=== PATIENT | female | born 1945 | race Caucasian/White ===

== ENCOUNTER → 2017-06-15 12:13 | Outpatient (CLI) | payer MEDICARE, OTHER, SELFPAY ==
--- NOTE | 2017-06-15 12:19 | HPBI_ITS ---
MAMMOGRAPHY - BILATERAL SCREENING REASON FOR EXAM: Female, 72 years old. Routine annual screening examination. PERTINENT HISTORY: Sisters with breast cancer. Mother with breast cancer. Prior left excisional breast biopsy and stereotactic biopsy. TECHNIQUE: Digital bilateral breast lázaro (3D mammographic acquisition) in the CC and MLO projections. 2-D mediolateral oblique (MLO) and craniocaudad (CC) views of both breasts were obtained. CAD: Full Field Digital Mammography with Computer Added Detection was performed. COMPARISON: Comparison is made with prior study dated May 26, 2016 and February 28, 2015. FINDINGS: Breast Composition: There are scattered areas of fibroglandular density. Vision 1.2 cm x 1.3 cm well-defined nodular density in the medial retroareolar region of the right breast. Correlation with ultrasound is recommended. Stable bilateral benign appearing axillary lymph nodes. No other significant abnormalities are identified. HPBI/SCREENING MAMM (CAD), BILAT IMPRESSION: 1.2 cm x 1.3 cm nodular density in the medial retroareolar region of the right breast as described. Correlation with ultrasound is recommended. ASSESSMENT CATEGORY: BIRADS Category 0: Incomplete. Need additional imaging evaluation. A letter regarding these results will be sent to the patient by the facility within 30 days. Approximately 10% of breast cancers are not detected by mammography. A normal mammogram should not delay biopsy of a clinically suspicious abnormality. [id number] Electronically Signed: Arron Alas MD at 14:04 EDT Tel [phone], Service support ,
== END ==
PROVIDERS: Family Provider Family Medicine; PCP Family Medicine; Visit Provider Family Medicine
DX: Z12.31 Encounter for screening mammogram for malignant neoplasm of breast (principal)
CPT/HCPCS: 77063; 77067

== ENCOUNTER → 2017-06-20 09:57 | Outpatient (CLI) | payer MEDICARE, OTHER, SELFPAY ==
--- NOTE | 2017-06-20 09:58 | US_ITS ---
STUDY: ULTRASOUND BREAST - RIGHT REASON FOR EXAM: Female, 72 years old. Abnormal screening mammogram. TECHNIQUE: Axial and longitudinal images of the RIGHT breast were performed with a high resolution ultrasound transducer. COMPARISON: Comparison is made with prior mammogram dated June 15, 2017. FINDINGS: RIGHT Breast: There is a 9 mm x 9 mm x 5 mm cyst in the 3:00 position breast at 2 cm from the nipple. This corresponds to the mammographic findings. This also evidence of a focally dilated duct in the retroareolar region of the breasts. US/Breast Limited Unilateral IMPRESSION: The mammographic neurology corresponds to a 9 mm x 9 mm x 5 mm cyst. Routine mammographic follow-up is recommended. ASSESSMENT CATEGORY: BIRADS Category 2: Benign. A letter regarding these results will be sent to the patient by the facility within 30 days. Electronically Signed: Arron Alas MD at 11:17 EDT Tel [phone], Service support ,
== END ==
PROVIDERS: Family Provider Family Medicine; PCP Family Medicine; Visit Provider Family Medicine
DX: R92.8 Other abnormal and inconclusive findings on diagnostic imaging of breast (principal)
CPT/HCPCS: 76642

== ENCOUNTER → 2017-06-23 12:57 | Outpatient (CLI) | payer MEDICARE, OTHER, SELFPAY ==
--- NOTE | 2017-06-23 13:04 | HPBD_ITS ---
STUDY: DUAL ENERGY X-RAY ABSORPTIOMETRY / DXA REASON FOR EXAM: Female, 72 years old. 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 COMPARISON: None. FINDINGS: Lumbar Spine (L1-L4): g/cm2 (1.624) / T-score (3.7) / Z-score (5.4) Findings are suggestive of normal bone density . Left Femoral Neck: g/cm2 (0.911) / T-score (-0.9) / Z-score (0.8) Right Femoral Neck: g/cm2 (0.969) / T-score (-0.5) / Z-score (1.2) HPBD/Dexa Bone Density Study (HP) IMPRESSION: The patient is considered normal as outlined below according to World Jose Martin Organization (WHO) criteria . Reference Information: The T-score is the number of standard deviations above or below the standard which is normal for young adults at their peak bone mineral density. The World Health Organization (WHO) interprets the T-scores as follows: Above -1 Normal bone density Between -1 and -2.5 Osteopenia Equal to / or below -2.5 Osteoporosis As a practical clinical guideline, osteopenia may be graded as follows: Mild -1 through -1.5 Moderate -1.6 through -2.0 Severe -2.1 through -2.4 The Z-score is the number of standard deviations above or below age-matched controls. A Z-score of less than -1.5 would be considered abnormal. References: 1. NIH Osteoporosis and Related Bone Diseases http://www.osteo.org 2. International Society for Clinical Densitometry http://www.iscd.org 3. National Osteoporosis Foundation http://www.nof.org Electronically Signed: Sly Tsang MD at 10:30 EDT Tel , Service support ,
== END ==
PROVIDERS: Family Provider Family Medicine; PCP Family Medicine; Visit Provider Family Medicine
DX: Z78.0 Asymptomatic menopausal state (principal)
CPT/HCPCS: 77080

== ENCOUNTER → 2017-08-09 11:25 | Outpatient (CLI) | payer MEDICARE, OTHER, SELFPAY ==
--- NOTE | 2017-08-09 11:30 | RAD_ITS ---
STUDY: X-RAY - LUMBAR SPINE REASON FOR EXAM: Female, 72 years old. Degenerative disc disease of the lumbar spine. TECHNIQUE: 5 view(s) of the lumbar spine were obtained. COMPARISON: Prior comparison studies are not available for review at this time. FINDINGS: There is straightening of the normal lumbar lordosis. There is no substantial scoliosis. There is a normal alignment of the vertebrae. There is multilevel endplate spondylosis of the lumbar vertebrae. There is multi-level degenerative disc disease with multi-level disc space narrowing. There is no demonstrated fracture. There is multilevel degenerative arthropathy of the facet joints of the lumbar spine. There is multilevel thoracic spondylosis of the thoracic spine. There are multiple pelvic calcifications and may represent phleboliths. RAD/L/S Spine Min 4 Views IMPRESSION: Severe multilevel degenerative disc disease and degenerative arthropathy of the lumbar spine. Electronically Signed: Nata English MD at 11:27 EDT , Service support ,
--- NOTE | 2017-08-09 11:30 | RAD_ITS ---
STUDY: X-RAY - PELVIS AND LEFT HIP REASON FOR EXAM: Female, 72 years old. Left-sided hip pain. TECHNIQUE: Radiological exam, hip, unilateral, with pelvis when performed; 2 or 3 views. COMPARISON: None. FINDINGS: There is a non-specific bowel gas pattern. Normal visualized soft tissue structures. There is degenerative disc disease of lower lumbar spine with disc space narrowing and vacuum disc phenomenon. The sacrum and iliac wings are obscured by bowel gas. Normal bilateral superior and inferior pubic rami. Normal pubic symphysis. Normal bilateral ischial tuberosities. Normal visualized femoral head. There is osteoarthritic spur formation of the acetabular rim. There is moderate articular joint space narrowing of the hip. RAD/Hip 2-3 Views with Pelvis IMPRESSION: 1. Degenerative arthropathy of the left hip with joint space narrowing and predisposition to femoral acetabular impingement. 2. Multilevel degenerative disc disease of the lumbar spine. Electronically Signed: Nata English MD at 10:52 EDT , Service support ,
== END ==
PROVIDERS: Family Provider Family Medicine; PCP Family Medicine; Visit Provider Family Medicine
DX: M51.36 Other intervertebral disc degeneration, lumbar region (principal)
CPT/HCPCS: 72110; 73502

== ENCOUNTER → 2017-08-16 09:38 | Outpatient (CLI) | payer MEDICARE, OTHER, SELFPAY ==
[2017-08-16 12:48] LABS: Creatinine, Serum 1.14 mg/dL (0.55-1.02); EST Glomerular Filtration Rate 50 mL/min (>60); Est Glom Filt Rate - Afr Amer 60 mL/min (>60)
== END ==
PROVIDERS: Family Provider Family Medicine; PCP Family Medicine; Visit Provider Orthopaedic Surgery
DX: M47.896 Other spondylosis, lumbar region (principal); M25.562 Pain in left knee; N18.9 Chronic kidney disease, unspecified
CPT/HCPCS: 36415; 82565

== ENCOUNTER → 2018-01-31 09:08 | Outpatient (CLI) | payer MEDICARE, OTHER, SELFPAY ==
[2018-01-31 10:31] LABS: ALB/GLOB Ratio 0.9 RATIO (0.9-2.4); AST(SGOT) 25 U/L (15-37); Alanine Aminotransfer ALT/SGPT 28 U/L (13-56); Albumin, Serum 3.6 g/dL (3.2-5.0); Alkaline Phosphatase 106 U/L (45-117); Anion Gap 8 (5-15); BUN 15 mg/dL (7-18); Chloride 106 mmol/L (98-107); EST Glomerular Filtration Rate 58 mL/min (>60); Est Glom Filt Rate - Afr Amer 70 mL/min (>60); Glucose 89 mg/dL (74-106); Protein, Total 7.6 g/dL (6.4-8.2); Sodium Level 143 mmol/L (136-145)
== END ==
PROVIDERS: Family Provider Family Medicine; PCP Family Medicine; Visit Provider Family Medicine
DX: I10 Essential (primary) hypertension (principal)
CPT/HCPCS: 36415; 80053

== ENCOUNTER → 2018-05-09 09:09 | Outpatient (CLI) | payer MEDICARE, OTHER, SELFPAY ==
[2018-05-09 12:36] LABS: ALB/GLOB Ratio 1.1 RATIO (0.9-2.4); AST(SGOT) 19 U/L (15-37); Alanine Aminotransfer ALT/SGPT 28 U/L (13-56); Albumin, Serum 3.8 g/dL (3.2-5.0); Alkaline Phosphatase 109 U/L (45-117); Anion Gap 9 (5-15); BUN 22 mg/dL (7-18); BUN/Creat Ratio 22.5 RATIO (10-20); Chloride 104 mmol/L (98-107); Creatinine, Serum 0.98 mg/dL (0.55-1.02); EST Glomerular Filtration Rate 59 mL/min (>60); Est Glom Filt Rate - Afr Amer 72 mL/min (>60); Globulin 3.4 g/dL (2.2-4.2); Glucose 76 mg/dL (74-106); Potassium 4.6 mmol/L (3.5-5.1); Protein, Total 7.2 g/dL (6.4-8.2); Sodium Level 143 mmol/L (136-145)
== END ==
PROVIDERS: Family Provider Family Medicine; PCP Family Medicine; Visit Provider Family Medicine
DX: I10 Essential (primary) hypertension (principal)
CPT/HCPCS: 36415; 80053

== ENCOUNTER → 2018-07-25 12:18 | Outpatient (CLI) | payer MEDICARE, OTHER, SELFPAY ==
--- NOTE | 2018-07-25 12:21 | BI_ITS ---
MAMMOGRAPHY - BILATERAL SCREENING 3-D TOMOSYNTHESIS REASON FOR EXAM: Female, 73 years old. Bilateral Screening 3-D tomosynthesis PERTINENT HISTORY: No significant family history. TECHNIQUE: 2-D mammograms and 3-D Tomosynthesis of the breast (s) were performed. CAD was performed. COMPARISON: June 15, 2017 FINDINGS: The breast composition is composed of scattered fibroglandular density. I now see an approximately 1.2 cm, ovoid nodule within the mid to deep right breast positioned slightly superior to the nipple line and within the inner region. This finding is positioned approximately 7 cm from the nipple base. Recommend further evaluation with sonographic characterization. The left breast appears stable without evidence of malignancy. BI/SCREENING MAMM (CAD), BILAT IMPRESSION: Follow-up as above further evaluation as above. ASSESSMENT CATEGORY: BIRADS Category 0: Incomplete. Need additional imaging evaluation as above. A letter regarding these results will be sent to the patient by the facility within 30 days. Right breast sonographic evaluation indicated. FOLLOW UP RECOMMENDATION: Yearly follow up mammogram recommended. (A) Approximately 10% of breast cancers are not detected by mammography. A normal mammogram should not delay biopsy of a clinically suspicious abnormality. Electronically Signed: Kaiser Portillo MD at 14:01 EDT , Service support ,
== END ==
PROVIDERS: Family Provider Family Medicine; PCP Family Medicine; Referring Provider Family Medicine; Visit Provider Family Medicine
DX: Z12.31 Encounter for screening mammogram for malignant neoplasm of breast (principal)
CPT/HCPCS: 77063; 77067

== ENCOUNTER → 2018-07-28 10:56 | Outpatient (CLI) | payer MEDICARE, OTHER, SELFPAY ==
--- NOTE | 2018-07-28 10:59 | US_ITS ---
STUDY: ULTRASOUND BREAST - RIGHT REASON FOR EXAM: Female, 73 years old. Abnormal mammogram TECHNIQUE: Axial and longitudinal images of the RIGHT breast were performed with a high resolution ultrasound transducer. COMPARISON: 06/20/2017 FINDINGS: RIGHT Breast: There is a stable hypoechoic 0.6 x 0.9 x 0.7 cm nonshadowing nonvascular hypoechoic mass at 3:00. There is no interval change since the previous study. There is no new suspicious shadowing lesion architectural distortion or associated calcifications. US/Breast Limited Unilateral IMPRESSION: Stable well-defined hypoechoic 9 shadowing, nonvascular mass. This likely either represents lymph node or fibroadenoma. No specific follow-up is needed unless there is a change in its presentation. ASSESSMENT CATEGORY: BIRADS Category 2: Benign. A letter regarding these results will be sent to the patient by the facility within 30 days. Electronically Signed: Stewart Vargas MD at 13:07 EDT , Service support ,
== END ==
PROVIDERS: Family Provider Family Medicine; PCP Family Medicine; Referring Provider Family Medicine; Visit Provider Family Medicine
DX: R92.8 Other abnormal and inconclusive findings on diagnostic imaging of breast (principal)
CPT/HCPCS: 76642

== ENCOUNTER → 2018-11-08 | Outpatient (CLI) | payer MEDICARE, OTHER, SELFPAY ==
[2018-11-08 13:03] LABS: Anion Gap 5 (5-15); BUN 17 mg/dL (7-18); BUN/Creat Ratio 17.9 RATIO (10-20); Calcium,Total 8.8 mg/dL (8.5-10.1); Chloride 106 mmol/L (98-107); Cholesterol 188 mg/dL (200); Creatinine, Serum 0.95 mg/dL (0.55-1.02); EST Glomerular Filtration Rate 61 mL/min (>60); Est Glom Filt Rate - Afr Amer 74 mL/min (>60); Glucose 94 mg/dL (74-106); High Density Lipoprotein 45 mg/dL; Potassium 4.1 mmol/L (3.5-5.1); Sodium Level 138 mmol/L (136-145); Triglycerides 215 mg/dL; Very Low Density Lipoprotein 43 mg/dL (5-40)
== END | disposition home or self-care (01) ==
LOC: MFPLAB 10:50
PROVIDERS: Family Provider Family Medicine; PCP Family Medicine; Referring Provider Family Medicine; Visit Provider Family Medicine
DX: I10 Essential (primary) hypertension (principal)
CPT/HCPCS: 36415; 80048; 80061

== ENCOUNTER → 2018-11-15 10:10 | Outpatient (CLI) | payer MEDICARE, OTHER, SELFPAY ==
--- NOTE | 2018-11-15 10:13 | RAD_ITS ---
STUDY: X-RAY - RIGHT KNEE REASON FOR EXAM: Female, 73 years old. Pain TECHNIQUE: 4 view(s) of the knee. COMPARISON: None. FINDINGS: Normal visualized distal femur. Normal visualized proximal tibia and fibula. Normal proximal tibiofibular articulation. Medial compartment prosthesis is noted. Narrowed lateral femorotibial compartment. Normal patellofemoral articulation with mild patellar spurring. The soft tissue structures are unremarkable. RAD/Knee 4 or More Views IMPRESSION: Degenerative changes. Status post medial compartment prosthesis placement Electronically Signed: Eugene Hagan MD at 20:49 EDT , Service support ,
--- NOTE | 2018-11-15 10:13 | RAD_ITS ---
STUDY: X-RAY - LEFT KNEE REASON FOR EXAM: Female, 73 years old. Pain TECHNIQUE: 4 view(s) of the knee. COMPARISON: None. FINDINGS: Normal visualized distal femur. Normal visualized proximal tibia and fibula. Normal proximal tibiofibular articulation. Narrowed medial femorotibial compartment with spurring of the medial femoral and tibial condyles.. Normal lateral femorotibial compartment. Narrowed patellofemoral articulation with mild patellar spurring. The soft tissue structures are unremarkable. RAD/Knee 4 or More Views IMPRESSION: Moderate osteoarthritic changes. Electronically Signed: Eugene Hagan MD at 21:06 EDT , Service support ,
== END ==
PROVIDERS: Family Provider Family Medicine; PCP Family Medicine; Referring Provider Family Medicine; Visit Provider Family Medicine
DX: M25.561 Pain in right knee (principal); M25.562 Pain in left knee
CPT/HCPCS: 73564

== ENCOUNTER → 2018-12-29 10:50 | Outpatient (CLI) | payer MEDICARE, OTHER, SELFPAY ==
[2018-12-29 12:39] LABS: Absolute Lymphocyte Count 1.38 X10^3/uL (0.83-4.51); Absolute Neutrophil Count 3.2 X10^3/uL (2.0-7.7); Basophil# 0.08 X10^3/uL; Basophil% 1.4 % (0-1); Eosinophil# 0.23 X10^3/uL; Eosinophils% 4.1 % (0-5); Hematocrit 48.4 % (37-47); Hemoglobin 15.5 g/dL (12.0-15.0); Lymphocyte # 1.38 X10^3/ul (4.0); Lymphocyte % 24.8 % (19-41); Mean Corpuscular Hgb 30.2 pg (27.0-32.0); Mean Corpuscular Volume 94.2 fL (81-99); Mean Platelet Vol. 11.4 fl (6.2-12.0); Monocyte# 0.63 X10^3/uL; Monocyte% 11.3 % (0-10); NRBC Flagged by Analyzer 0 % (0-5); Neutrophil # 3.23 X10^3/uL (2.7-7.7); Neutrophil % 58.2 % (47-70); Platelet Count 215 K/mm3 (150-450); RBC Distribution Width CV 12.7 % (11.6-14.6); RBC Distribution Width SD 44.2 fl (35.1-43.9); Red Blood Count 5.14 M/mm3 (4.2-5.4); White Blood Count 5.6 K/mm3 (4.4-11.0)
[2018-12-29 12:51] LABS: Erythrocyte Sedimentation Rate 6 mm/hr (0-30)
== END ==
PROVIDERS: Family Provider Family Medicine; PCP Family Medicine; Referring Provider Specialist; Visit Provider Specialist
DX: Z01.812 Encounter for preprocedural laboratory examination (principal); Z01.818 Encounter for other preprocedural examination
CPT/HCPCS: 36415; 85025; 85652; 86140

== ENCOUNTER → 2019-01-04 13:43 | Outpatient (CLI) | payer MEDICARE, OTHER, SELFPAY ==
[2019-01-04 14:30] LABS: RBC /Synovial Fluid 0.109 10^6/uL (0); Synovial Fld Mononuclear WBC % 84.6 %; Synovial Fld Polynuclear WBC # 0.092 10^3/uL; Synovial Fld Polynuclear WBC % 15.4 %
[2019-01-04 14:34] LABS: AUTO B FLUID DILUENT BKGD CT WBC <0.1 RBC <0.01 (W<.1,R<.01); Appearance /Synovial Fluid Sl Cl (CLEAR); Color / Synovial Fluid Red (Pale Yellow); Source / Synovial Fluid RIGHT KNEE
[2019-01-04 15:13] LABS: Body Fluid QC Type(s) BF1Q; Lymph 56 %; Monocyte /Synovial Fluid 23 %; Neutrophil 21 % (0-25)
[2019-01-05 12:30] LABS: Pathologist Comment Reviewed
== END ==
PROVIDERS: Family Provider Family Medicine; PCP Family Medicine; Referring Provider Specialist; Visit Provider Specialist
DX: Z96.651 Presence of right artificial knee joint (principal)
CPT/HCPCS: 87015; 87070; 87075; 87101; 87116; 87205; 87206; 89050; 89051

== ENCOUNTER → 2019-08-01 11:18 | Outpatient (CLI) | payer MEDICARE, SELFPAY ==
[2019-08-01 15:58] LABS: Anion Gap 5 (5-15); BUN 15 mg/dL (7-18); BUN/Creat Ratio 14.9 RATIO (10-20); Calcium,Total 9.2 mg/dL (8.5-10.1); Chloride 105 mmol/L (98-107); Cholesterol 196 mg/dL (200); Creatinine, Serum 1.01 mg/dL (0.55-1.02); EST Glomerular Filtration Rate 57 mL/min (>60); Est Glom Filt Rate - Afr Amer 69 mL/min (>60); Glucose 98 mg/dL (74-106); High Density Lipoprotein 47 mg/dL; Potassium 4.3 mmol/L (3.5-5.1); Sodium Level 137 mmol/L (136-145); Triglycerides 216 mg/dL; Very Low Density Lipoprotein 43 mg/dL (5-40)
== END ==
PROVIDERS: PCP Family Medicine; Referring Provider Family Medicine; Visit Provider Family Medicine
DX: I10 Essential (primary) hypertension (principal)
CPT/HCPCS: 36415; 80048; 80061

== ENCOUNTER → 2019-08-14 10:55 | Outpatient (CLI) | payer MEDICARE, SELFPAY ==
--- NOTE | 2019-08-14 10:58 | BI_ITS ---
MAMMOGRAPHY - BILATERAL SCREENING REASON FOR EXAM: Female, 74 years old. Routine annual screening examination. PERTINENT HISTORY: Sister with breast cancer. Mother with breast cancer. Prior left stereotactic biopsy and excisional breast biopsy. TECHNIQUE: Digital bilateral breast constance (3D mammographic acquisition) in the CC and MLO projections. 2-D mediolateral oblique (MLO) and craniocaudad (CC) views of both breasts were obtained. CAD: Full Field Digital Mammography with Computer Added Detection was performed. COMPARISON: Comparison is made with prior examination dated July 25, 2018 and June 15, 2017. FINDINGS: Breast Composition: There are scattered areas of fibroglandular density. There are no dominant masses or suspicious calcifications. Stable 1.2 cm ovoid nodule in the deep mid right breast. This is unchanged. No other significant abnormalities are identified. There has been no significant change since the prior study. BI/SCREEN MAMM (CAD) W/CONSTANCE BILAT IMPRESSION: Stable bilateral screening mammogram. Yearly follow-up mammogram recommended. (A) ASSESSMENT CATEGORY: BIRADS Category 2: Benign. A letter regarding these results will be sent to the patient by the facility within 30 days. Approximately 10% of breast cancers are not detected by mammography. A normal mammogram should not delay biopsy of a clinically suspicious abnormality. [id number] Electronically Signed: Arron Alas, at 12:45 EDT , Service support ,
--- NOTE | 2019-08-14 11:12 | BD_ITS ---
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 COMPARISON: Comparison is made with prior study dated June 23, 2017. FINDINGS: Lumbar Spine (L1-L4): g/cm2 (1.395) / T-score (1.9) / Z-score (3.6) Findings are suggestive of normal bone density with a low fracture risk. Left Femur Total: g/cm2 (1.083) / T-score (0.6) / Z-score (2.2) Left Femoral Neck: g/cm2 (0.919) / T-score (-0.9) / Z-score (1.0) The T-Scores on the most recent prior examination were: Lumbar Spine (L1-L4): There has been worsening of bone density since the previous examination. Left Femur Total: which represents a worsening of 1.9%. BD/Dexa Bone Density Study IMPRESSION: The patient is considered normal as outlined below according to World Jose Martin Organization (WHO) criteria with a low fracture risk. There has been worsening of bone density since the previous examination. Reference Information: The T-score is the number of standard deviations above or below the standard which is normal for young adults at their peak bone mineral density. The World Health Organization (WHO) interprets the T-scores as follows: Above -1 Normal bone density Between -1 and -2.5 Osteopenia Equal to / or below -2.5 Osteoporosis As a practical clinical guideline, osteopenia may be graded as follows: Mild -1 through -1.5 Moderate -1.6 through -2.0 Severe -2.1 through -2.4 The Z-score is the number of standard deviations above or below age-matched controls. A Z-score of less than -1.5 would be considered abnormal. References: 1. NIH Osteoporosis and Related Bone Diseases http://www.osteo.org 2. International Society for Clinical Densitometry http://www.iscd.org 3. National Osteoporosis Foundation http://www.nof.org Electronically Signed: Arron Alas, at 12:02 EDT , Service support ,
== END ==
PROVIDERS: PCP Family Medicine; Referring Provider Family Medicine; Visit Provider Family Medicine
DX: Z12.31 Encounter for screening mammogram for malignant neoplasm of breast (principal); Z78.0 Asymptomatic menopausal state; Z80.3 Family history of malignant neoplasm of breast
CPT/HCPCS: 77063; 77067; 77080

== ENCOUNTER 2020-03-01 15:30 | Inpatient (IN) | payer MEDICARE, SELFPAY ==
[2020-03-01] VITALS (13 sets, daily range): BP systolic 114–156; BP diastolic 50–101; PULSE 68–82; RESP 17–29; TEMP 37.3–38.7; O2SAT 92–97; BMI 45.7; BMI 46.7
--- NOTE | 2020-03-01 15:52 | ED.DCSUM_ITS ---
- ER Visit Summary Date of Service: 03/01/20 Chief Complaint: Lightheaded History of Present Illness: The patient is a [address] Gale. She reports that she is lightheaded and began yesterday. She had to increase when she stands. She has not passed out. She denies any vertigo. Patient does not realize that she has a fever. She reports that she has chills that started this morning. She has mild shortness of breath and cough. She denies any chest pain. She reports that she has been nauseated and vomited 4 times today. No blood in her emesis. No diarrhea. She does complain of dysuria that began today as well. She also complains of suprapubic and back pain and is concerned that she has a kidney stone. Patient complains of generalized weakness. She reports that because of this she fell getting into the car. She denies any injuries. No blow to the head or loss of consciousness. No neck, back, shoulder, wrist, or hip pain. Physical Examination: Vitals: 101.6, 156/101, 71, 20, 97% room air which is not hypoxic. General: Well-nourished and well-developed. Head: Normocephalic atraumatic. Neck: Supple, no lymphadenopathy. No JVD. Nontender. Cardiovascular: Regular rate and rhythm. No murmurs. Respiratory: No respiratory distress. Clear to auscultation bilaterally. Abdominal: Soft, nontender, nondistended, normal bowel sounds. No guarding, rebound, or peritoneal signs. Back: Nontender. No CVA tenderness. Extremities: Nontender, no edema. Skin: Normal color, no rash. Neurologic: Alert and oriented ?3. Cranial nerves II through XII are intact. Normal strength and sensation. Psych: Normal affect. Test Results: Lactic acid is 2.1. Chem-7 shows a sodium 134, BUN 25, creatinine 1.24. CBC shows a white count of 15.8 with 89 segs neutrophils and 4 lymphocytes. Hemoglobin 15.1. LFTs show an AST of 44. UA shows 50-100 white blood cells, 10-25 red blood cells, leukocytes, blood, and ketones. COVID-19 rapid antigen is negative. Clinical Impression(s) from Imaging Studies Chest X-Ray 03/01/20 16:35 IMPRESSION: Nonacute portable x-ray examination of the chest. Electronically Signed: Laith Chandler MD ([place]) at 17:04 EST , Service support , Abdomen/Pelvis CT 03/01/20 16:41 IMPRESSION: 1. Left perinephric stranding and mild left hydroureter (no hydronephrosis). No urinary tract calcifications. May represent recently passed calculus or urinary tract infection, however, a distal ureteral obstruction cannot be entirely excluded. Electronically Signed: Laith Chandler MD ([place]) at 16:59 EST , Service support , Emergency Department Course and Treatment: Patient refused pain or nausea medications. She was treated with Tylenol p.o. She is resting more comfortably. She was given 2 g of Rocephin IV. Treatment Plan: Patient has generalized weakness and is quite ataxic. She will be discussed with the hospitalist and admitted for further evaluation and treatment. Disposition: Admitted in stable condition. Impression: 1. Pyelonephritis. 2. Sepsis. This note was generated with [employer] dictation software. It may contain incorrect words, spelling, and punctuation that were not noted in review of the chart prior to signing ED Disposition - Plan for ED Patient: Referrals: Brendon Gonzalez MD [Primary Care Provider] -
[2020-03-01] MEDS: Acetaminophen 500 MG Tablet 1000 MG PO (16:04)
[2020-03-01 16:29] LABS: Absolute Lymphocyte Count 0.59 X10^3/uL (0.83-4.51); Absolute Neutrophil Count 14.2 X10^3/uL (2.0-7.7); Basophil# 0.06 X10^3/uL; Basophil% 0.4 % (0-1); Eosinophil# 0.05 X10^3/uL; Eosinophils% 0.3 % (0-5); Hematocrit 45.6 % (37-47); Hemoglobin 15.1 g/dL (12.0-15.0); Lymphocyte # 0.59 X10^3/ul (4.0); Lymphocyte % 3.7 % (19-41); Mean Corp Hgb Conc 33.1 g/dL (32-36); Mean Corpuscular Hgb 30.9 pg (27.0-32.0); Mean Corpuscular Volume 93.3 fL (81-99); Mean Platelet Vol. 11.4 fl (6.2-12.0); Monocyte# 0.88 X10^3/uL; Monocyte% 5.6 % (0-10); NRBC Flagged by Analyzer 0 % (0-5); Neutrophil # 14.15 X10^3/uL (2.7-7.7); Neutrophil % 89.4 % (47-70); POSITIVE DIFFERENTIAL YES; Platelet Count 180 K/mm3 (150-450); RBC Distribution Width CV 13.8 % (11.6-14.6); RBC Distribution Width SD 46.4 fl (35.1-43.9); Red Blood Count 4.89 M/mm3 (4.2-5.4); White Blood Count 15.8 K/mm3 (4.4-11.0)
--- NOTE | 2020-03-01 16:35 | RAD_ITS ---
STUDY: X-RAY CHEST REASON FOR EXAM: Female, 74 years old. DIZZINESS. TECHNIQUE: AP COMPARISON: None. FINDINGS: EKG leads project over the chest. The lungs are clear and expanded. There is no demonstrated pleural abnormality. There is borderline cardiomegaly. Normal mediastinum and micha. Normal visualized pulmonary arteries. Normal visualized aortic arch and descending thoracic aorta. Normal visualized thoracic spine. Normal visualized ribs, clavicles, and shoulders. There is no demonstrated abnormality of the visualized soft tissue structures of the upper abdomen. RAD/Chest 1 View (Portable) IMPRESSION: Nonacute portable x-ray examination of the chest. Electronically Signed: Laith Chandler MD ([place]) at 17:04 EST , Service support ,
[2020-03-01 16:40] LABS: Bacteria 0 SEEN /hpf (None Seen); Mucous, Urine 0 SEEN /hpf (<or=2+)
--- NOTE | 2020-03-01 16:41 | CT_ITS ---
STUDY: CT ABDOMEN AND PELVIS WITHOUT CONTRAST REASON FOR EXAM: Female, 74 years old. KIDNEY STONE. HX OF KIDNEY STONES, HYSTERECTOMY, AND HTN RADIATION DOSAGE (If Supplied By Facility): CTDIvol = ( 23.07 ) mGy, DLP = ( 1020.05 ) mGycm TECHNIQUE: Transaxial images were obtained from the dome of the diaphragm to the symphysis pubis without oral contrast, and without intravenous contrast. Sagittal and coronal images were reconstructed. Individualized dose optimization techniques were used for this CT. COMPARISON: None. FINDINGS: The visualized lung bases are unremarkable. The visualized portions of the heart are within normal limits. Simple cyst of the right hepatic lobe with operative changes along the right posterior hepatic capsule. There are multiple gallstones. Normal spleen. Normal pancreas. Normal bilateral adrenal glands. Normal right kidney. Asymmetric left perinephric stranding with mild left hydroureter, however, no reji hydronephrosis. No urinary tract calcifications are identified. Normal visualized stomach. There is a small duodenal diverticulum. There are multiple colonic diverticula consistent with diverticulosis. The appendix is visualized and appears normal. There is diffuse atherosclerotic calcification of the abdominal aorta, without a demonstrated aneurysm. Normal inferior vena cava. Normal retroperitoneum. Normal urinary bladder. There is absence of the uterus consistent with a prior hysterectomy. Operative changes of the abdominal wall. There are diffuse degenerative changes of the visualized lumbar spine. CT/Abdomen/Pelvis without Cont IMPRESSION: 1. Left perinephric stranding and mild left hydroureter (no hydronephrosis). No urinary tract calcifications. May represent recently passed calculus or urinary tract infection, however, a distal ureteral obstruction cannot be entirely excluded. Electronically Signed: Laith Chandler MD ([place]) at 16:59 EST , Service support ,
[2020-03-01 16:44] LABS: Color, Urine Yellow (Yellow); Glucose, Dipstick Normal (Normal); Ketone-Dipstick 5 mg/dl (Negative); Leukocyte Esterase-Dipstick 500 /ul (Negative); Nitrite-Dipstick Negative (Negative); Occult Blood-Urine 150 /ul (Negative); Protein-Dipstick 30 mg/dl (Negative); Specific Gravity, Urine 1.005 (1.002-1.030); Urine Bilirubin Dipstick Negative (Negative); Urine Clarity Cloudy (Clear); Urine Urobilinogen Normal (Normal)
[2020-03-01 16:45] LABS: ALB/GLOB Ratio 0.8 RATIO (0.9-2.4); AST(SGOT) 44 U/L (15-37); Alanine Aminotransfer ALT/SGPT 36 U/L (13-56); Albumin, Serum 3.3 g/dL (3.2-5.0); Alkaline Phosphatase 96 U/L (45-117); Anion Gap 8 (5-15); BUN 25 mg/dL (7-18); BUN/Creat Ratio 20.2 RATIO (10-20); Calcium,Total 8.7 mg/dL (8.5-10.1); Chloride 102 mmol/L (98-107); Creatinine, Serum 1.24 mg/dL (0.55-1.02); EST Glomerular Filtration Rate 45 mL/min (>60); Est Glom Filt Rate - Afr Amer 54 mL/min (>60); Estimated Creatinine Clearance 31.96 ml/min; Globulin 4.2 g/dL (2.2-4.2); Glucose 103 mg/dL (74-106); Potassium 4.9 mmol/L (3.5-5.1); Protein, Total 7.5 g/dL (6.4-8.2); Sodium Level 134 mmol/L (136-145)
[2020-03-01 16:49] LABS: Differential Indicated SCAN CRITERIA MET
[2020-03-01 16:55] LABS: Lactic Acid 2.1 mmol/L (0.4-1.9)
[2020-03-01 17:08] LABS: Amorphous Sediment 1+ PHOS; Red Blood Cells-Urine 10-25 SEEN /hpf (0-5); Squamous Epithelial Cells - UA 0-5 SEEN /hpf (5-10); White Blood Cells 50-100 SEEN /hpf (0-5)
[2020-03-01 17:08] LABS: Differential Comment SCANNED; Platelet Estimate ADEQUATE (ADEQ); Red Cell Morphology NORM C+C NORMAL (NORM C&C)
--- NOTE | 2020-03-01 17:27 | NURSING ---
PCU SEPSIS, PYELONPHRITIS MICHAEL
[2020-03-01 18:25] LABS: International Normalized Ratio 1.1; Partial Thromboplast Time 29.9 Seconds (24.1-36.2); Prothrombin Time (Protime)PT. 13.9 SECONDS (11.7-14.9)
[2020-03-01] MEDS: 0.9% Normal Saline 1,000 ML 100 ML IV (19:41)
--- NOTE | 2020-03-01 20:08 | PCM.HP.STD ---
History of Present Illness Date of Admission: 03/01/20 Chief Complaint: Back pain and dysuria with fever The patient is a 74 year old F PMH as below who presents to the hospital with with back pain last night that kept her up until about 1 AM this morning. She was able to sleep but then this morning she woke up with a fever, and burning with urination. She denies any shortness of breath or cough but she states that her daughter was significantly concerned because she tested positive for Covid on Tuesday. The patient states that she has not seen her daughter for the last 2weeks and had a negative Covid antigen here in the ER. Chest x-ray was unremarkable and she remains on room air and is not hypoxic. She says that she feels better with fluids and the dose of antibiotics. She did have CT scan of her abdomen and pelvis which did show a left perinephric stranding, the UA demonstrated 500 leukocyte esterase with negative nitrite 10-25 red blood cells with 50-100 white blood cells with no bacteria. It is possible to be an infection there could also have been a passed stone. She did have an elevated lactic acid to 2.1 and a creatinine that was slightly elevated to 1.24 up from her baseline of around 1. Past Medical History Allergies Sulfa (Sulfonamide Antibiotics) Allergy (Verified 03/01/20 15:30) Rash Home Medications: Ambulatory Orders Medication Instructions Recorded Acetaminophen [Tylenol Arthritis] 500 mg PO BID 02/26/15 Amlodipine Besylate/Valsartan 1 each PO DAILY 02/26/15 [Amlodipine-Valsartan 5-320 mg] Ascorbic Acid [Vitamin C] 500 mg PO DAILY@0800 02/26/15 Atenolol [Tenormin (Beta Delfina)] 50 mg PO QHS 02/26/15 Cetirizine HCl [Allergy Relief] 25 mg PO DAILY 02/26/15 Cholecalciferol (Vitamin D3) 5,000 unit PO DAILY 02/26/15 [Vitamin D3] Cyanocobalamin (Vitamin B-12) 1,000 mcg PO DAILY 02/26/15 [Vitamin B-12] Gluc Carbone/Chondro Carbone A/Vit C/Mn 1 each PO BID 02/26/15 [Glucosamine 1,500 Complex Cp] Multivitamins,Therapeutic 1 tablet PO DAILY 02/26/15 [Multivitamin] Pregabalin [Lyrica] 50 mg PO BID 02/26/15 Ranitidine [Zantac] 150 mg PO DAILY 02/26/15 Solifenacin Succinate [Vesicare] 10 mg PO DAILY 02/26/15 Surgical History: arthroscopy, knee, hysterectomy Smoking Status: Never smoker Alcohol: None Drugs: None - *Family History Maternal History Items: Heart Disease Paternal History Items: Heart Disease Review of Systems Constitutional: Reports: Chills, Fever. Denies: Weight Change HEENT: Reports: Head Aches. Denies: Sinus Congestion, Sinus Drainage Cardiovascular: Denies: Chest Pain, Palpitations Respiratory: Denies: Cough, Shortness of breath at rest, Sputum production Gastrointestinal: Denies: Abdominal Pain, Nausea, Vomiting Genitourinary: Reports: Dysuria Musculoskeletal: Reports: Back Pain. Denies: Joint Pain, Joint Tenderness Skin: Denies: Rash, Wounds Neurological: Denies: Numbness, Tingling, Focal weakness Psychiatric: Denies: Anxiety, Depression Hematologic/ Lymphatic: Denies: Easy Bruising, Easy Bleeding VTE Information - Inpt Only VTE Present on Admission: No - Physical Exam Vitals/I&O's: Vital Signs Temp Pulse Resp BP Pulse Ox 99.8 F H 75 18 114/51 L 92 03/01/20 18:20 03/01/20 18:53 03/01/20 18:20 03/01/20 18:20 03/01/20 18:20 Oxygen Delivery Method Room Air Weight: 255 lb 9.6 oz Body Mass Index (BMI) 46.7 Intake and Output for Last 24 Hours 02/28/20 02/29/20 03/01/20 23:59 23:59 23:59 Intake Total 550 / 550 Balance 550 / 550 General: Alert, Oriented x3, Cooperative, No apparent distress HEENT: Atraumatic, PERRLA, EOMI, Normocephalic Oral: Dry Mucosa Neck: Supple, No JVD Lungs: Clear to auscultation, Normal air movement, No rhonchi, No wheeze, No rales Cardiovascular: Regular rate, Regular Rhythm, Normal S1, Normal S2, No murmurs Abdomen: Soft, Non Tender, Non-Distended, No Hepato-splenomegaly Extremities: No edema, Capillary Refill Less than 3 Seconds Skin: No rashes, No breakdown Neurological: Neuro grossly intact, Sensory exam intact to light touch and pain Psych/Mental Status: Normal Affect, Appropriate Microbiology Past 72 Hours 03/01/20 16:00 Mucosa - Nose SARS-CoV-2 Antigen (Rapid) - Final Laboratory Results 03/01/20 16:10: WBC 15.8 H, RBC 4.89, Hgb 15.1 H, Hct 45.6, MCV 93.3, MCH 30.9, MCHC 33.1, RDW Std Deviation 46.4 H, RDW Coeff of Luis Felipe 13.8, Plt Count 180, MPV 11.4, Immature Gran % (Auto) 0.600, Neut % (Auto) 89.4 H, Lymph % (Auto) 3.7 L, [place] % (Auto) 5.6, Eos % (Auto) 0.3, Baso % (Auto) 0.4, Absolute Neuts (auto) 14.2 H, Absolute Lymphs (auto) 0.59 L, Nucleated RBC % 0, Differential Comment SCANNED, Platelet Estimate ADEQUATE, RBC Morphology NORM C+C 03/01/20 16:10: PT 13.9, INR 1.1, APTT 29.9 03/01/20 16:10: Sodium 134 L, Potassium 4.9, Chloride 102, Carbon Dioxide 24.0, Anion Gap 8, BUN 25 H, Creatinine 1.24 H, Estim Creat Clear Calc 31.96, Est GFR (MDRD) Af Amer 54 L, Est GFR (MDRD) Non-Af 45 L, BUN/Creatinine Ratio 20.2 H, Glucose 103, Calcium 8.7, Total Bilirubin 0.70, AST 44 H, ALT 36, Alkaline Phosphatase 96, Total Protein 7.5, Albumin 3.3, Globulin 4.2, Albumin/Globulin Ratio 0.8 L 03/01/20 16:10: Lactic Acid 2.1 H* 03/01/20 16:30: Urine Color Yellow, Urine Clarity Cloudy, Urine pH 7.0, Ur Specific [place] 1.005, Urine Protein 30 H, Urine Glucose (UA) Normal, Urine Ketones 5 H, Urine Occult Blood 150 H, Urine Nitrite Negative, Urine Bilirubin Negative, Urine Urobilinogen Normal, Ur Leukocyte Esterase 500 H, Urine RBC 10-25 SEEN, Urine WBC 50-100 SEEN, Ur Squamous Epith Cells 0-5 SEEN, Amorphous Sediment 1+ PHOS, Urine Bacteria 0 SEEN, Urine Mucus 0 SEEN Current Medications Acetaminophen (Acetaminophen 325 Mg Tablet) 650 mg PO Q6H PRN PRN PRN Reason: Pain Score 1-10/Temp > 100.7 F Enoxaparin Sodium (Enoxaparin 40 Mg/0.4 Ml Syringe) 40 mg SC DAILY BERNY Sodium Chloride () 250 mls @ 15 mls/hr IV .[id number] PRN PRN Reason: Saline Flush Sodium Chloride () 250 mls @ 15 mls/hr IV .[id number] PRN PRN Reason: Additional IVPB Infusion Sodium Chloride () 1,000 mls @ 100 mls/hr IV .Q10H [facility] Last Admin: 03/01/20 19:41 Dose: 100 mls/hr Documented by: Ceftriaxone Sodium 2 gm/ (Sodium Chloride) 50 mls @ 100 mls/hr IV Q24 BERNY Melatonin (Melatonin 3 Mg Tablet) 3 mg PO QHS PRN PRN PRN Reason: INSOMNIA Ondansetron HCl (Ondansetron 4 Mg/2 Ml Vial) 4 mg IV Q8H PRN PRN PRN Reason: NAUSEA/VOMITING Sodium Chloride (0.9% Saline Lock 10 Ml Syringe) 10 - 40 ml IV UD PRN PRN Reason: SALINE FLUSH Assessment/Plan 1. Sepsis secondary to acute pyelonephritis -Based on SIRS criteria and source on CT scan, she is septic -Lactic acid was slightly elevated 2.1, will continue with IV fluids -Urine cultures pending, UA did not show any bacteria so this could also be a stone that passed -Continue with Rocephin -Denies any Covid contacts, her daughter who tested positive was tested on Tuesday and her results came back yesterday. Trinh states that she has not seen her daughter in over 2 weeks and is asymptomatic with a negative Covid antigen test 2. Hypertension -Blood pressures are stable -With her slight elevation in her kidney function will wait to recheck her renal function in the morning before restarting her Norvasc and valsartan combination -Can continue with atenolol 3. GERD -Stable -Continue with Zantac DVT: Lovenox Inpatient E&M: 61178 Init Hosp L2
[2020-03-01 20:19] LABS: Reflex Lactate? Y
[2020-03-01] MEDS: Atenolol 50 MG Tablet PO (21:11)
[2020-03-01] MEDS: Pregabalin 50 MG Capsule PO (21:11)
[2020-03-01] MEDS: Acetaminophen 325 MG Tablet 650 MG PO (21:16)
[2020-03-01 22:48] LABS: Lactic Acid 1.5 mmol/L (0.4-1.9)
[2020-03-02] VITALS (10 sets, daily range): BP systolic 101–156; BP diastolic 33–74; PULSE 71–84; RESP 16–18; TEMP 36.7–38.4; O2SAT 93–96
[2020-03-02] MEDS: 0.9% Normal Saline 1,000 ML 100 ML IV ×2 (05:08→15:36)
[2020-03-02 06:54] LABS: Absolute Lymphocyte Count 0.99 X10^3/uL (0.83-4.51); Absolute Neutrophil Count 14.8 X10^3/uL (2.0-7.7); Basophil# 0.07 X10^3/uL; Basophil% 0.4 % (0-1); Eosinophil# 0.05 X10^3/uL; Eosinophils% 0.3 % (0-5); Hematocrit 45.8 % (37-47); Hemoglobin 14.6 g/dL (12.0-15.0); Lymphocyte # 0.99 X10^3/ul (4.0); Lymphocyte % 5.8 % (19-41); Mean Corp Hgb Conc 31.9 g/dL (32-36); Mean Corpuscular Hgb 30.5 pg (27.0-32.0); Mean Corpuscular Volume 95.8 fL (81-99); Mean Platelet Vol. 10.6 fl (6.2-12.0); Monocyte# 1.04 X10^3/uL; Monocyte% 6.1 % (0-10); NRBC Flagged by Analyzer 0 % (0-5); Neutrophil # 14.84 X10^3/uL (2.7-7.7); Neutrophil % 86.6 % (47-70); Platelet Count 163 K/mm3 (150-450); RBC Distribution Width SD 49.6 fl (35.1-43.9); Red Blood Count 4.78 M/mm3 (4.2-5.4); White Blood Count 17.1 K/mm3 (4.4-11.0)
[2020-03-02 07:18] LABS: Anion Gap 5 (5-15); BUN 16 mg/dL (7-18); BUN/Creat Ratio 14.3 RATIO (10-20); Calcium,Total 8.4 mg/dL (8.5-10.1); Chloride 109 mmol/L (98-107); Creatinine, Serum 1.12 mg/dL (0.55-1.02); EST Glomerular Filtration Rate 51 mL/min (>60); Est Glom Filt Rate - Afr Amer 61 mL/min (>60); Estimated Creatinine Clearance 35.38 ml/min; Glucose 108 mg/dL (74-106); Potassium 4.1 mmol/L (3.5-5.1); Sodium Level 139 mmol/L (136-145)
[2020-03-02] MEDS: Ascorbic Acid 500 MG Tablet PO (08:40)
[2020-03-02] MEDS: Pregabalin 50 MG Capsule PO ×2 (08:40→20:42)
[2020-03-02] MEDS: Famotidine 20 MG Tablet PO (08:40)
[2020-03-02] MEDS: Enoxaparin 40 MG/0.4 ML Syringe SC (08:41)
--- NOTE | 2020-03-02 12:51 | PN_ITS ---
Reason for Visit: sepsis Subjective: Feeling better. No abdominal pain. Vitals/I&O's: Vital Signs Temp Pulse Resp BP Pulse Ox 37.5 C H 75 18 133/60 H 94 03/02/20 10:30 03/02/20 10:30 03/02/20 10:30 03/02/20 10:30 03/02/20 10:30 Oxygen Delivery Method Room Air Weight: 115.938 kg Body Mass Index (BMI) 46.7 Intake and Output for Last 24 Hours 02/29/20 03/01/20 03/02/20 23:59 23:59 23:59 Intake Total 1165 / 1165 2365 / 2365 Output Total 1500 / 1500 Balance 1165 / 1165 865 / 865 General: Alert, No apparent distress HEENT: Atraumatic, Normocephalic Oral: Moist Mucosa, No Gingival or Mucosal Lesions/ Ulcerations Neck: No Nodes, Thyroid Normal Size and Texture Lungs: Clear to auscultation, Normal air movement, No rhonchi, No wheeze, No rales Cardiovascular: Regular rate, Regular Rhythm, Normal S1, Normal S2, No murmurs Abdomen: Bowel Sounds Present, Soft, Non Tender, Non-Distended, No Hepato- splenomegaly Extremities: No edema, No Calf Tenderness Microbiology Past 72 Hours 03/01/20 16:25 Blood Culture (Wb) - Anticubital Right Blood Culture - Preli minary 03/01/20 16:30 Urine, Clean Catch Urine Culture - Preliminary Gram negative edmar 03/01/20 16:10 Blood Culture (Wb) - Right Forearm Blood Culture - Preliminary 03/01/20 16:00 Mucosa - Nose SARS-CoV-2 Antigen (Rapid) - Final Laboratory Results 03/01/20 16:10: WBC 15.8 H, RBC 4.89, Hgb 15.1 H, Hct 45.6, MCV 93.3, MCH 30.9, MCHC 33.1, RDW Std Deviation 46.4 H, RDW Coeff of Luis Felipe 13.8, Plt Count 180, MPV 11.4, Immature Gran % (Auto) 0.600, Neut % (Auto) 89.4 H, Lymph % (Auto) 3.7 L, [place] % (Auto) 5.6, Eos % (Auto) 0.3, Baso % (Auto) 0.4, Absolute Neuts (auto) 14.2 H, Absolute Lymphs (auto) 0.59 L, Nucleated RBC % 0, Differential Comment SCANNED, Platelet Estimate ADEQUATE, RBC Morphology NORM C+C 03/01/20 16:10: PT 13.9, INR 1.1, APTT 29.9 03/01/20 16:10: Sodium 134 L, Potassium 4.9, Chloride 102, Carbon Dioxide 24.0, Anion Gap 8, BUN 25 H, Creatinine 1.24 H, Estim Creat Clear Calc 31.96, Est GFR (MDRD) Af Amer 54 L, Est GFR (MDRD) Non-Af 45 L, BUN/Creatinine Ratio 20.2 H, Glucose 103, Calcium 8.7, Total Bilirubin 0.70, AST 44 H, ALT 36, Alkaline Phosphatase 96, Total Protein 7.5, Albumin 3.3, Globulin 4.2, Albumin/Globulin Ratio 0.8 L 03/01/20 16:10: Lactic Acid 2.1 H* 03/01/20 16:30: Urine Color Yellow, Urine Clarity Cloudy, Urine pH 7.0, Ur Specific [place] 1.005, Urine Protein 30 H, Urine Glucose (UA) Normal, Urine Ketones 5 H, Urine Occult Blood 150 H, Urine Nitrite Negative, Urine Bilirubin Negative, Urine Urobilinogen Normal, Ur Leukocyte Esterase 500 H, Urine RBC 10- 25 SEEN, Urine WBC 50-100 SEEN, Ur Squamous Epith Cells 0-5 SEEN, Amorphous Sediment 1+ PHOS, Urine Bacteria 0 SEEN, Urine Mucus 0 SEEN 03/01/20 21:55: Lactic Acid 1.5 03/02/20 06:48: WBC 17.1 H, RBC 4.78, Hgb 14.6, Hct 45.8, MCV 95.8, MCH 30.5, MCHC 31.9 L, RDW Std Deviation 49.6 H, RDW Coeff of Luis Felipe 14.0, Plt Count 163, MPV 10.6, Immature Gran % (Auto) 0.800, Neut % (Auto) 86.6 H, Lymph % (Auto) 5.8 L, [place] % (Auto) 6.1, Eos % (Auto) 0.3, Baso % (Auto) 0.4, Absolute Neuts (auto) 14.8 H, Absolute Lymphs (auto) 0.99, Nucleated RBC % 0 03/02/20 06:48: Sodium 139, Potassium 4.1, Chloride 109 H, Carbon Dioxide 25.0, Anion Gap 5, BUN 16, Creatinine 1.12 H, Estim Creat Clear Calc 35.38, Est GFR (MDRD) Af Amer 61, Est GFR (MDRD) Non-Af 51 L, BUN/Creatinine Ratio 14.3, Glucose 108 H, Calcium 8.4 L Current Medications Acetaminophen (Acetaminophen 325 Mg Tablet) 650 mg PO Q6H PRN PRN PRN Reason: Pain Score 1-10/Temp > 100.7 F Last Admin: 03/01/20 21:16 Dose: 650 mg Documented by: Ascorbic Acid (Ascorbic Acid 500 Mg Tablet) 500 mg PO DAILY@0800 [facility] Last Admin: 03/02/20 08:40 Dose: 500 mg Documented by: Atenolol (Atenolol 50 Mg Tablet) 50 mg PO QHS [facility] Last Admin: 03/01/20 21:11 Dose: 50 mg Documented by: Enoxaparin Sodium (Enoxaparin 40 Mg/0.4 Ml Syringe) 40 mg SC DAILY [facility] Last Admin: 03/02/20 08:41 Dose: 40 mg Documented by: Famotidine (Famotidine 20 Mg Tablet) 20 mg PO DAILY [facility] Last Admin: 03/02/20 08:40 Dose: 20 mg Documented by: Sodium Chloride () 250 mls @ 15 mls/hr IV .[id number] PRN PRN Reason: Saline Flush Sodium Chloride () 250 mls @ 15 mls/hr IV .[id number] PRN PRN Reason: Additional IVPB Infusion Sodium Chloride () 1,000 mls @ 100 mls/hr IV .Q10H [facility] Last Infusion: 03/02/20 11:59 Dose: 100 mls/hr Documented by: Ceftriaxone Sodium 2 gm/ (Sodium Chloride) 50 mls @ 100 mls/hr IV Q24 [facility] Last Infusion: 03/02/20 09:20 Dose: Infused Documented by: Melatonin (Melatonin 3 Mg Tablet) 3 mg PO QHS PRN PRN PRN Reason: INSOMNIA Ondansetron HCl (Ondansetron 4 Mg/2 Ml Vial) 4 mg IV Q8H PRN PRN PRN Reason: NAUSEA/VOMITING Pregabalin (Pregabalin 50 Mg Capsule) 50 mg PO BID [facility] Last Admin: 03/02/20 08:40 Dose: 50 mg Documented by: Sodium Chloride (0.9% Saline Lock 10 Ml Syringe) 10 - 40 ml IV UD PRN PRN Reason: SALINE FLUSH STROKE Vital Signs/Narrative: Vital Signs Temp Pulse Resp BP Pulse Ox 03/02/20 10:30 37.5 C H 75 18 133/60 H 94 Medical Necessity - Tobacco Use Smoking Status: Never smoker Assessment/Plan 1. severe sepsis: * POA * 2/2 * supportive mgmt 2. Acute pyelonephritis * CTX * follow up cultures 3. VTE prophylaxis: LMWH Inpatient E&M: 24486 Subs Hosp L2
[2020-03-02] MEDS: Acetaminophen 325 MG Tablet 650 MG PO (16:18)
[2020-03-02] MEDS: Atenolol 50 MG Tablet PO (20:42)
[2020-03-03] MEDS: 0.9% Normal Saline 1,000 ML 100 ML IV ×2 (00:52→11:58)
[2020-03-03 02:00] VITALS: BP 155/77; PULSE 73; RESP 18; TEMP 38.8; O2SAT 94
[2020-03-03] MEDS: Acetaminophen 325 MG Tablet 650 MG PO (02:15)
[2020-03-03 02:55] VITALS: PULSE 72
[2020-03-03 05:03] VITALS: TEMP 37.3
[2020-03-03 06:00] LABS: Absolute Lymphocyte Count 0.81 X10^3/uL (0.83-4.51); Basophil# 0.05 X10^3/uL; Basophil% 0.4 % (0-1); Eosinophil# 0.06 X10^3/uL; Eosinophils% 0.5 % (0-5); Hematocrit 40.4 % (37-47); Hemoglobin 13.1 g/dL (12.0-15.0); Lymphocyte # 0.81 X10^3/ul (4.0); Lymphocyte % 6.8 % (19-41); Mean Corp Hgb Conc 32.4 g/dL (32-36); Mean Corpuscular Hgb 30.3 pg (27.0-32.0); Mean Corpuscular Volume 93.5 fL (81-99); Mean Platelet Vol. 11.5 fl (6.2-12.0); Monocyte# 0.95 X10^3/uL; NRBC Flagged by Analyzer 0 % (0-5); Neutrophil # 9.99 X10^3/uL (2.7-7.7); Neutrophil % 83.6 % (47-70); Platelet Count 145 K/mm3 (150-450); RBC Distribution Width CV 13.9 % (11.6-14.6); RBC Distribution Width SD 48.4 fl (35.1-43.9); Red Blood Count 4.32 M/mm3 (4.2-5.4); White Blood Count 11.9 K/mm3 (4.4-11.0)
--- NOTE | 2020-03-03 06:12 | NURSING ---
03/03 0530 Pt's IV infiltrated and this RN and another RN attempted reinsertion x2 with no success. Will ask another RN to try and if no success will notify .
[2020-03-03 06:53] VITALS: PULSE 67
[2020-03-03 07:56] VITALS: BP 160/71; PULSE 72; RESP 18; TEMP 36.9; O2SAT 97
[2020-03-03] MEDS: Enoxaparin 40 MG/0.4 ML Syringe SC (08:02)
[2020-03-03] MEDS: Ascorbic Acid 500 MG Tablet PO (08:02)
[2020-03-03] MEDS: Famotidine 20 MG Tablet PO (08:02)
[2020-03-03] MEDS: Pregabalin 50 MG Capsule PO (08:02)
--- NOTE | 2020-03-03 08:14 | PCM.PN.HOSP ---
Vitals/I&O's: Vital Signs Temp Pulse Resp BP Pulse Ox 98.4 F 72 18 160/71 H 97 03/03/20 07:56 03/03/20 07:56 03/03/20 07:56 03/03/20 07:56 03/03/20 07:56 Oxygen Flow Rate (L/min) 2 Oxygen Delivery Method Room Air Weight: 255 lb 9.592 oz Body Mass Index (BMI) 46.7 Intake and Output for Last 24 Hours 03/01/20 03/02/20 03/03/20 23:59 23:59 23:59 Intake Total 1165 / 1165 3280 / 3280 1390.00 / 1390.00 Output Total 2300 / 2300 1000 / 1000 Balance 1165 / 1165 980 / 980 390.00 / 390.00 Microbiology Past 72 Hours 03/01/20 16:30 Urine, Clean Catch Urine Culture - Final Proteus mirabilis 03/01/20 16:25 Blood Culture (Wb) - Anticubital Right Blood Culture - Preliminary 03/01/20 16:10 Blood Culture (Wb) - Right Forearm Blood Culture - Preliminary 03/01/20 16:00 Mucosa - Nose SARS-CoV-2 Antigen (Rapid) - Final Laboratory Results 03/03/20 05:07: WBC 11.9 H, RBC 4.32, Hgb 13.1, Hct 40.4, MCV 93.5, MCH 30.3, MCHC 32.4, RDW Std Deviation 48.4 H, RDW Coeff of Luis Felipe 13.9, Plt Count 145 L, MPV 11.5, Immature Gran % (Auto) 0.700, Neut % (Auto) 83.6 H, Lymph % (Auto) 6.8 L, [place] % (Auto) 8.0, Eos % (Auto) 0.5, Baso % (Auto) 0.4, Absolute Neuts (auto) 10.0 H, Absolute Lymphs (auto) 0.81 L, Nucleated RBC % 0 Current Medications Acetaminophen (Acetaminophen 325 Mg Tablet) 650 mg PO Q6H PRN PRN PRN Reason: Pain Score 1-10/Temp > 100.7 F Last Admin: 03/03/20 02:15 Dose: 650 mg Documented by: Ascorbic Acid (Ascorbic Acid 500 Mg Tablet) 500 mg PO DAILY@0800 BERNY Last Admin: 03/03/20 08:02 Dose: 500 mg Documented by: Atenolol (Atenolol 50 Mg Tablet) 50 mg PO QHS [facility] Last Admin: 03/02/20 20:42 Dose: 50 mg Documented by: Enoxaparin Sodium (Enoxaparin 40 Mg/0.4 Ml Syringe) 40 mg SC DAILY [facility] Last Admin: 03/03/20 08:02 Dose: 40 mg Documented by: Famotidine (Famotidine 20 Mg Tablet) 20 mg PO DAILY [facility] Last Admin: 03/03/20 08:02 Dose: 20 mg Documented by: Sodium Chloride () 250 mls @ 15 mls/hr IV .[id number] PRN PRN Reason: Saline Flush Sodium Chloride () 250 mls @ 15 mls/hr IV .[id number] PRN PRN Reason: Additional IVPB Infusion Sodium Chloride () 1,000 mls @ 100 mls/hr IV .Q10H [facility] Last Infusion: 03/03/20 07:00 Dose: 100 mls/hr Documented by: Ceftriaxone Sodium 2 gm/ (Sodium Chloride) 50 mls @ 100 mls/hr IV Q24 [facility] Last Admin: 03/03/20 08:02 Dose: 100 mls/hr Documented by: Melatonin (Melatonin 3 Mg Tablet) 3 mg PO QHS PRN PRN PRN Reason: INSOMNIA Ondansetron HCl (Ondansetron 4 Mg/2 Ml Vial) 4 mg IV Q8H PRN PRN PRN Reason: NAUSEA/VOMITING Pregabalin (Pregabalin 50 Mg Capsule) 50 mg PO BID [facility] Last Admin: 03/03/20 08:02 Dose: 50 mg Documented by: Sodium Chloride (0.9% Saline Lock 10 Ml Syringe) 10 - 40 ml IV UD PRN PRN Reason: SALINE FLUSH STROKE Vital Signs/Narrative: Vital Signs Temp Pulse Resp BP Pulse Ox 03/03/20 07:56 98.4 F 72 18 160/71 H 97 03/03/20 06:53 67 03/03/20 05:03 99.1 F Medical Necessity - Tobacco Use Smoking Status: Never smoker Assessment/Plan 1. severe sepsis: POA 2/2 supportive mgmt 2. Acute pyelonephritis CTX follow up cultures 3. VTE prophylaxis: LMWH
--- NOTE | 2020-03-03 11:38 | DCINST_ITS ---
You will use the following diet at home:: Cardiac Your food should be the consistency of: Regular Discharge Activity: Return to Normal Activity, May Not Drive - For 1 week Call your doctor if you observe: Fever of 101 or Higher, Coldness, Increased Pain, Numbness or Tingling, Change in Color, Inability to urinate, Using more than one pad per hour, Shortness of breath, Dizziness, Fainting spells, Swelling in the ankles, Chest pain, Prolonged hiccoughing, Increased palpitations (irreg ular heartbeat), Calf discomfort, Uncontrolled pain Allergies/Adverse Reactions: Allergies Sulfa (Sulfonamide Antibiotics) Allergy (Verified 03/01/20 15:30) Rash Medications to take at Discharge Acetaminophen [Tylenol Arthritis] 500 mg PO BID 02/26/15 Ascorbic Acid [Vitamin C] 500 mg PO DAILY@0800 02/26/15 Atenolol [Tenormin (beta los)] 50 mg PO QHS 02/26/15 Cetirizine HCl [Allergy Relief] 25 mg PO DAILY 02/26/15 Cholecalciferol (Vitamin D3) [Vitamin D3] 5,000 unit PO DAILY 02/26/15 Cyanocobalamin (Vitamin B-12) [Vitamin B-12] 1,000 mcg PO DAILY 02/26/15 Gluc Carbone/[place]ro [place] A/Vit C/Mn [Glucosamine 1,500 Complex Cp] 1 each PO BID 02/26/15 Multivitamins,Therapeutic [Multivitamin] 1 tablet PO DAILY 02/26/15 Pregabalin [Lyrica] 50 mg PO BID 02/26/15 Ranitidine [Zantac] 150 mg PO DAILY 02/26/15 Solifenacin Succinate [Vesicare] 10 mg PO DAILY 02/26/15 Amlodipine Besylate/Valsartan [Amlodipine-Valsartan 5-160 mg] 1 ea PO DAILY #30 tab 03/03/20 Ciprofloxacin [Cipro] 500 mg PO BID #14 tab 03/03/20 The following prescriptions were given: Amlodipine Besylate/Valsartan [Amlodipine-Valsartan 5-160 mg] 1 ea PO DAILY #30 tab Transmission Status: Received by [id number] Ciprofloxacin [Cipro] 500 mg PO BID #14 tab Transmission Status: Received by [id number] Primary Care Physician: Brendon Gonzalez MD [Primary Care Provider] - Please follow up with your Primary Care Physician in: In 1-2 weeks Test Results: Test results from this visit will be discussed in further detail at your follow- up appointment, if applicable. Please Follow Up With: Fara Randle MD When: In 2 weeks
[2020-03-03] MEDS: Tolterodine Tartrate 4 MG CAP.SA PO (11:59)
[2020-03-03] MEDS: amLODIPine 5 MG Tablet PO (11:59)
--- NOTE | 2020-03-03 12:19 | PCM.CONS.GEN ---
Problem List (1) Pyelonephritis Status: Acute (2) Hydroureter Status: Acute Reason for Consult Date of Consultation: 03/03/20 Reason for Consultation: hydroureter History of Present Illness: The patient is a 74 year old F [admitted with left-sided pyelonephritis. She was determined to have left hydroureter on CT scan evaluation. She has a remote history of urolithiasis approximately 50 years ago. She denies hematuria. Her last urinary tract infection prior to this was approximately 10 years ago. Currently she is feeling much improved. She will be discharged today.] Past Medical History Allergies Sulfa (Sulfonamide Antibiotics) Allergy (Verified 03/01/20 15:30) Rash Home Medications: Ambulatory Orders Medication Instructions Recorded Acetaminophen [Tylenol Arthritis] 500 mg PO BID 02/26/15 Ascorbic Acid [Vitamin C] 500 mg PO DAILY@0800 02/26/15 Atenolol [Tenormin (beta los)] 50 mg PO QHS 02/26/15 Cetirizine HCl [Allergy Relief] 25 mg PO DAILY 02/26/15 Cholecalciferol (Vitamin D3) 5,000 unit PO DAILY 02/26/15 [Vitamin D3] Cyanocobalamin (Vitamin B-12) 1,000 mcg PO DAILY 02/26/15 [Vitamin B-12] Gluc Carbone/Chondro Carbone A/Vit C/Mn 1 each PO BID 02/26/15 [Glucosamine 1,500 Complex Cp] Multivitamins,Therapeutic 1 tablet PO DAILY 02/26/15 [Multivitamin] Pregabalin [Lyrica] 50 mg PO BID 02/26/15 Ranitidine [Zantac] 150 mg PO DAILY 02/26/15 Solifenacin Succinate [Vesicare] 10 mg PO DAILY 02/26/15 Amlodipine Besylate/Valsartan 1 ea PO DAILY #30 tab 03/03/20 [Amlodipine-Valsartan 5-160 mg] Ciprofloxacin [Cipro] 500 mg PO BID #14 tab 03/03/20 Surgical History: arthroscopy, knee, hysterectomy Smoking Status: Never smoker Alcohol: None Drugs: None - *Family History Maternal History Items: Heart Disease Paternal History Items: Heart Disease Review of Systems Constitutional: Denies: Anorexia, Chills, Fever Eyes: Denies: Vision Change HEENT: Denies: Visual Changes Cardiovascular: Denies: Chest Pain Respiratory: Denies: Shortness of Breath Gastrointestinal: Denies: Abdominal Pain, Nausea, Vomiting Genitourinary: Reports: Frequency, Urgency. Denies: Retention Skin: Denies: Wounds Neurological: Denies: Difficulty swallowing Objective: Is sitting up in bedside chair eating lunch without difficulty - Physical Exam Vitals/I&O's: Vital Signs Temp Pulse Resp BP Pulse Ox 98.4 F 72 18 160/71 H 97 03/03/20 07:56 03/03/20 07:56 03/03/20 07:56 03/03/20 07:56 03/03/20 07:56 Oxygen Flow Rate (L/min) 2 Oxygen Delivery Method Room Air Weight: 115.938 kg Body Mass Index (BMI) 46.7 Intake and Output for Last 24 Hours 03/01/20 03/02/20 03/03/20 23:59 23:59 23:59 Intake Total 1165 / 1165 3280 / 3280 2296.67 / 2296.67 Output Total 2300 / 2300 1800 / 1800 Balance 1165 / 1165 980 / 980 496.67 / 496.67 General: Alert, Oriented x3, Cooperative, No apparent distress HEENT: Atraumatic, Normocephalic Oral: Moist Mucosa Neck: Trachea Midline Lungs: Normal air movement Cardiovascular: Regular rate Abdomen: Soft Skin: No rashes Musculoskeletal: No Muscle Wasting Neurological: Cranial nerves II-XII grossly intact Psych/Mental Status: Normal Affect, Appropriate Microbiology Past 72 Hours 03/01/20 16:30 Urine, Clean Catch Urine Culture - Final Proteus mirabilis 03/01/20 16:25 Blood Culture (Wb) - Anticubital Right Blood Culture - Preliminary 03/01/20 16:10 Blood Culture (Wb) - Right Forearm Blood Culture - Preliminary 03/01/20 16:00 Mucosa - Nose SARS-CoV-2 Antigen (Rapid) - Final Laboratory Results 03/03/20 05:07: WBC 11.9 H, RBC 4.32, Hgb 13.1, Hct 40.4, MCV 93.5, MCH 30.3, MCHC 32.4, RDW Std Deviation 48.4 H, RDW Coeff of Luis Felipe 13.9, Plt Count 145 L, MPV 11.5, Immature Gran % (Auto) 0.700, Neut % (Auto) 83.6 H, Lymph % (Auto) 6.8 L, [place] % (Auto) 8.0, Eos % (Auto) 0.5, Baso % (Auto) 0.4, Absolute Neuts (auto) 10.0 H, Absolute Lymphs (auto) 0.81 L, Nucleated RBC % 0 03/03/20 05:07: Sodium Pending, Potassium Pending, Chloride Pending, Carbon Dioxide Pending, Anion Gap Pending, BUN Pending, Creatinine Pending, Est GFR (MDRD) Af Amer Pending, Est GFR (MDRD) Non-Af Pending, BUN/Creatinine Ratio Pending, Glucose Pending, Calcium Pending Current Medications Acetaminophen (Acetaminophen 325 Mg Tablet) 650 mg PO Q6H PRN PRN PRN Reason: Pain Score 1-10/Temp > 100.7 F Last Admin: 03/03/20 02:15 Dose: 650 mg Documented by: Amlodipine Besylate (Amlodipine 5 Mg Tablet) 5 mg PO DAILY [facility] Last Admin: 03/03/20 11:59 Dose: 5 mg Documented by: Ascorbic Acid (Ascorbic Acid 500 Mg Tablet) 500 mg PO DAILY@0800 [facility] Last Admin: 03/03/20 08:02 Dose: 500 mg Documented by: Atenolol (Atenolol 50 Mg Tablet) 50 mg PO QHS [facility] Last Admin: 03/02/20 20:42 Dose: 50 mg Documented by: Enoxaparin Sodium (Enoxaparin 40 Mg/0.4 Ml Syringe) 40 mg SC DAILY [facility] Last Admin: 03/03/20 08:02 Dose: 40 mg Documented by: Famotidine (Famotidine 20 Mg Tablet) 20 mg PO DAILY [facility] Last Admin: 03/03/20 08:02 Dose: 20 mg Documented by: Sodium Chloride () 250 mls @ 15 mls/hr IV .[id number] PRN PRN Reason: Saline Flush Sodium Chloride () 250 mls @ 15 mls/hr IV .[id number] PRN PRN Reason: Additional IVPB Infusion Sodium Chloride () 1,000 mls @ 100 mls/hr IV .Q10H [facility] Last Admin: 03/03/20 11:58 Dose: 100 mls/hr Documented by: Ceftriaxone Sodium 2 gm/ (Sodium Chloride) 50 mls @ 100 mls/hr IV Q24 [facility] Last Infusion: 03/03/20 08:39 Dose: Infused Documented by: Melatonin (Melatonin 3 Mg Tablet) 3 mg PO QHS PRN PRN PRN Reason: INSOMNIA Multivitamins (Multivitamins,Therapeutic Tablet) 1 tablet PO DAILYCM [facility] Ondansetron HCl (Ondansetron 4 Mg/2 Ml Vial) 4 mg IV Q8H PRN PRN PRN Reason: NAUSEA/VOMITING Pregabalin (Pregabalin 50 Mg Capsule) 50 mg PO BID [facility] Last Admin: 03/03/20 08:02 Dose: 50 mg Documented by: Sodium Chloride (0.9% Saline Lock 10 Ml Syringe) 10 - 40 ml IV UD PRN PRN Reason: SALINE FLUSH Tolterodine Tartrate (Tolterodine Tartrate 4 Mg Cap.Sa) 4 mg PO DAILY [facility] Last Admin: 03/03/20 11:59 Dose: 4 mg Documented by: Valsartan (Valsartan 160 Mg Tablet) 160 mg PO DAILY [facility] Last Admin: 03/03/20 11:59 Dose: 160 mg Documented by: Assessment/Plan All Active Problems Pyelonephritis (Acute) Hydroureter (Acute) CT scan reveals mild left hydroureter with perinephric stranding and no evidence of urolithiasis. I feel comfortable that this is secondary to her Proteus urinary tract infection. The patient is clinically improved and meets criteria for discharge home today. She will follow-up with me in the office for repeat imaging and further evaluation with bladder scan etc. She knows she is to call for an appointment.
[2020-03-03 12:34] LABS: Anion Gap 6 (5-15); BUN 11 mg/dL (7-18); BUN/Creat Ratio 11.8 RATIO (10-20); Calcium,Total 8.4 mg/dL (8.5-10.1); Chloride 111 mmol/L (98-107); Creatinine, Serum 0.94 mg/dL (0.55-1.02); EST Glomerular Filtration Rate 62 mL/min (>60); Est Glom Filt Rate - Afr Amer 75 mL/min (>60); Estimated Creatinine Clearance 42.16 ml/min; Glucose 119 mg/dL (74-106); Potassium 3.4 mmol/L (3.5-5.1); Sodium Level 139 mmol/L (136-145)
--- NOTE | 2020-03-03 12:34 | NURSING ---
RN CM Assessment Introduced role of RN CM to patient.? Patient is alert, oriented and able?to participate in RN CM Assessment. ?Care providers, pharmacy, and demographics verified. Admit Dx: Sepsis, Pyelonephritis Re-Admit: No Barriers/Issues: None PCP: Elijah Gonzalez Specialists: Pain- [facility]- Cari Preferred Pharmacy: [facility] Uses mail order [facility] for maintenance medications. Insurance: [facility] Rx Benefit:?Yes ?LNOK: Jai Luna LW/HPOA: States has both completed. 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 Primary HPOA sports [facility] Living Arrangements:? Lives with her in a [facility], 2 steps to enter home and ,1 step inside home to enter family area. 29yo grandson lives in basement. Granddaughter and her live on property in a mother in law suite. ADL?s: Independent with ambulation and ADLs Transportation: Both patient and her drive. will pick patient up upon DC DME: Several walkers, several BSC, TSR, WC, CPAP HHC: None SNF: None Goal: Home and does not anticipate any needs. Denies any issues or concerns with DC planning at this time. Aware RNCM remains available should any emerging needs arise. DC PLAN: Home with no anticipated needs identified at this time. DELMA Ortiz
--- NOTE | 2020-03-03 13:26 | DS.PCM_ITS ---
Discharge Date and Diagnosis - Problem List Patient Problems: Active and Suspected Problems Pyelonephritis (Acute) Hydroureter (Acute) Date of Admission: 03/01/20 Date of Discharge: 03/03/20 - Primary Discharge Diagnosis Acute Problems: Acute left pyelonephritis and gram-negative edmar bacteremia due to Proteus mirabilis Hospital Course and Treatment Summary of Care Provided: The patient is a 74 year old F with history of hypertension and kidney stone in her 20s. Back pain and dysuria with fever. CT abdomen shows showed left perinephric stranding and mild left hydroureter but no hydronephrosis consistent with a left pyelonephritis with gram-negative edmar bacteremia most likely due to Proteus mirabilis. No urinary tract calcification. Her last UTI was about 10 years ago. [] 1. severe sepsis due to left pyelonephritis and gram-negative edmar bacteremia due to Proteus mirabilis, present on admission: UA shows WBC 5200 cells with nitrite negative but LE positive. Urine culture shows 80,000- 100,000 Proteus mirabilis. Blood cultures x2 preliminary shows gram-negative rods in both aerobic and anaerobic bottles. Initially patient started on IV ceftriaxone [address] Randle was consulted and she saw the patient. She agreed with the discharge and follow-up in my office for repeat CT scan and further urology evaluation. Mild hypokalemia, K3.4. 1 dose of K. Dur 40 M EQ given. Patient is discharged on 7 more days of Cipro 500 mg twice daily based on urine culture report. 2. Hypertension with CKD stage III most probably hypertensive nephropathy: Patient blood pressure was low due to severe sepsis but got elevated today. Patient started back on amlodipine?valsartan 5-160 mg daily and sent home on this dose. Previously patient was on amlodipine valsartan 5 320 mg daily. Patient BUN/creatinine improved. 3. Morbid obesity: Patient BMI is 46.7. Weight loss counseling done. Discharge medication reconciliation done. Discharge follow-up instructions completed. Discharge process discussed with the patient and all questions were answered to patient's satisfaction. Patient's prescription sent to the patient's pharmacy, [facility]. Total time spent, exact 35 minutes on discharge meds reconciliation, examination, coordination of care with nurses and ancillary staff, review of imaging and blood test and discussion with the patient on follow-up instructions Microbiology Past 72 Hours 03/01/20 16:30 Urine, Clean Catch Urine Culture - Final Proteus mirabilis 03/01/20 16:25 Blood Culture (Wb) - Anticubital Right Blood Culture - Preliminary 03/01/20 16:10 Blood Culture (Wb) - Right Forearm Blood Culture - Preliminary 03/01/20 16:00 Mucosa - Nose SARS-CoV-2 Antigen (Rapid) - Final Laboratory Results 03/03/20 05:07: WBC 11.9 H, RBC 4.32, Hgb 13.1, Hct 40.4, MCV 93.5, MCH 30.3, MCHC 32.4, RDW Std Deviation 48.4 H, RDW Coeff of Luis Felipe 13.9, Plt Count 145 L, MPV 11.5, Immature Gran % (Auto) 0.700, Neut % (Auto) 83.6 H, Lymph % (Auto) 6.8 L, [place] % (Auto) 8.0, Eos % (Auto) 0.5, Baso % (Auto) 0.4, Absolute Neuts (auto) 10.0 H, Absolute Lymphs (auto) 0.81 L, Nucleated RBC % 0 Clinical Impression(s) from Imaging Studies Chest X-Ray 03/01/20 16:35 IMPRESSION: Nonacute portable x-ray examination of the chest. Abdomen/Pelvis CT 03/01/20 16:41 IMPRESSION: 1. Left perinephric stranding and mild left hydroureter (no hydronephrosis). No urinary tract calcifications. May represent recently passed calculus or urinary tract infection, however, a distal ureteral obstruction cannot be entirely excluded. Patient Problems: Active and Suspected Problems Pyelonephritis (Acute) Hydroureter (Acute) Objective: Seen and examined. Patient is afebrile. Denies any abdominal pain or renal angle pain. Mild burning micturition but much better than before Fever was 101.2, 101.8 Fahrenheit last night. Afebrile in the morning. Blood cultures aerobic and anaerobic x2 on 03/01 shows gram-negative rods. Physical exam General: Alert, Oriented x3, Cooperative HEENT: Atraumatic, PERRLA, EOMI, Normocephalic Oral: No Gingival or Mucosal Lesions/ Ulcerations Neck: Supple, No JVD, Negative Carotid Bruits Lungs: Air entry diminished in bilateral lung bases. No crepitation/rhonchi Cardiovascular: Regular rate, Regular Rhythm, Normal S1, Normal S2, No murmurs Abdomen: Bowel Sounds Present, Soft, Non Tender, Non-Distended : No renal angle tenderness. No suprapubic tenderness. Urine is clear. Extremities: No edema, Capillary Refill Less than 3 Seconds Skin: No rashes, No breakdown Musculoskeletal: No Tenderness to Palpation of Joints or Extremities Neurological: Cranial nerves II-XII grossly intact, Deep Tendon Reflexes 2+/4 and Symmetrical, Neuro grossly intact Psych/Mental Status: Normal Affect, Appropriate. - Physical Exam Vitals/I&O's: Vital Signs Temp Pulse Resp BP Pulse Ox 98.4 F 72 18 160/71 H 97 03/03/20 07:56 03/03/20 07:56 03/03/20 07:56 03/03/20 07:56 03/03/20 07:56 Oxygen Flow Rate (L/min) 2 Oxygen Delivery Method Room Air Weight: 255 lb 9.592 oz Body Mass Index (BMI) 46.7 Intake and Output for Last 24 Hours 03/01/20 03/02/20 03/03/20 23:59 23:59 23:59 Intake Total 1165 / 1165 3280 / 3280 1440.00 / 1440.00 Output Total 2300 / 2300 1000 / 1000 Balance 1165 / 1165 980 / 980 440.00 / 440.00 Microbiology Past 72 Hours 03/01/20 16:30 Urine, Clean Catch Urine Culture - Final Proteus mirabilis 03/01/20 16:25 Blood Culture (Wb) - Anticubital Right Blood Culture - Preliminary 03/01/20 16:10 Blood Culture (Wb) - Right Forearm Blood Culture - Preliminary 03/01/20 16:00 Mucosa - Nose SARS-CoV-2 Antigen (Rapid) - Final Laboratory Results 03/03/20 05:07: WBC 11.9 H, RBC 4.32, Hgb 13.1, Hct 40.4, MCV 93.5, MCH 30.3, MCHC 32.4, RDW Std Deviation 48.4 H, RDW Coeff of Luis Feilpe 13.9, Plt Count 145 L, MPV 11.5, Immature Gran % (Auto) 0.700, Neut % (Auto) 83.6 H, Lymph % (Auto) 6.8 L, [place] % (Auto) 8.0, Eos % (Auto) 0.5, Baso % (Auto) 0.4, Absolute Neuts (auto) 10.0 H, Absolute Lymphs (auto) 0.81 L, Nucleated RBC % 0 Current Medications Acetaminophen (Acetaminophen 325 Mg Tablet) 650 mg PO Q6H PRN PRN PRN Reason: Pain Score 1-10/Temp > 100.7 F Last Admin: 03/03/20 02:15 Dose: 650 mg Documented by: Amlodipine Besylate (Amlodipine 5 Mg Tablet) 5 mg PO DAILY [facility] Ascorbic Acid (Ascorbic Acid 500 Mg Tablet) 500 mg PO DAILY@0800 [facility] Last Admin: 03/03/20 08:02 Dose: 500 mg Documented by: Atenolol (Atenolol 50 Mg Tablet) 50 mg PO QHS [facility] Last Admin: 03/02/20 20:42 Dose: 50 mg Documented by: Enoxaparin Sodium (Enoxaparin 40 Mg/0.4 Ml Syringe) 40 mg SC DAILY [facility] Last Admin: 03/03/20 08:02 Dose: 40 mg Documented by: Famotidine (Famotidine 20 Mg Tablet) 20 mg PO DAILY [facility] Last Admin: 03/03/20 08:02 Dose: 20 mg Documented by: Sodium Chloride () 250 mls @ 15 mls/hr IV .[id number] PRN PRN Reason: Saline Flush Sodium Chloride () 250 mls @ 15 mls/hr IV .[id number] PRN PRN Reason: Additional IVPB Infusion Sodium Chloride () 1,000 mls @ 100 mls/hr IV .Q10H [facility] Last Infusion: 03/03/20 07:00 Dose: 100 mls/hr Documented by: Ceftriaxone Sodium 2 gm/ (Sodium Chloride) 50 mls @ 100 mls/hr IV Q24 [facility] Last Infusion: 03/03/20 08:39 Dose: Infused Documented by: Melatonin (Melatonin 3 Mg Tablet) 3 mg PO QHS PRN PRN PRN Reason: INSOMNIA Multivitamins ([facility]it[facility],Therapeutic Tablet) [facility] Ondansetron HCl (Ondansetron 4 Mg/2 Ml Vial) 4 mg IV Q8H PRN PRN PRN Reason: NAUSEA/VOMITING Pregabalin (Pregabalin 50 Mg Capsule) 50 mg PO BID [facility] Last Admin: 03/03/20 08:02 Dose: 50 mg Documented by: Sodium Chloride (0.9% Saline Lock 10 Ml Syringe) 10 - 40 ml IV UD PRN PRN Reason: SALINE FLUSH Tolterodine Tartrate (Tolterodine Tartrate 4 Mg Cap.Sa) 4 mg PO DAILY [facility] Valsartan (Valsartan 160 Mg Tablet) 160 mg PO DAILY [facility] Discharge Activity: Return to Normal Activity, May Not Drive - For 1 week Call your doctor if you observe: Fever of 101 or Higher, Coldness, Increased Pain, Numbness or Tingling, Change in Color, Inability to urinate, Using more than one pad per hour, Shortness of breath, Dizziness, Fainting spells, Swelling in the ankles, Chest pain, Prolonged hiccoughing, Increased palpitations (irregular heartbeat), Calf discomfort, Uncontrolled pain Home Medications: Medications to take at Discharge Acetaminophen [Tylenol Arthritis] 500 mg PO BID 02/26/15 Ascorbic Acid [Vitamin C] 500 mg PO DAILY@0800 02/26/15 Atenolol [Tenormin (beta los)] 50 mg PO QHS 02/26/15 Cetirizine HCl [Allergy Relief] 25 mg PO DAILY 02/26/15 Cholecalciferol (Vitamin D3) [Vitamin D3] 5,000 unit PO DAILY 02/26/15 Cyanocobalamin (Vitamin B-12) [Vitamin B-12] 1,000 mcg PO DAILY 02/26/15 Gluc Carbone/Chondro Carbone A/Vit C/Mn [Glucosamine 1,500 Complex Cp] 1 each PO BID 02/26/15 Multivitamins,Therapeutic [Multivitamin] 1 tablet PO DAILY 02/26/15 Pregabalin [Lyrica] 50 mg PO BID 02/26/15 Ranitidine [Zantac] 150 mg PO DAILY 02/26/15 Solifenacin Succinate [Vesicare] 10 mg PO DAILY 02/26/15 Amlodipine Besylate/Valsartan [Amlodipine-Valsartan 5-160 mg] 1 ea PO DAILY #30 tab 03/03/20 Ciprofloxacin [Cipro] 500 mg PO BID #14 tab 03/03/20 Following Prescriptions Were Given to Patient: Amlodipine Besylate/Valsartan [Amlodipine-Valsartan 5-160 mg] 1 ea PO DAILY #30 tab Transmission Status: [id number] Ciprofloxacin [Cipro] 500 mg PO BID #14 tab Transmission Status: Received by [facility] Primary Care Physician: Brendon Gonzalez MD [Primary Care Provider] - Please follow up with your Primary Care Physician in: In 1-2 weeks Please Follow Up With: Fara Randle MD When: In 2 weeks Medical Necessity - Tobacco Use Smoking Status: Never smoker Meaningful Use Info Meaningful Use Diagnoses (Choose all that apply): None applicable Inpatient E&M: 97264 Disch Hosp
[2020-03-03 13:30] VITALS: BP 148/69; PULSE 73; RESP 18; TEMP 37.2; O2SAT 96
--- NOTE | 2020-03-03 14:13 | PHA.DC.MC ---
Pharmacy Service has performed discharge medication reconciliation and counseling for this patient. 1. CIPROFLOXACIN 500MG PO BID 2. AMLODIPINE/VALSARTAN 5/160MG PO DAILY The patient's discharge medication list was reviewed for discrepancies and discrepancies were resolved. Home Medications Acetaminophen [Tylenol Arthritis] 500 mg PO BID 02/26/15 Ascorbic Acid [Vitamin C] 500 mg PO DAILY@0800 02/26/15 Atenolol [Tenormin (beta los)] 50 mg PO QHS 02/26/15 Cetirizine HCl [Allergy Relief] 25 mg PO DAILY 02/26/15 Cholecalciferol (Vitamin D3) [Vitamin D3] 5,000 unit PO DAILY 02/26/15 Cyanocobalamin (Vitamin B-12) [Vitamin B-12] 1,000 mcg PO DAILY 02/26/15 Gluc Carbone/Chondro Carbone A/Vit C/Mn [Glucosamine 1,500 Complex Cp] 1 each PO BID 02/26/15 Multivitamins,Therapeutic [Multivitamin] 1 tablet PO DAILY 02/26/15 Pregabalin [Lyrica] 50 mg PO BID 02/26/15 Ranitidine [Zantac] 150 mg PO DAILY 02/26/15 Solifenacin Succinate [Vesicare] 10 mg PO DAILY 02/26/15 Amlodipine Besylate/Valsartan [Amlodipine-Valsartan 5-160 mg] 1 ea PO DAILY #30 tab 03/03/20 Ciprofloxacin [Cipro] 500 mg PO BID #14 tab 03/03/20 The patient was counseled on the following discharge medications and changes in medications for homegoing were reviewed. The Reason for Use, instructions for use, and potential side effects were reviewed for all new medications. The patient's questions regarding all of their medications were answered. The patient was able to verbally demonstrate an understanding of their discharge medications.
--- NOTE | 2020-03-04 15:18 | CASEMGMT ---
RENATO CORDOBA DC PHONE CALL DC DATE: 03/03/2020 DC DISPOSITION: Home DC DIAGNOSIS: pyelonephritis, hydroureter Intro role of CM to patient via phone. Pt is feeling improved. She did have questions re: her BP medication and was not sure about the dosing that was ordered on dc. In reviewing notes, the doseage was same as physician wrote in his note. RENATO CORDOBA recommended pt call dr office and review her previous medication and the new medication with him. She has an appt on . Pt also states she has a dry nagging cough for months. RENATO CORDOBA also recommended she review this with her dr as some medications can cause a dry cough. Pt will do this also. Otherwise no further questions or concerns. No care improvement suggestions were given. The patient states she was well taken care of in the hospital. Jeni MADRID RN ACM
== END 2020-03-03 14:15 | disposition home or self-care (01) | DRG 872 ==
LOC: ED 17:46 → PCU 19:42
PROVIDERS: Admitting Provider Family Medicine; Emergency Provider Emergency Medicine; PCP Family Medicine; Visit Provider Internal Medicine
DX: A41.9 Sepsis, unspecified organism (principal); N13.6 Pyonephrosis; Z68.42 Body mass index [BMI] 45.0-49.9, adult; K21.9 Gastro-esophageal reflux disease without esophagitis; R65.20 Severe sepsis without septic shock; B96.89 Other specified bacterial agents as the cause of diseases classified elsewhere; Z87.442 Personal history of urinary calculi; B96.4 Proteus (mirabilis) (morganii) as the cause of diseases classified elsewhere; E87.6 Hypokalemia; I12.9 Hypertensive chronic kidney disease with stage 1 through stage 4 chronic kidney disease, or unspecified chronic kidney disease; N18.30 Chronic kidney disease, stage 3 unspecified; E66.01 Morbid (severe) obesity due to excess calories; Z90.710 Acquired absence of both cervix and uterus
CPT/HCPCS: 36415; 71045; 74176; 80048; 80053; 81001; 83605; 85025; 85610; 85730; 87040; 87077; 87086; 87088; 87186; 87426; 99285; J7030; J0696

== ENCOUNTER → 2020-03-25 12:16 | Outpatient (CLI) | payer MEDICARE, SELFPAY ==
[2020-03-01 18:33] VITALS: BMI 46.7
--- NOTE | 2020-03-25 12:18 | US_ITS ---
STUDY: RENAL ULTRASOUND - COMPLETE REASON FOR EXAM: Female, 74 years old. UTI -- HYDRONEPHROSIS TECHNIQUE: Ultrasound evaluation of the kidneys was performed with real-time and static larry-scale imaging. COMPARISON: None. FINDINGS: RIGHT KIDNEY: Normal location of the right kidney, which is normal in size. The right kidney measures 9.5 x 4.2 x 4.6 cm. There is a normal cortex of the right kidney. The renal cortex measures 0.9 cm. There is no right renal mass or cyst. There are no right renal calculi. There is no right hydronephrosis. DISTAL RIGHT URETER: There is non-visualization of the distal right ureter. There is no demonstrated right ureterovesical junction calculus. There is a visualized right ureteral jet. LEFT KIDNEY: Normal location of the left kidney, which is normal in size. The left kidney measures 9.9 x 4.5 x 5.3 cm. There is a normal cortex of the left kidney. The renal cortex measures 1.2 cm. There is no left renal mass or cyst. There are no left renal calculi. There is mild left hydronephrosis. DISTAL LEFT URETER: There is non-visualization of the distal left ureter. There is no demonstrated left ureterovesical junction calculus. There is a visualized left ureteral jet. BLADDER: The distended urinary bladder has a volume of 233 ml. There is a normal wall thickness of the distended urinary bladder. There is no demonstrated mass within the urinary bladder. There are no demonstrated bladder calculi. Right hepatic cyst is noted measuring 4.1 cm. US/Kidney and Bladder IMPRESSION: Mild left hydronephrosis. Right hepatic cyst. Electronically Signed: Helder Strange DO at 23:38 EST Tel [phone], Service support ,
== END ==
PROVIDERS: PCP Family Medicine; Referring Provider Urology; Visit Provider Urology
DX: N39.0 Urinary tract infection, site not specified (principal); N13.30 Unspecified hydronephrosis
CPT/HCPCS: 76770

== ENCOUNTER → 2020-04-01 13:37 | Outpatient (CLI) | payer MEDICARE, SELFPAY ==
[2020-03-01 18:33] VITALS: BMI 46.7
[2020-04-01 15:02] LABS: Hematocrit 44.1 % (37-47); Hemoglobin 14.2 g/dL (12.0-15.0); Mean Corp Hgb Conc 32.2 g/dL (32-36); Mean Corpuscular Hgb 30.8 pg (27.0-32.0); Mean Corpuscular Volume 95.7 fL (81-99); Mean Platelet Vol. 11.7 fl (6.2-12.0); Platelet Count 220 K/mm3 (150-450); RBC Distribution Width CV 13.9 % (11.6-14.6); RBC Distribution Width SD 48.5 fl (35.1-43.9); Red Blood Count 4.61 M/mm3 (4.2-5.4); White Blood Count 6.8 K/mm3 (4.4-11.0)
[2020-04-01 15:17] LABS: Anion Gap 5 (5-15); BUN 15 mg/dL (7-18); BUN/Creat Ratio 12.9 RATIO (10-20); Calcium,Total 9.2 mg/dL (8.5-10.1); Chloride 107 mmol/L (98-107); Creatinine, Serum 1.16 mg/dL (0.55-1.02); EST Glomerular Filtration Rate 49 mL/min (>60); Est Glom Filt Rate - Afr Amer 59 mL/min (>60); Glucose 126 mg/dL (74-106); Sodium Level 140 mmol/L (136-145)
== END ==
PROVIDERS: PCP Family Medicine; Referring Provider Urology; Visit Provider Urology
DX: N10 Acute pyelonephritis (principal); N13.39 Other hydronephrosis
CPT/HCPCS: 36415; 80048; 85027

== ENCOUNTER → 2020-07-07 09:31 | Outpatient (CLI) | payer MEDICARE, SELFPAY ==
[2020-03-01 18:33] VITALS: BMI 46.7
--- NOTE | 2020-07-07 09:34 | US_ITS ---
STUDY: RENAL ULTRASOUND - COMPLETE REASON FOR EXAM: Female, 75 years old. L HYDRONEPHROSIS TECHNIQUE: Ultrasound evaluation of the kidneys was performed with real-time and static larry-scale imaging. COMPARISON: None. FINDINGS: RIGHT KIDNEY: Normal location of the right kidney, which is normal in size. The right kidney measures 10 cm. There is a normal cortex of the right kidney. The renal cortex measures 1.3 cm. There is no right renal mass or cyst. There are no right renal calculi. There is no right hydronephrosis. DISTAL RIGHT URETER: There is non-visualization of the distal right ureter. There is no demonstrated right ureterovesical junction calculus. There is a visualized right ureteral jet. LEFT KIDNEY: Normal location of the left kidney, which is normal in size. The left kidney measures 9.9 cm. There is a normal cortex of the left kidney. The renal cortex measures 1.3 cm. There is no left renal mass or cyst. 3 mm nonobstructing stone in the renal pelvis. There is no left hydronephrosis. DISTAL LEFT URETER: There is non-visualization of the distal left ureter. There is no demonstrated left ureterovesical junction calculus. There is a visualized left ureteral jet. I.V.C.: The IVC is patent. BLADDER: The distended urinary bladder has a volume of 559ml. There is a normal wall thickness of the distended urinary bladder. There is no demonstrated mass within the urinary bladder. There are no demonstrated bladder calculi. There is a partially visualized 3.6 x 4 x 3.2 cm right hepatic lobe simple cyst. US/Kidney and Bladder IMPRESSION: No hydronephrosis. Nonobstructing stone in the left renal pelvis. Normal ultrasound of the urinary bladder. Electronically Signed: Camilo Quintana MD at 11:50 EDT Tel , Service support ,
== END ==
PROVIDERS: PCP Family Medicine; Referring Provider Urology; Visit Provider Urology
DX: N13.30 Unspecified hydronephrosis (principal)
CPT/HCPCS: 76770

== ENCOUNTER → 2020-08-15 13:35 | Outpatient (CLI) | payer MEDICARE, SELFPAY ==
[2020-03-01 18:33] VITALS: BMI 46.7
[2020-08-15 15:12] LABS: Absolute Lymphocyte Count 1.63 X10^3/uL (0.83-4.51); Absolute Neutrophil Count 3.7 X10^3/uL (2.0-7.7); Basophil# 0.08 X10^3/uL; Basophil% 1.3 % (0-1); Eosinophils% 3.2 % (0-5); Hematocrit 44.6 % (37-47); Hemoglobin 13.8 g/dL (12.0-15.0); Lymphocyte # 1.63 X10^3/ul (0.83-4.51); Lymphocyte % 25.8 % (19-41); Mean Corp Hgb Conc 30.9 g/dL (32-36); Mean Corpuscular Hgb 29.4 pg (27.0-32.0); Mean Corpuscular Volume 95.1 fL (81-99); Mean Platelet Vol. 11.9 fl (6.2-12.0); Monocyte# 0.69 X10^3/uL; Monocyte% 10.9 % (0-10); NRBC Flagged by Analyzer 0 % (0-5); Neutrophil % 58.5 % (47-70); Platelet Count 218 K/mm3 (150-450); RBC Distribution Width CV 13.4 % (11.6-14.6); RBC Distribution Width SD 46.9 fl (35.1-43.9); Red Blood Count 4.69 M/mm3 (4.2-5.4); White Blood Count 6.3 K/mm3 (4.4-11.0)
[2020-08-15 15:23] LABS: ALB/GLOB Ratio 0.9 RATIO (0.9-2.4); AST(SGOT) 26 U/L (15-37); Alanine Aminotransfer ALT/SGPT 31 U/L (13-56); Albumin, Serum 3.5 g/dL (3.2-5.0); Alkaline Phosphatase 114 U/L (45-117); Anion Gap 4 (5-15); BUN 23 mg/dL (7-18); BUN/Creat Ratio 19.7 RATIO (10-20); Calcium,Total 9.4 mg/dL (8.5-10.1); Chloride 105 mmol/L (98-107); Cholesterol 183 mg/dL (200); Creatinine, Serum 1.17 mg/dL (0.55-1.02); EST Glomerular Filtration Rate 48 mL/min (>60); Est Glom Filt Rate - Afr Amer 58 mL/min (>60); Globulin 3.7 g/dL (2.2-4.2); Glucose 114 mg/dL (74-106); High Density Lipoprotein 42 mg/dL; Potassium 4.7 mmol/L (3.5-5.1); Protein, Total 7.2 g/dL (6.4-8.2); Sodium Level 140 mmol/L (136-145); Triglycerides 292 mg/dL; Very Low Density Lipoprotein 58 mg/dL (5-40)
[2020-08-15 15:28] LABS: Hemoglobin A1c 5.6 % (3.8-5.6)
== END ==
PROVIDERS: PCP Family Medicine; Referring Provider Nurse Practitioner Family; Visit Provider Nurse Practitioner Family
DX: Z00.00 Encounter for general adult medical examination without abnormal findings (principal); I10 Essential (primary) hypertension
CPT/HCPCS: 36415; 80053; 80061; 83036; 85025

== ENCOUNTER → 2020-08-28 10:28 | Outpatient (CLI) | payer MEDICARE, SELFPAY ==
[2020-03-01 18:33] VITALS: BMI 46.7
--- NOTE | 2020-08-28 10:29 | BI_ITS ---
MAMMOGRAPHY - BILATERAL SCREENING REASON FOR EXAM: Female, 75 years old. Routine annual screening examination. PERTINENT HISTORY: Sisters with breast cancer. Mother with breast cancer. Prior left stereotactic biopsy and stereotactic biopsy. TECHNIQUE: Digital bilateral breast constance (3D mammographic acquisition) in the CC and MLO projections. 2-D mediolateral oblique (MLO) and craniocaudad (CC) views of both breasts were obtained. CAD: Full Field Digital Mammography with Computer Added Detection was performed. COMPARISON: Comparison is made with prior study dated 08/14/2019 and 07/25/2018. FINDINGS: Breast Composition: There are scattered areas of fibroglandular density. There are no dominant masses or suspicious calcifications. Stable 1.2 cm ovoid nodule in the deep mid right breast. No other significant abnormalities are identified. There has been no significant change since the prior study. BI/SCRN MAMM (CAD)W/CONSTANCE BILAT IMPRESSION: Stable bilateral screening mammogram. Yearly follow-up mammogram recommended. (A) ASSESSMENT CATEGORY: BIRADS Category 2: Benign. A letter regarding these results will be sent to the patient by the facility within 30 days. Approximately 10% of breast cancers are not detected by mammography. A normal mammogram should not delay biopsy of a clinically suspicious abnormality. [id number] Electronically Signed: Arron Alas MD at 11:16 EDT , Service support ,
== END ==
PROVIDERS: PCP Family Medicine; Referring Provider Nurse Practitioner Family; Visit Provider Nurse Practitioner Family
DX: Z12.31 Encounter for screening mammogram for malignant neoplasm of breast (principal); Z80.3 Family history of malignant neoplasm of breast
CPT/HCPCS: 77063; 77067

== ENCOUNTER → 2020-10-02 09:39 | Outpatient (CLI) | payer MEDICARE, SELFPAY ==
[2020-03-01 18:33] VITALS: BMI 46.7
--- NOTE | 2020-10-02 09:50 | RAD_ITS ---
STUDY: X-RAY - PELVIS AND RIGHT HIP REASON FOR EXAM: Female, 75 years old. PAIN TECHNIQUE: 3 views of the pelvis and hip. COMPARISON: AUGUST 09, 2017 FINDINGS: There is a non-specific bowel gas pattern. Normal visualized soft tissue structures. Normal bilateral iliac wings, sacroiliac joints and visualized sacrum. Normal bilateral superior and inferior pubic rami. Normal pubic symphysis. Normal bilateral ischial tuberosities. There is severe axial narrowing in the left hip and mild cortical spurring of the acetabulum. The right hip joint is moderately narrowed. No visualized fractures. Disc space narrowing partially visualized lumbar spine. RAD/HIP, UNI W/ Pelvis 2-3 Views IMPRESSION: Moderate to severe bilateral hip joint space narrowing Electronically Signed: Atilio Lam MD at 16:06 EDT , Service support ,
== END ==
PROVIDERS: PCP Family Medicine; Referring Provider Nurse Practitioner Family; Visit Provider Nurse Practitioner Family
DX: M25.551 Pain in right hip (principal)
CPT/HCPCS: 73502

== ENCOUNTER → 2021-02-12 12:17 | Outpatient (CLI) | payer MEDICARE, SELFPAY ==
--- NOTE | 2021-02-12 12:26 | RAD_ITS ---
History: PAIN Cervical spine 5 views: Findings: No fracture or subluxation. Straightening of the cervical lordosis noted consistent with muscle spasm. C5-6 and C6-7 disc space narrowing noted. Mild narrowing of C6-7 neuroforamina secondary to uncinate joint hypertrophy. Precervical soft tissues are normal. IMPRESSION:Spondylosis. No acute bone or joint abnormality. Loss of cervical lordosis. at 1608 Reported and signed by: Edgard Palomo MD Electronically Signed: Edgard Palomo MD at 16:06 EST Tel , Service support , RAD/Cerv Spine 4 or 5 Views
--- NOTE | 2021-02-12 12:26 | RAD_ITS ---
History: ABD PAIN Abdomen: Findings: AP supine and upright views of the abdomen demonstrate normal bowel gas pattern. No free air, pathologic calcification or organomegaly. Moderate right and severe left hip joint space narrowing. IMPRESSION: No acute abdominal abnormality. Significant arthritic changes of both hips worse on the left than right. at 1604 Reported and signed by: Edgard Palomo MD Electronically Signed: Edgard Palomo MD at 16:03 EST Tel , Service support , RAD/[employer] Decub and/or Erect
== END ==
PROVIDERS: PCP Family Medicine; Referring Provider Family Medicine; Visit Provider Family Medicine
DX: M54.2 Cervicalgia (principal); R10.9 Unspecified abdominal pain
CPT/HCPCS: 72050; 74018; 74019

== ENCOUNTER → 2021-02-27 11:49 | Outpatient (CLI) | payer MEDICARE, SELFPAY ==
[2021-02-27 14:46] LABS: Hematocrit 43.9 % (37-47); Hemoglobin 14.4 g/dL (12.0-15.0); Mean Corp Hgb Conc 32.8 g/dL (32-36); Mean Corpuscular Hgb 30.1 pg (27.0-32.0); Mean Corpuscular Volume 91.8 fL (81-99); Platelet Count 232 K/mm3 (150-450); RBC Distribution Width CV 13.2 % (11.6-14.6); RBC Distribution Width SD 44.7 fl (35.1-43.9); Red Blood Count 4.78 M/mm3 (4.2-5.4); White Blood Count 7.1 K/mm3 (4.4-11.0)
[2021-02-27 15:11] LABS: ALB/GLOB Ratio 0.9 RATIO (0.9-2.4); AST(SGOT) 26 U/L (15-37); Alanine Aminotransfer ALT/SGPT 25 U/L (13-56); Albumin, Serum 3.5 g/dL (3.2-5.0); Alkaline Phosphatase 107 U/L (45-117); Anion Gap 8 (5-15); BUN 19 mg/dL (7-18); BUN/Creat Ratio 15.2 RATIO (10-20); Calcium,Total 9.2 mg/dL (8.5-10.1); Chloride 106 mmol/L (98-107); Cholesterol 180 mg/dL (200); Creatinine, Serum 1.25 mg/dL (0.55-1.02); EST Glomerular Filtration Rate 44 mL/min (>60); Est Glom Filt Rate - Afr Amer 54 mL/min (>60); Globulin 4.1 g/dL (2.2-4.2); Glucose 104 mg/dL (74-106); High Density Lipoprotein 44 mg/dL; Potassium 4.1 mmol/L (3.5-5.1); Protein, Total 7.6 g/dL (6.4-8.2); Sodium Level 141 mmol/L (136-145); Thyroid Stim Hormone (TSH) 1.25 uIU/mL (0.358-3.74); Triglycerides 201 mg/dL; Very Low Density Lipoprotein 40 mg/dL (5-40)
== END ==
PROVIDERS: PCP Family Medicine; Referring Provider Family Medicine; Visit Provider Family Medicine
DX: I10 Essential (primary) hypertension (principal); R60.0 Localized edema
CPT/HCPCS: 36415; 80053; 80061; 84443; 85027

== ENCOUNTER 2021-04-02 10:30 | Outpatient (RCR) | payer MEDICARE, SELFPAY ==
--- NOTE | 2021-03-10 10:28 | HP.PTEVAL ---
Patient's Visit Information MU GARDNER is a 75 year old F referred to Physical Therapy by Dr. Osbaldo Palacio MD with a diagnosis of Left Hip OA. Date of Evaluation: 03/10/21 Physical Therapist: Cierra Kim DPT - Visit Plan Frequency: 2x /Week Duration: 4 Weeks Plan: Aquatic- focus on LE and core strength/stabilization. HEP Given IE: marching, hip abduction, HR/TR, hip extension- encouraged to incorporate throughout her day - Subjective Patient reports that she needs a left hip replacement but they won't do it until she loses some weight. She has had the right knee done (Feb 2019) and the left one also needs done. They went back in Feb 2020 to do a revision. She goes back to June 02, 2020 to hopefully set a surgery date for her hip. The hip feels like its going to lock so its hard to get up out of the chair if she sits to long. Worst: 6/10 Agg: movement Best: 2/10 Eases: recliner or up moving around. Describes the pain as dull and achy. The pain is located in the groin and along the hip area to the gluts. Tried pain mgmt but they could not get it under control. Does have knee issues- no radiating pain. No N/T in the toes. Uses a straight cane for about 5 months-community distances. Fully I with all ADL's and driving- grocery shopping and cleaning. Sleep: disturbed- CPAP machine- sleeps on her back/side. X-rays which showed severe OA. PMHx/Meds: only change since Feb [address] Corado is addition of lasik. - Objective Posture: FH, RS- does not correct given verbal or tactile cues. Gait: wide MENDEL- decreased stance on the left LE with poor heel/toe pattern- Straight Cane- good mónica. Stairs: asc/desc 8 non recip- up with the right down with the right. Straight cane and rail. HR/TR: able with UE A. SLS: weight shift but unable to SLS. ROM: WFL in all planes of lumbar and hip- pain with hip flexion. Strength: Ankle: 5/5 Knee: 5/5, Hip: flexion: 4-/5, Extn: 4/5, Abd: 4/5, Add: 4+/5, IR/ER: not tested due to pain - Balance/Special Test Scores Lower Extremity Functional Score: 27 TUG Test Time Seconds: 14.58 - Goals Goal 1:: Patient will be I with HEP and progression Goal Time Frame: 4-6 Weeks Goal 2:: Patient will ambulate >300 feet with a normalized gait pattern with LRD Goal Time Frame: 4-6 Weeks Goal 3:: Patient will asc/desc 8 stairs with recip pattern and LRD Goal Time Frame: 4-6 Weeks Goal 4:: Patient will report more than 50% improvement with aquatic PT Goal Time Frame: 4-6 Weeks - Rehabilitation Potential Physical Therapy Diagnosis: Patient presents with hypomobility- she has decreased pain free ROM, LE and core strength/stabilization, flexibility and muscular endurance leading to abnormal gait and decreased ability to perform ADL's. Rehabilitation Potential: Good - Anticipated Interventions Patient/Client Instruction: Educate patient on: Benefits of Fitness Program Therapeutic Exercise to Include: Strength training, Endurance training, Balance training, Agility training, Body mechanics, Postural training, Flexibilty training, In an aquatic setting, Dynamic Lumbar Stabilization, Scapular Strength/Stabilization For the Purpose of:: To improve muscle performance and motor function Thank you for the opportunity to evaluate your patient. For Medicare and Medicare HMO plans, please review the plan of care and approve it. It will need to be FAXED BACK to us at [phone] for Medicare purposes. For Medicare only, by signing this I certify the plan of care. Please let me know if there are questions or concerns regarding this plan of care. Physician Signature: Date:
--- NOTE | 2021-05-04 11:39 | HP.PT.NRP ---
MU GARDNER was seen in my office for initial evaluation on 03/10/21. The following Plan of Care was established for this patient: Initial Frequency: 2x /Week Initial Duration: 4 Weeks Patient/Client Instruction: Educate patient on: Benefits of Fitness Program Therapeutic Exercise to Include: Strength training, Endurance training, Balance training, Agility training, Body mechanics, Postural training, Flexibilty training, In an aquatic setting, Dynamic Lumbar Stabilization, Scapular Strength/Stabilization For the Purpose of:: To improve muscle performance and motor function This patient was last seen in our office . Pertinent comments regarding their Physical therapy will appear below: Patient has not attended physical therapy in over 30 days- appropriate for d/c and return to MD for further evaluation as needed. At this point I will be discontinuing this patient from physical therapy. I would be happy to see this patient again in the future if found appropriate by the physician. Thank you! Cierra Kim, RLT Balance/Gait/Functional tests - Balance/Special Test Scores Lower Extremity Functional Score: 27 TUG Test Time Seconds: 14.58 Tug Test: <20 sec.=mostly independent
== END 2021-04-02 19:00 | disposition home or self-care (01) ==
LOC: PT 10:30
PROVIDERS: PCP Family Medicine; Referring Provider Specialist; Visit Provider Specialist
DX: M16.12 Unilateral primary osteoarthritis, left hip (principal)
CPT/HCPCS: 97110; 97113; 97162

== ENCOUNTER 2021-08-26 06:36 | Observation (INO) | payer MEDICARE, SELFPAY ==
--- NOTE | 2021-08-10 22:47 | HP.PCM_ITS ---
History and Physical History and Physical [facility] Patient Name: Trinh Luna : 1945 From: DUANE MULLEN PA-C DATE OF SURGERY: 08/26/2021 SCHEDULED PROCEDURE: left total hip arthroplasty HISTORY OF PRESENT ILLNESS: Preoperative history and physical exam was performed on August 10, 2021. This is a 76-year-old female who is had ongoing left hip pain for several years. Her pain currently as a 7/10 with activities. She does have start up pain. Her pain has been aching and sore. Pain is increased with going up and down stairs, sitting, walking. She has difficulty with activities of daily living including housework as well as leisure activity such as walking. She has tried rest, ice, heat, elevation with no relief in symptoms. Patient has had previous corticosteroid injections from her pain management doctor with no relief in symptoms. She has tried formal physical therapy and home exercises without relief. She has been through water therapy without relief. She has tried oral medications including Tylenol and Advil. Patient does use a cane for ambulatory assistance. There is been no recent trauma or injury. She has been working diligently on appropriate weight loss. Patient has lost documented 10 pounds since March 2021. She currently denies any fevers, chills, recent infections. There is no previous history of DVT or pulmonary embolism. We are obtaining surgical clearance from the primary care physician Dr. Gale. After failing conservative measures and discussing treatment options with Dr. Osbaldo Palacio, the patient does wish to proceed with a left total hip arthroplasty. Patient does have medical history pertinent for hypertension, sleep apnea with use of CPAP, gastroesophageal reflux disease. REVIEW OF SYSTEMS: Review Of Systems: Constitutional: Denies anorexia, anxiety, change in appetite, fever and weight change,hard of hearing, and vision problems. Cardiovasular: Denies chest pain, heart murmur, irregular heartbeat and peripheral vascular disease. Respiratory: Reports asthma, cough and sleep apnea, but denies pneumonia, shortness of breath, tuberculosis and wheezing. Gastrointestinal: Reports constipation and diarrhea, but denies heartburn, nausea, bloody stools and vomiting, and difficulity swallowing. Genitourinary: Reports incontinence,also more than 3 months without a menstral cycle , Musculoskeletal: Reports leg swelling, trouble walking and weakness, but denies ambulatory dysfunction and limp. Skin: Denies Raynaud's, history of shingles and tattoo. Neurological: Reports dizziness and numbness/tingling but denies ambulatory dysfunction and tremor. Psychiatric: Denies anxiety, depression, insomnia, mental illness and stress. Hematologic/Lymphatic: Reports bleeding/bruising tendency, but denies anemia and past transfusion. Reviewed and updated. PAST MEDICAL HISTORY: Advance Care Plan: Other Directive, LIVING WILL Effective Date: 02/12/2016 Other Directive, POA Effective Date: 02/12/2016 Past Medical History: Medical Problems: Asthma, High Blood Pressure, Kidney Stones, Sleep Apnea, Gastroesophageal Reflux Disease Accidents: Fracture - RT LEG-1969, RT FOOT 1989, RT TOES Fracture - (1999) RT FEMUR Surgical Hx: Hysterectomy - (2004) [facility] Cyst On Liver Remove - (08/22/2009) Kidney Repair - (2010) Hernia Repair - (2010) Lower Back Surgery - (2008) Knee Replacement RT - (2002) RT TKR - (02/13/2019) SAW @ [facility] Right Total Knee Revision, Polyethylene Exchange - (10/14/2020) SAW @ [facility] Anesthesia Complications: None Assistive Devices: Glasses, Cpap, Cane Reviewed and updated. 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 Personal Habits: Tobacco Use: Patient has never smoked.Cigarette Use: Never.Smokeless Tobacco: Never Used Smokeless Tobacco.E-Cigarette Use: Never used.Alcohol: Denies use.Drug Use: Denies Use.Enjoy Exercising: Exercises 1-3 x/ month. Reviewed and updated. VITALS: Ht: 62 Wt: 253lb Wt k.761 BMI: 46.3 BP: 132/68 Pulse: 57 Resp: 16 T: 98.2 T: 36.8C Pain Level: 7 O2SatR: 98 ALLERGIES: Sulfa Etodolac MEDICATIONS: Amlodipine/Olmesartan Medoxomil 5-40 mg 1 tablet PO QD, Atenolol 100 mg 1 tablet PO BID, Tylenol Extra Strength 500 mg 2 tablets by mouth 3x/day as needed for pain. Do not exceed 3000mg/day, Multi Vitamin 1po qday, Vitamin D3 1000 Unit 1 PO qday, Lyrica 100 mg one by mouth twice a day, Pepcid 20 mg 1 by mouth while using meloxicam and aspirin, Vitamin C 1000 mg po daily, B-100 1po qday, Cranberry 450 mg 2po qday, Cetirizine HCL 10 mg 1 by mouth every day, Glucosamine Chondroitin 1500 Complex 1500 Com po as directed on bottle, Aspirin 81 81 mg 1 pill daily PRE-OP EXAM: General appearance:NORMAL Other: Eyes: Conjunctivae and lids: NORMAL Pupils: ERR Ears, Nose, Mouth, and Throat: NORMAL Other: Inspection of lips, teeth and gums: NORMAL Other: Neck: Examination of neck: no masses noted. Respiratory: Assessment of respiratory effort: NORMAL Other: Auscultation of lungs: clear to auscultation no wheezes, rhonchi or rales. Cardiovascular: Auscultation of heart: regular rate and rhythm, no murmurs, gallops or rubs. PHYSICAL EXAMINATION: On exam patient does walk with an antalgic gait with use of cane. She has tenderness to palpation over the lateral left hip. There is no skin irritation in the skin fold. She does have a small scratch over the abdomen from her nail. There is no erythema or active drainage. She has limited range of motion of the left hip secondary to pain. Sensation intact to light touch. IMAGING STUDIES: X-rays were obtained at [facility] on August 10, 2021 including 3 views AP pelvis, AP left hip, crossfire lateral left hip reveals severe left hip joint space narrowing with subchondral sclerosis and osteophyte formation consistent with severe stage IV left hip osteoarthritis. There is subchondral cyst formation in the acetabulum and femoral head. No lytic or blastic lesions. No appreciable acute finding for fracture or dislocation. IMPRESSION: 1. Severe left hip osteoarthritis 2. Hypertension 3. Sleep apnea with use of CPAP 4. Gastroesophageal reflux disease 5. Asthma 6. History kidney stones PLAN: Dr. Osbaldo Palacio did discuss and review with the patient all treatment options including surgical versus nonsurgical options. Patient does wish to proceed with the above-stated procedure. Potential risks, benefits, and complications of the procedure were discussed in detail including but not limited to , infection, nerve and blood vessel damage, persistent pain, numbness, tingling, paresthesias, blood clot, pulmonary embolism, and requirement for possible furt her surgery. The patient expressed full understanding and has no further questions for the doctor. Patient does agree to proceed with the above-stated procedure and has signed the surgery consent form. We discussed the current risks associated with COVID 19. This does include the risk of exposure while in the hospital. Patient was reassured local hospitals have low infection rates and are taking all necessary precautions to avoid exposure to patients. In addition, we discussed strategies that can be used to help limit exposure including those that limit the patient's time in the hospital. Also using strategies to limit the patient's need for continued inpatient services after being discharged from the hospital. Patient was notified that we will need to comply with any screening or testing the hospital wishes to perform or that surgery may be delayed for any positive results. This dictation was created using voice recognition software. Phonetic and/or grammatical errors may exist. ___ I have re-examined the patient. There are no clinical changes since date of exam. ___ See progress notes for changes. ___ Dictated on admission Date: Time: Signature:
--- NOTE | 2021-08-14 09:14 | EKG12_ITS ---
Test Reason : PRE OP Blood Pressure : / mmHG Vent. Rate : 058 BPM Atrial Rate : 058 BPM P-R Int : 194 ms QRS Dur : 086 ms QT Int : 446 ms P-R-T Axes : 079 035 044 degrees QTc Int : 437 ms Sinus bradycardia with sinus arrhythmia Otherwise normal ECG Confirmed by HERBERT BRANDT, LONNY ([id number]), editor publications KEISHA CHEN ([id number]) on 08/14/2021 1:05:15 PM Referred By: Osbaldo Palacio Confirmed By:LONNY GODINEZ MD
[2021-08-14 10:11] LABS: Absolute Lymphocyte Count 1.25 X10^3/uL (0.83-4.51); Absolute Neutrophil Count 3.9 X10^3/uL (2.0-7.7); Basophil# 0.09 X10^3/uL; Basophil% 1.5 % (0-1); Eosinophil# 0.26 X10^3/uL; Eosinophils% 4.3 % (0-5); Hematocrit 44.1 % (37-47); Hemoglobin 14.1 g/dL (12.0-15.0); Lymphocyte # 1.25 X10^3/ul (0.83-4.51); Lymphocyte % 20.7 % (19-41); Mean Corpuscular Hgb 30.3 pg (27.0-32.0); Mean Corpuscular Volume 94.8 fL (81-99); Mean Platelet Vol. 10.9 fl (6.2-12.0); Monocyte# 0.56 X10^3/uL; Monocyte% 9.3 % (0-10); NRBC Flagged by Analyzer 0 % (0-5); Neutrophil # 3.85 X10^3/uL (2.7-7.7); Neutrophil % 63.9 % (47-70); Platelet Count 263 K/mm3 (150-450); RBC Distribution Width CV 13.1 % (11.6-14.6); RBC Distribution Width SD 45.6 fl (35.1-43.9); Red Blood Count 4.65 M/mm3 (4.2-5.4)
[2021-08-14 10:27] LABS: Prothrombin Time (Protime)PT. 13.3 SECONDS (11.7-14.9)
[2021-08-14 10:28] LABS: AST(SGOT) 23 U/L (15-37); Alanine Aminotransfer ALT/SGPT 25 U/L (13-56); Albumin, Serum 3.7 g/dL (3.2-5.0); Alkaline Phosphatase 115 U/L (45-117); Bilirubin, Direct 0.14 mg/dL (0.00-0.30); Globulin 3.8 g/dL (2.2-4.2); Magnesium 2.1 mg/dL (1.6-2.6); Partial Thromboplast Time 32.6 Seconds (24.1-36.2); Protein, Total 7.5 g/dL (6.4-8.2)
[2021-08-14 10:35] LABS: Anion Gap 5 (5-15); BUN 18 mg/dL (7-18); BUN/Creat Ratio 16.5 RATIO (10-20); Calcium,Total 9.5 mg/dL (8.5-10.1); Chloride 107 mmol/L (98-107); Creatinine, Serum 1.09 mg/dL (0.55-1.02); EST Glomerular Filtration Rate 52 mL/min (>60); Est Glom Filt Rate - Afr Amer 63 mL/min (>60); Glucose 94 mg/dL (74-106); Sodium Level 140 mmol/L (136-145)
[2021-08-14 10:56] LABS: Hemoglobin A1c 5.5 % (3.8-5.6)
[2021-08-26] VITALS (12 sets, daily range): BP systolic 125–140; BP diastolic 51–76; PULSE 57–77; RESP 14–18; TEMP 36.2–36.7; O2SAT 4–100; BMI 46.3
--- NOTE | 2021-08-26 | HIP_PTH ---
PATIENT: MU GARDNER LOC: [facility] U#:[id number] AGE/SX: 76/F ROOM: W[facility]312 RE08/26/[address]: Dr. Osbaldo Palacio MD : 1945 BED: 1 DIS: 08/27/2021 SPEC #: [id number] RECD: 08/26/21 10:38 STATUS: ABIMAEL ALEGRIA #: [id number] JULIANNE: 08/26/21 00:[address]: Osbaldo Palacio DEPT: SURGICAL PATHOLOGY RECD BY: Matthew Mcdaniel ENTERED: 08/26/21 11:55 SP TYPE: TOTAL HIP OTHR DR: Dr. Elijah Gonzalez MD Tissues: Hip, NOS Procedures: Decalcification bone/plaque Surgery Specimen Level IV HEADER OPERATION: ERAS, direct anterior total hip arthroplasty PRE-OP DIAGNOSIS: Severe left hip osteoarthritis TISSUE SUBMITTED: Femoral head and reamings MICROSCOPIC DIAGNOSIS Bone and tissue of left hip, total hip resection: Severe degenerative joint disease. AM:kash 09/02/2021 MICROSCOPIC DESCRIPTION Slides are reviewed. GROSS DESCRIPTION Received is one container labeled with the patient's name and designated bone and soft tissue hip, left. The specimen consists of a farrar femoral head measuring 4 x 4.5 x 4 cm. A detached piece of bone is present consistent with portion of femoral neck measuring 5 x 4 x 1.5 cm. A detached piece of tissue entirely consists bone reaming measuring in aggregate 7 x 7.5 x 1 cm. The articular surface displays prominent osteophyte formation, eburnation and bone erosion. Flash Welder sections are submitted in two cassettes after decalcification as follows: 1 ? bone reaming, 2 ? femoral head. / SJ:kash 08/26/2021 TC:5 [facility]: [id number], [id number]
--- NOTE | 2021-08-26 06:38 | PCM.OPRPT ---
Report of Operation Date of Procedure: 08/26/21 Pre-Operative Diagnosis: Left hip primary osteoarthritis Morbid obesity Post-Operative Diagnosis: Left hip primary osteoarthritis Morbid obesity Surgery/Procedure Performed:: Left minimally invasive direct anterior hip replacement Description of Surgical Findings:: Stable hip with equal leg lengths Surgeon: Osbaldo Palacio music department chair: Yordan Alfaro Type of Anesthesia: Spinal Anesthesiologist: Nabor Mckeon Special Medications: 2 g Ancef, 1 g TXA at incision, 1 g TXA closure, 10 mg Decadron, joint cocktail (5 mg Duramorph, 30 mL of 0.5% Ropivicaine, 1000 units of epinephrine, 30 mg of Toradol) Specimen's removed: Bony cuts Estimated Blood Loss (mL): 300 Fluids Replaced: 1300 mL crystalloid Description of Procedure: Components used: 1. Insignia Camak femoral stem size 3, high offset 2. Mabel trident 2 acetabular shell size 50 mm 3. Camak X3 polyethylene D MDM 4. Camak cobalt-chromium 22.2mm, 3mm femoral head 5. 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 X-rays were consistent with osteoarthritis including joint space narrowing, osteophyte formation and subchondral cysts. Total hip replacement was discussed with the patient with risks and benefits including but not limited to blood loss, DVTs, PEs, neurovascular damage, dislocation, general risks of anesthesia including loss of life. Patient demonstrated an understanding medical clearance is obtained the patient was consented for surgery. Procedure: On the date of procedure the patient's L hip was marked in the preoperative area. Patient was then taken back to the operating room where anesthesia assumed control of the C-spine and airway and administered anesthetic. Patient was transferred to the operating table and placed in the supine position. The hips were placed at the break of the bed and a sacral bump was placed. L The lower extremity was then prepped out in a sterile fashion using chlorhexidine while the surgeon scrubbed. The PA was vital in the positioning of the patient. Upon reentering the room the left lower extremity was draped in the standard orthopedic fashion and the incision was marked. A timeout was called and everyone agreed upon the side, the site, the procedure be performed, antibody given, and patient's identity. At this time incision was made through skin, subcutaneous tissue, and fat down to fascia. The fascia was then incised and the TFL was retracted laterally. A retractor was placed on the lateral border of the femoral neck. Attention was directed to the inferior portion of the approach and all crossing vessels were identified and appropriately coagulated. A retractor was then placed on the medial portion of the femoral neck. The anterior capsule was then cleared of all soft tissue and then H shaped capsulotomy was made. The retractors were then placed inside the capsule. The femoral neck was identified and a cleanup cut was made. At this time a power corkscrew was used to remove the femoral head. Attention was then turned toward the acetabulum where the soft tissues were appropriately retracted and the acetabulum was sequentially reamed to 50 mm. A 50 mm cup was then selected and impacted into place. Acetabular liner was impacted into place and locking mechanism was verified. The position of the acetabular cup was then verified under live fluoroscopy. Attention was then turned to the femur. Soft tissue releases on the medial and lateral femoral neck were appropriately done, the leg was externally rotated and lateralized. A Harris retractor was placed medially and proximally to the greater trochanter this allowed appropriate visualization and exposure of the femoral canal. Rongeour was then used to remove excess lateral bone. A canal finder and entry broach were used to open the proximal canal. Once we verified we were down the femoral canal we subsequently broached up to a size 2 femur. The appropriate neck was placed in the previously selected head was trialed with a 3 mm neck. Traction was pulled and the hip was reduced with internal rotation. Once it was appropriately reduced and stability was checked. There was minimal shuck, equal leg lengths and appropriate stability with hyperextension and external rotation as well as with 90? flexion and internal rotation. Fluoroscopy was then also used to verify the position of the components and leg lengths using the contralateral side for comparison. At this point the stem size appears small and the legs remain short. Based on this we elected to dislocate the hip. Proximal femur was again exposed and we broached to a size 3. Based on where the size 3 set we elected to place the final implants and then trial off the final stem. After trialing a +3 leg lengths were now equal. Offsets were appropriate and leg lengths felt appropriate. Hip was stable on anterior and posterior testing. The trial components were then dislocated the proximal femur was again exposed and the components were removed from the wound. The final components were verified and opened. The wound was copiously irrigated out with normal saline. The acetabulum was checked for any residual debris. The final components were placed and impacted. Traction and internal rotation were again used to reduce the hip. After adequate reduction the hip remained stable with appropriate leg lengths. The final components were once again checked with live fluoroscopy and were found to be satisfactory. The wound was then copiously irrigated with normal saline once more, and hemostasis was obtained. Closure was then done using #1 Vicryl runner to close the fascia. A 2-0 vicryl interuppted sutures were used to close the subcutaneous skin. A 3-0 Monocryl and Steri-Strips were used for final skin closure. A Silverlon dressing was placed. Patient was awakened by anesthesia and transferred to the [facility]. Patient was then transferred to the PACU for recovery. During the course of the procedure the physician pension adviser (PE) played a vital role. Their intimate knowledge of my steps in the procedure aided in safe and expedient completion of the procedure. The PE played a vital rolls in positioning particularly in obtaining the appropriate positioning of the sacral bump. The PE was also vital in the retraction of soft tissues during the exposure and especially the femoral work as this is a vital part of the procedure to prevent complications and fractures. The PE was also vital and protecting soft tissues during times of bony cuts and reaming. He also played a vital role in closure with my direct supervision. The PE was also important during reduction and dislocation of the joint and trials intraoperatively. Postoperative plan: Patient will get 24 hours postop antibiotics. Patient will get in-house physical therapy and will be weight-bear as tolerated. Patient will follow up in office in 2 weeks for a wound check and x-rays. Aspirin 81 mg twice daily. Patient will be placed on doxycycline for 2 weeks following surgery due to her increased risk of complications including infection postoperatively. Modifier 22: Patient's morbid obesity increased complexity of the case. Based on this visualization of the hip during the procedure was deeper in the wound making larger exposure increasing time for exposure more time-consuming. Positioning the extremity was more effort and time-consuming. Based on this increase in time and effort during the case as well as increased care postoperatively with closer monitoring and likely have more frequent visits to ensure adequate wound healing. Compensation of this case should be considered in an appropriate manner as a more straightforward case would take significantly less time and resources. Complications No intraoperative complications Admit VTE Documentation VTE Present on Admission: No VTE Mechan Device Prophylaxis: SCD's and Thigh High KALEB Hose VTE Pharm Prophylaxis ordered?: Yes
[2021-08-26] MEDS: Gabapentin 600 MG Tablet PO (07:06)
[2021-08-26] MEDS: Lactated Ringers 1,000 ML 999 ML IV ×2 (07:06→10:45)
[2021-08-26] MEDS: Acetaminophen 500 MG Tablet 1000 MG PO ×3 (07:06→21:23)
[2021-08-26 07:20] LABS: Bedside Glucose 157 mg/dL (74-106)
[2021-08-26] MEDS: Cefazolin 2 GM in 0.9% Normal Saline 100 ML IV (08:24)
[2021-08-26] MEDS: TXA 1000mg in NS100 100ml (IVPB at Incision) 660 MG IV (08:42)
--- NOTE | 2021-08-26 09:25 | RAD_ITS ---
STUDY: X-RAY - PELVIS AND LEFT HIP REASON FOR EXAM: Intraoperative fluoroscopy for left hip arthroplasty. TECHNIQUE: 7 intraoperative images of the pelvis and hip. COMPARISON: Radiographs 08/09/2017. FINDINGS: There is a left hip arthroplasty without demonstrated complication. 16.1 seconds of fluoroscopy time was used. Electronically Signed: Jeffrey Chandler MD at 13:51 EDT , RAD/Hip 1 view with Pelvis IMPRESSION: undefined
[2021-08-26] MEDS: TXA 1000mg in NS100 100ml (IVPB at Closure) 660 MG IV (09:55)
[2021-08-26] MEDS: Lactated Ringers 1,000 ML 125 ML IV (10:00)
--- NOTE | 2021-08-26 11:05 | RAD_ITS ---
STUDY: X-RAY - PELVIS AND LEFT HIP REASON FOR EXAM: Postoperative evaluation of left hip arthroplasty. TECHNIQUE: 2 views of the pelvis and hip. COMPARISON: Radiographs 08/09/2017. FINDINGS: There is postoperative gas in the soft tissues. Normal bilateral iliac wings, sacroiliac joints and visualized sacrum. Normal bilateral superior and inferior pubic rami. Normal pubic symphysis. Normal bilateral ischial tuberosities. There is a left hip arthroplasty without evidence of complication. RAD/Hip Min 2 Views (Portable) IMPRESSION: Uncomplicated left hip arthroplasty. Electronically Signed: Jeffrey Chandler MD at 14:07 EDT ,
--- NOTE | 2021-08-26 13:07 | PN.HOSP_ITS ---
Subjective Subjective Consult requested by Dr. Palacio for postop medical management. Patient states that she feels well has some discomfort in her left hip but is fairly well tolerable. Patient does complain of pain in her knee but notes that she would eventually need a knee replacement. Objective Data Objective Data Vital Signs: Vital Signs Temp Pulse Resp BP Pulse Ox 36.4 C L 69 18 126/55 H 100 08/26/21 12:48 08/26/21 12:48 08/26/21 12:48 08/26/21 12:48 08/26/21 12:48 Oxygen Flow Rate (L/min) 4 Oxygen Delivery Method Nasal Cannula Weight: 114.759 kg Body Mass Index (BMI) 46.3 Intake & Output: Intake and Output for Last 24 Hours 08/24/21 08/25/21 08/26/21 23:59 23:59 23:59 Intake Total 2432 / 2432 Balance 2432 / 243 Lab / Micro Data Result Diagrams: 08/14/21 09:39 08/14/21 09:39 Labs: Laboratory Results - last 24 hr 08/26/21 06:55: POC Glucose 157 H Micro: Microbiology 08/14/21 09:39 Swab (Method) Nasal Screen MRSA/MSSA - Final Physical Exam Const alert Resp normal respiratory effort, no retractions, no use of accessory muscles and clear to auscultation bilaterally Cardio regular rate, regular rhythm, S1 normal heart sound and S2 normal heart sound GI normal to inspection, nondistended, normoactive bowel sounds, soft to palpation, non-tender and non-distended Extremity Extremity Narrative: Bilateral SCDs lower extremities. Skin no rashes or lesions noted Assessment & Plan Assessment/Plan (1) Hip joint replacement status: PLAN: 1. s/p left minimally invasive direct anterior hip replacement * performed 08/26 * mgmt per orthopaedics 2. HTN * continue amlodipine losartan 3. Overactive bladder * mirabegron 4. VTE prophylaxis: BID ASA per orthopaedics Patient very stable at present. I anticipate patient would be medically ready for discharge whenever is felt appropriate by orthopedics. Charges/Coding Visit Charges Inpatient E&M: 93406 Subs Hosp L2
[2021-08-26] MEDS: Aspirin 81 MG TAB.CHEW PO (16:56)
[2021-08-26] MEDS: oxyCODONE 5 MG Tablet PO (16:56)
--- NOTE | 2021-08-26 17:52 | NURSING ---
pt has own cpap/bipap at bedside for hs and CPS (Levon) is aware
[2021-08-26] MEDS: Pregabalin 50 MG Capsule 100 MG PO (21:23)
[2021-08-26] MEDS: Mirabegron 50 MG TAB.ER.24H PO (21:24)
[2021-08-26] MEDS: Senna/Docusate Sodium 1 Tablet 2 TABLET PO (21:24)
[2021-08-26] MEDS: Atenolol 100 MG Tablet PO (22:21)
[2021-08-27 01:53] VITALS: BP 142/71; PULSE 60; RESP 16; TEMP 36.5; O2SAT 100
[2021-08-27 05:28] VITALS: BP 154/84; PULSE 59; RESP 18; TEMP 36.4; O2SAT 100
[2021-08-27] MEDS: oxyCODONE 5 MG Tablet PO ×2 (05:30→12:11)
[2021-08-27] MEDS: Acetaminophen 500 MG Tablet 1000 MG PO (05:31)
[2021-08-27 06:00] LABS: Hematocrit 37.7 % (37-47); Hemoglobin 12.4 g/dL (12.0-15.0); Mean Corp Hgb Conc 32.9 g/dL (32-36); Mean Corpuscular Hgb 30.4 pg (27.0-32.0); Mean Corpuscular Volume 92.4 fL (81-99); Mean Platelet Vol. 11.1 fl (6.2-12.0); Platelet Count 251 K/mm3 (150-450); RBC Distribution Width CV 12.7 % (11.6-14.6); RBC Distribution Width SD 43.2 fl (35.1-43.9); Red Blood Count 4.08 M/mm3 (4.2-5.4); White Blood Count 16.2 K/mm3 (4.4-11.0)
[2021-08-27 06:26] LABS: Anion Gap 5 (5-15); BUN 19 mg/dL (7-18); BUN/Creat Ratio 21.2 RATIO (10-20); Calcium,Total 8.7 mg/dL (8.5-10.1); Chloride 106 mmol/L (98-107); EST Glomerular Filtration Rate 65 mL/min (>60); Est Glom Filt Rate - Afr Amer 79 mL/min (>60); Estimated Creatinine Clearance 42.72 ml/min; Glucose 156 mg/dL (74-106); Potassium 4.5 mmol/L (3.5-5.1); Sodium Level 139 mmol/L (136-145)
--- NOTE | 2021-08-27 07:00 | PN.HOSP_ITS ---
Subjective Subjective Feels good. No events overnight. Objective Data Objective Data Vital Signs: Vital Signs Temp Pulse Resp BP Pulse Ox 36.4 C L 59 L 18 154/84 H 100 08/27/21 05:28 08/27/21 05:28 08/27/21 05:28 08/27/21 05:28 08/27/21 05:28 Oxygen Flow Rate (L/min) 2 Oxygen Delivery Method Nasal Cannula Weight: 114.759 kg Body Mass Index (BMI) 46.3 Intake & Output: Intake and Output for Last 24 Hours 08/25/21 08/26/21 08/27/21 23:59 23:59 23:59 Intake Total 3730.75 / 3730.75 486.25 / 486.25 Balance 3730.75 / 3730.75 486.25 / 486.25 Lab / Micro Data Result Diagrams: 08/27/21 05:42 08/27/21 05:42 Labs: Laboratory Results - last 24 hr 08/26/21 06:55: POC Glucose 157 H 08/27/21 05:42: WBC 16.2 H, RBC 4.08 L, Hgb 12.4, Hct 37.7, MCV 92.4, MCH 30.4, MCHC 32.9, RDW Std Deviation 43.2, RDW Coeff of Luis Felipe 12.7, Plt Count 251, MPV 11.1 08/27/21 05:42: Sodium 139, Potassium 4.5, Chloride 106, Carbon Dioxide 28.0, Anion Gap 5, BUN 19 H, Creatinine 0.90, Estim Creat Clear Calc 42.72, Est GFR (MDRD) Af Amer 79, Est GFR (MDRD) Non-Af 65, BUN/Creatinine Ratio 21.2 H, Glucose 156 H, Calcium 8.7 Micro: Microbiology 08/14/21 09:39 Swab (Method) Nasal Screen MRSA/MSSA - Final Radiography Diagnostic Testing: Radiology Impression Hip/Pelvis X-Ray 08/26/21 09:25 IMPRESSION: undefined Hip X-Ray 08/26/21 11:05 IMPRESSION: Uncomplicated left hip arthroplasty. Electronically Signed: Jeffrey Chandler MD at 14:07 EDT , Physical Exam Const alert and no apparent distress Resp normal respiratory effort, no retractions, no use of accessory muscles and clear to auscultation bilaterally Cardio regular rate, regular rhythm, S1 normal heart sound and S2 normal heart sound GI normal to inspection, nondistended, normoactive bowel sounds, soft to palpation, non-tender and non-distended Assessment & Plan Assessment/Plan (1) Hip joint replacement status: PLAN: 1. s/p left minimally invasive direct anterior hip replacement * performed 08/26 * mgmt per orthopaedics 2. HTN * fairly stable * continue amlodipine losartan 3. Leukocytosis * likely due to steroids 4. Overactive bladder * mirabegron 5. VTE prophylaxis: BID ASA per orthopaedics Patient very stable at present. I anticipate patient would be medically ready for discharge whenever is felt appropriate by orthopedics. Charges/Coding Visit Charges Inpatient E&M: 86371 Subs Hosp L2
[2021-08-27 07:50] VITALS: O2SAT 98
[2021-08-27 08:27] VITALS: BP 140/51; PULSE 60; RESP 18; TEMP 36.6; O2SAT 97
[2021-08-27 08:40] VITALS: O2SAT 96
[2021-08-27] MEDS: Pregabalin 50 MG Capsule 100 MG PO (09:03)
[2021-08-27] MEDS: amLODIPine 5 MG Tablet PO (09:03)
[2021-08-27] MEDS: Multivitamins,Therapeutic Tablet 1 TABLET PO (09:03)
[2021-08-27] MEDS: Doxycycline 100 MG CAPSULE PO (09:03)
[2021-08-27] MEDS: Ascorbic Acid 500 MG Tablet 1000 MG PO (09:03)
[2021-08-27] MEDS: Mirabegron 50 MG TAB.ER.24H PO (09:03)
[2021-08-27] MEDS: Aspirin 81 MG TAB.CHEW PO (09:04)
[2021-08-27] MEDS: Senna/Docusate Sodium 1 Tablet 2 TABLET PO (09:04)
[2021-08-27] MEDS: Loratadine 10 MG Tablet PO (09:04)
[2021-08-27] MEDS: Famotidine 20 MG Tablet PO (09:04)
--- NOTE | 2021-08-27 09:41 | PN.ORTHO_ITS ---
Subjective Subjective The patient was sitting in bedside chair upon examination. Patient denies any chest pain, shortness of breath, dizziness, lightheadedness, nausea or vomiting, or calf pain. Pain is controlled on medications. No adverse overnight events. Overall patient is doing well this morning. She has no complaints. Physical therapy did work with her yesterday and today and patient did well. Patient did have troubles with her CPAP machine and was not able to use it overnight. They utilize oxygen instead. She currently denies any chest pain or shortness of breath. Objective Data Objective Data Vital Signs: Vital Signs Temp Pulse Resp BP Pulse Ox 98 F 60 18 140/51 H 97 08/27/21 08:27 08/27/21 08:27 08/27/21 08:27 08/27/21 08:27 08/27/21 08:27 Oxygen Flow Rate (L/min) 2 Oxygen Delivery Method Room Air Weight: 114.759 kg Body Mass Index (BMI) 46.3 Intake & Output: Intake and Output for Last 24 Hours 08/25/21 08/26/21 08/27/21 23:59 23:59 23:59 Intake Total 3730.75 / 3730.75 486.25 / 486.25 Balance 3730.75 / 3730.75 486.25 / 486.25 Lab / Micro Data Result Diagrams: 08/27/21 05:42 08/27/21 05:42 Labs: Laboratory Results - last 24 hr 08/27/21 05:42: WBC 16.2 H, RBC 4.08 L, Hgb 12.4, Hct 37.7, MCV 92.4, MCH 30.4, MCHC 32.9, RDW Std Deviation 43.2, RDW Coeff of Luis Felipe 12.7, Plt Count 251, MPV 11.1 08/27/21 05:42: Sodium 139, Potassium 4.5, Chloride 106, Carbon Dioxide 28.0, Anion Gap 5, BUN 19 H, Creatinine 0.90, Estim Creat Clear Calc 42.72, Est GFR (MDRD) Af Amer 79, Est GFR (MDRD) Non-Af 65, BUN/Creatinine Ratio 21.2 H, Glucose 156 H, Calcium 8.7 Micro: Microbiology 08/14/21 09:39 Swab (Method) Nasal Screen MRSA/MSSA - Final Radiography Diagnostic Testing: Radiology Impression Hip/Pelvis X-Ray 08/26/21 09:25 IMPRESSION: undefined Hip X-Ray 08/26/21 11:05 IMPRESSION: Uncomplicated left hip arthroplasty. Electronically Signed: Jeffrey Chandler MD at 14:07 EDT , Physical Exam Narrative Vital signs stable and afebrile. SCDs and KALEB hose are in place bilaterally Patient is able to plantarflex and dorsiflex actively. Sensation is intact to light touch to saphenous, sural, superficial and deep peroneal, and tibial distribution. Dressing is clean dry and intact. Negative Homans bilaterally, negative signs and symptoms of DVT. Const alert, oriented x3 and no apparent distress Assessment & Plan Assessment/Plan (1) S/P total left hip arthroplasty: PLAN: 1. S/P direct anterior left total hip arthroplasty POD #1 2. Continue Pain Medications: Tylenol and oxycodone 3. DVT Prophylaxis: Take 81 mg aspirin twice daily for 4 weeks postoperatively for DVT prophylaxis. Patient denies any previous history of DVT or pulmonary embolism 4. PT/OT: Weightbearing as tolerated 5. H & H: 12.4/37.7, asymptomatic. Postoperative anemia secondary to acute blood loss from surgery without any intra operative complications. 6. Reactive leukocytosis: Currently 16.2, afebrile. No evidence of underlying signs of infection. Patient does have underlying type 2 diabetes mellitus 7. Continue postoperative medical management per medicine 8. Continue antibiotics for 2 weeks following surgery due to high risk with morbid obesity and infection. Patient will continue with doxycycline for 2 weeks postoperatively. Discussed with the patient hypersensitivity to the sun and to take appropriate precautions. Also recommended probiotics while on the antibiotics. Patient voiced understanding and agreement. 9. Encouraged Incentive Spirometry 10. Disposition: Orthopedically stable, plan will be for discharge home today. Discussed with therapy and patient has tolerated therapy very well. Patient has outpatient physical therapy established. She will follow-up per postop instructions. I also discussed with the patient when she removes the Mepilex dressing after 5 days, I would like her to then place a washcloth, ABD, or 4 x 4 dressing in the skin fold to protect the medial incision from the pannus. We discussed possible incision breakdown if this area remains with moisture. She voiced understanding agreement. She will contact her office upon discharge with any concerns or questions. Patient would like her prescriptions E scrib[facility] to [facility]. Patient is also wishing to be discharged home today. I have reviewed the [place] Automated Rx Reporting System (OARRS) report for this patient for refill pattern and other prescriber involvement as part of the appropriate surveillance for the provision of acute and chronic controlled medications. The report was requested and reviewed on the date of this entry and was considered in the prescribing process. This dictation was created using voice recognition software. Phonetic and/or grammatical errors may exist.
--- NOTE | 2021-08-27 09:50 | PCM.DC ---
Discharge Instructions Diet Discharge Diet: No restrictions Activity Discharge Activity: May Not Drive (while taking narcotic pain medications.) May shower in (days): 1 (only if incision is dry and without drainage. Do NOT soak/submerge in tub/pool/palumbo/stream/hot tub.)) Ice area for (Minutes): 20 (Every 1-2 hours while awake[address] place barrier between ice and skin.) Weight Bearing Status: Weight bearing as tolerated (With walker) Keep extremity elevated above heart level: Operative Extremity Dressing / Incision Call your doctor if your incision/area has: Continuous Slow Oozing, Sudden Increased Bleeding, Increased Pain/ Swelling, Increased Redness and Foul Smelling Discharge Call your doctor if you observe: Fever of 101 or Higher, Shortness of breath, Chest pain, Calf discomfort and Uncontrolled pain Remove Dressing in: 4 days (Okay to remove dressing on August 31, 2021) Additional Dressing/Incision Instructions:: Follow [facility] Post-op Instructions. Once postoperative dressing has been removed, only use gentle soap and water over the incision. Do not use any ointments, Neosporin, salves, alcohol pads over the incision for 6 weeks postoperatively. Do not submerge underwater for 6 weeks postoperatively. Once Mepilex dressing has been removed, please place ABD, washcloth, or 4 x 4 dressing along the medial incision between the skin fold to protect this area from moisture. This should be done for 4 weeks postoperatively. Continue with KALEB hose/elastic stockings for 2 weeks postoperatively. May remove at nighttime but needs to be placed back on the leg during the day. Do NOT use alcohol with narcotic pain medication. Do NOT make important decisions while taking narcotic medication. If you have problems with taking your medication (rash, itching, nausea, etc.) call the office at once. Follow Up Care Test Results: Test results from this visit will be discussed in further detail at your follow-up appointment, if applicable. Discharge Plan Admission Admit Date/Time: 08/26/21 06:36 Attending Provider: Osbaldo Palacio Primary Care Provider: Brendon Gonzalez Consulting Providers: Pritesh Fuentes Discharge Orders/Prescriptions Prescriptions: New acetaminophen 500 mg Tablet 1,000 mg PO Q8 Qty: 0 RF: 0 aspirin 81 mg Tablet,Chewable 81 mg PO 0800,1700 Qty: 0 RF: 0 doxycycline monohydrate 100 mg Capsule 100 mg PO BID 14 Days Qty: 28 RF: 0 oxycodone 5 mg Tablet 5 - 10 mg PO Q4H PRN PRN (Reason: Pain Score 4-10) 5 Days Qty: 42 RF: 0 sennosides-docusate sodium [Stool Softener-Stimulant Laxat] 8.6-50 mg Tablet 2 tab PO BID Qty: 20 RF: 0 Continued atenolol 100 MG tablet 100 mg PO QHS RF: 0 ascorbic acid (vitamin C) [Vitamin C] 500 MG tablet 1,000 mg PO DAILY@0800 RF: 0 pregabalin [Lyrica] 100 MG capsule 100 mg PO BID RF: 0 Allergy Relief (cetirizine) 10 MG capsule 10 mg PO DAILY RF: 0 multivitamin with folic acid [Thera] 1 TABLET tablet 1 tab PO DAILY RF: 0 Cholecalciferol (Vitamin D3) [Vitamin D3] 5,000 UNIT capsule 5,000 unit PO DAILY RF: 0 famotidine 20 mg Tablet 20 mg PO DAILY RF: 0 diphenhydramine-acetaminophen [Tylenol PM Extra Strength] 25-500 mg Tablet 1 tab PO QHS RF: 0 vitamin B complex Capsule 1 cap PO DAILY RF: 0 cranberry 1,000 mg Capsule 15,000 mg PO BID RF: 0 zinc 50 mg Capsule 50 mg PO DAILY RF: 0 amlodipine-olmesartan 5-40 mg Tablet 1 tab PO DAILY RF: 0 Myrbetriq 50 mg Tablet Extended Release 24 Hr 50 mg PO BID RF: 0 Discontinued acetaminophen [Mapap Arthritis Pain] 650 MG tablet extended release 650 mg PO DAILY RF: 0 aspirin [Aspir-81] 81 mg Tablet,Delayed Release (Dr/Ec) 81 mg PO DAILY RF: 0 Referrals / Follow Up: Physical,Therapy [Other] - 09/01/21 9:00 am Brendon Gonzalez MD [Primary Care Provider] - Brook Ta PA [PHYSICIAN LIVESTOCK CARETAKER] - 09/09/21 9:15 am Disposition Disposition (needs filled in before D/C Order can be placed): Home, Self Care
--- NOTE | 2021-08-27 10:00 | CASEMGMT ---
RENATO CORDOBA Face to Face with patient for initial transition planning/care coordination assessment. RN BERYL introduced self and role at [facility]. Patient sitting in chair, alert and oriented. Patient willing to participate in assessment and is able to answer all questions appropriately. Care providers, pharmacy, and demographics verified. Patient wishes to discharge home and is setup with outpatient therapy at [facility]. Patient states she has no further needs or concerns at this time. CM to follow for discharge planning needs that may arise. PCP: Carlos Specialists: Jer, urology; [facility] ortho; Cari, podiatry; Alison, pulmonology Preferred Pharmacy: [facility] Insurance: [facility] Prescription Benefit: yes Living Will/HPOA: yes LNOK: Living Arrangements: patient lives with in a single story home with 1 step to enter the home. Patient independent prior to surgery Transportation: DME/HHC: patient has walker, cane, shower chair, polar care, raised toilet, cpap and wheelchair at home. Patient is setup with [facility] for outpatient therapy starting 09/01 Disposition Plan: Patient to discharge home with outpatient therapy, family support, and follow-up plans in place. Michaela MADRID, RN, CM
--- NOTE | 2021-08-27 10:07 | CASEMGMT ---
RENATO CM in to complete BENÍTEZ form with patient. RN BERYL explained BENÍTEZ form to patient, patient voiced understanding. Patient signed BENÍTEZ form and placed in chart. Patient provided with copy of signed BENÍTEZ form. Patient had no further questions or concerns at this time.
[2021-08-27] MEDS: Losartan Potassium 100 MG Tablet PO (10:57)
[2021-08-27] MEDS: Cholecalciferol (Vit D3) 125 MCG CAPSULE (5,000 UNITS) PO (10:57)
[2021-08-27 12:00] VITALS: BP 121/62; PULSE 64; RESP 18; TEMP 36.9
== END 2021-08-27 14:37 | disposition home or self-care (01) ==
LOC: SDC 08:54 → MS3 08:54
PROVIDERS: Anesthesiology; Admitting Provider Specialist; PCP Family Medicine; Referring Provider Specialist; Visit Provider Specialist
PROC: (CPT 27284; principal; 2021-08-26 08:20)
DX: M16.12 Unilateral primary osteoarthritis, left hip (principal); M87.059 Idiopathic aseptic necrosis of unspecified femur; E66.01 Morbid (severe) obesity due to excess calories; Z68.42 Body mass index [BMI] 45.0-49.9, adult; K21.9 Gastro-esophageal reflux disease without esophagitis; J45.909 Unspecified asthma, uncomplicated; I10 Essential (primary) hypertension; G47.30 Sleep apnea, unspecified; N32.81 Overactive bladder; Z79.82 Long term (current) use of aspirin; Z79.899 Other long term (current) drug therapy; R06.02 Shortness of breath
CPT/HCPCS: 27130; 01214; 36415; 73501; 73502; 76000; 80048; 80076; 82962; 83036; 83735; 85025; 85027; 85610; 85730; 87081; 88305; 88311; 93005; 96361; 96365; 96366; 97110; 97116; 97162; 97166; 97530; 97535; 99218; 99251; C1776; J7120; G0378; G0463; J3475

== ENCOUNTER → 2021-10-23 | Outpatient (CLI) | payer MEDICARE, SELFPAY ==
--- NOTE | 2021-10-23 12:27 | BI_ITS ---
MAMMOGRAPHY - BILATERAL SCREENING REASON FOR EXAM: Female, 76 years old. Routine annual screening examination. PERTINENT HISTORY: Sisters with breast cancer. Mother with breast cancer. TECHNIQUE: Digital bilateral breast lázaro (3D mammographic acquisition) in the CC and MLO projections. 2-D mediolateral oblique (MLO) and craniocaudad (CC) views of both breasts were obtained. CAD: Full Field Digital Mammography with Computer Added Detection was performed. COMPARISON: Comparison is made with prior examination dated 08/28/2020 and 08/14/2019. FINDINGS: Breast Composition: There are scattered areas of fibroglandular density. There are no dominant masses or suspicious calcifications. Stable 1.3 cm x 1.1 cm ovoid nodule in the central medial aspect of the right breast. This was demonstrated to be a hypoechoic solid nodule on prior sonogram. No other significant abnormalities are identified. There has been no significant change since the prior study. BI/SCREENING MAMM (CAD), BILAT IMPRESSION: Stable bilateral screening mammogram. Yearly follow-up mammogram recommended. (A) ASSESSMENT CATEGORY: BIRADS Category 2: Benign. A letter regarding these results will be sent to the patient by the facility within 30 days. Approximately 10% of breast cancers are not detected by mammography. A normal mammogram should not delay biopsy of a clinically suspicious abnormality. [id number] Electronically Signed: Arron Alas MD at 14:13 EDT ,
== END | disposition home or self-care (01) ==
LOC: OPBI 12:24
PROVIDERS: PCP Family Medicine; Referring Provider Nurse Practitioner Family; Visit Provider Nurse Practitioner Family
DX: Z12.31 Encounter for screening mammogram for malignant neoplasm of breast (principal); Z80.3 Family history of malignant neoplasm of breast
CPT/HCPCS: 77067

== ENCOUNTER 2022-04-28 14:10 | Inpatient (IN) | payer MEDICARE, SELFPAY ==
[2022-04-28] VITALS (8 sets, daily range): BP systolic 105–190; BP diastolic 50–164; PULSE 77–94; RESP 16–34; TEMP 36.8–37.2; O2SAT 80–97; BMI 43.0; BMI 45.0
[2022-04-28] MEDS: 0.9% Normal Saline 1,000 ML 1000 ML IV ×2 (15:25→17:02)
[2022-04-28 15:29] LABS: Hematocrit 37.7 % (37-47); Hemoglobin 12.6 g/dL (12.0-15.0); Mean Corp Hgb Conc 33.4 g/dL (32-36); Mean Corpuscular Hgb 30.4 pg (27.0-32.0); Mean Corpuscular Volume 91.1 fL (81-99); Mean Platelet Vol. 10.4 fl (6.2-12.0); POSITIVE COUNT YES; POSITIVE DIFFERENTIAL YES; POSITIVE MORPHOLOGY YES; Platelet Count 315 K/mm3 (150-450); RBC Distribution Width CV 12.4 % (11.6-14.6); RBC Distribution Width SD 41.6 fl (35.1-43.9); Red Blood Count 4.14 M/mm3 (4.2-5.4)
[2022-04-28 15:46] LABS: Differential Indicated MANUAL DIFF; White Blood Count 30.5 K/mm3 (4.4-11.0)
[2022-04-28 15:57] LABS: ALB/GLOB Ratio 0.5 RATIO (0.9-2.4); AST(SGOT) 42 U/L (15-37); Alanine Aminotransfer ALT/SGPT 44 U/L (13-56); Albumin, Serum 2.5 g/dL (3.2-5.0); Alkaline Phosphatase 160 U/L (45-117); Anion Gap 10 (5-15); BUN 30 mg/dL (7-18); BUN/Creat Ratio 15.2 RATIO (10-20); Chloride 99 mmol/L (98-107); Creatinine, Serum 1.98 mg/dL (0.55-1.02); EST Glomerular Filtration Rate 26 mL/min (>60); Est Glom Filt Rate - Afr Amer 32 mL/min (>60); Estimated Creatinine Clearance 19.42 ml/min; Globulin 4.9 g/dL (2.2-4.2); Glucose 174 mg/dL (74-106); Potassium 4.3 mmol/L (3.5-5.1); Protein, Total 7.4 g/dL (6.4-8.2); Sodium Level 130 mmol/L (136-145)
--- NOTE | 2022-04-28 16:03 | EDS_ITS ---
HPI History of Present Illness Chief Complaint: Abn Labs Narrative Narrative: 76-year-old female presenting due to abnormal labs. Patient was seen by Dr. Randle in her office yesterday for pelvic infection. She had infection drained at that time and was started on amoxicillin. She was seen again today by Dr Randle in the office and was advised the infection does look improved but had high WBC and elevated creatinine. She was sent to the ED for CT abdomen/pelvis. Patient states overall she feels improved. Denies fever. She states the redness started approximately 5 days ago. Prior similar symptoms: No Recent Illness/Hospitalization: No PFSH PFS Medical History Alcohol use Arthritis Asthma Back pain Bladder disease CPAP (continuous positive airway pressure) dependence Easy bruising Gastric reflux History of edema History of pain when walking History of renal disease History of stress test Hx of fracture of lower leg Hypertension Leg cramps Non-smoker Post-menopausal Redness of skin Shortness of breath on exertion Wears glasses Wears hearing aid Home Medications ascorbic acid (vitamin C) 500 mg tablet (Vitamin C) 1,000 mg PO DAILY Supplement 02/26/15 [History Last Taken 04/28/22] cetirizine 10 mg capsule (Allergy Relief (cetirizine)) 10 mg PO DAILY Allergies 02/26/15 [History Last Taken 04/28/22] amlodipine 5 mg-olmesartan 40 mg tablet 1 tab PO DAILY blood pressure 08/12/21 [History Last Taken 04/28/22] famotidine 20 mg tablet 20 mg PO DAILY acid reflux 08/12/21 [History Last Taken 04/28/22] acetaminophen 500 mg tablet 500 mg PO BID pain 04/28/22 [History Last Taken 04/28/22] amoxicillin 875 mg-potassium clavulanate 125 mg tablet 1 tab PO BID ANTIBIOTIC 04/28/22 [History Last Taken 04/28/22 07:00] aspirin 81 mg tablet,delayed release 81 mg PO DAILY HEART HEALTH 04/28/22 [History Last Taken 04/28/22] atenolol 50 mg tablet 50 mg PO BID blood pressure 04/28/22 [History Last Taken 04/28/22] cholecalciferol (vitamin D3) 125 mcg (5,000 unit) tablet 125 mcg PO DAILY supplement 04/28/22 [History Last Taken 04/28/22] cranberry 500 mg capsule 1,500 mg PO DAILY supplement 04/28/22 [History Last Taken 04/28/22] ibuprofen 200 mg tablet 200 mg PO DAILY pain 04/28/22 [History Last Taken 04/28/22] bvshuranlklv-eguzbaba-pelcxr tablet (Multivitamin 50 Plus tablet) 1 tab PO DAILY supplement 04/28/22 [History Last Taken 04/28/22] oxycodone-acetaminophen 5 mg-325 mg tablet 1 tab PO Q8H PRN Pain 04/28/22 [History Last Taken 04/28/22 07:00] vibegron 75 mg tablet (Gemtesa) 75 mg PO DAILY OVERACTIVE BLADDER 04/28/22 [History Last Taken 04/28/22] Allergy/AdvReac Type Severity Reaction Status Date / Time Sulfa (Sulfonamide Allergy Rash Verified 04/28/22 14:13 Antibiotics) etodolac AdvReac KIDNEY Verified 04/28/22 14:13 ISSUES Surgical History (Updated 08/27/21 @ 09:46 by LUZ ELENA ColemanC) History of lumbar discectomy Hx of breast biopsy Hx of colonoscopy Hx of hysterectomy Hx of right knee surgery Hx of total knee arthroplasty Hx of total knee arthroplasty Hx of umbilical hernia repair Social History Smoking Status: Never smoker ROS ROS ED Constitutional Constitutional ED: Denies fever(s) ENT ENT ED: Denies rhinorrhea or sore throat Cardiovascular Cardiovascular: Denies chest pain or palpitations Respiratory/Chest Respiratory/Chest: Denies cough or dyspnea Gastrointestinal Gastrointestinal: Denies abdominal pain, diarrhea, nausea or vomiting Genitourinary Genitourinary ED: Denies dysuria Musculoskeletal Musculoskeletal: Denies myalgias Integumentary Reports other Details: erythema lower abdominal wall and genital area ; Denies rash Neurologic Neurologic: Denies headache(s) Psychiatric Psychiatric: Denies suicidal thoughts EXAM Physical Exam Const Vital Signs: 04/28/22 14:11 04/28/22 15:12 04/28/22 15:12 Temperature 98.9 F 99.0 F Temperature Source Oral Oral Pulse Rate 84 77 94 Respiratory Rate 16 24 H 20 H Respiratory Effort Respiratory Pattern Blood Pressure 105/55 L 117/57 L 117/57 L Blood Pressure Mean 71 77 77 Pulse Ox 96 94 80 Oxygen Delivery Method Room Air Room Air Room Air 04/28/22 15:26 04/28/22 16:00 04/28/22 16:00 Temperature 98.2 F Temperature Source Oral Pulse Rate 78 81 Respiratory Rate 17 23 H Respiratory Effort Short of Breath Respiratory Pattern Tachypnea Blood Pressure 124/61 H 128/64 H Blood Pressure Mean 82 85 Pulse Ox 97 96 Oxygen Delivery Method Room Air Room Air Positive well nourished and well developed General Appearance ED: well developed HEENT Reports normocephalic and head/scalp atraumatic Eyes PERRL and EOMs intact bilaterally Neck supple General: Negative for tenderness Chest Wall inspection of chest normal Resp normal respiratory effort and clear to auscultation bilaterally Cardio regular rate and regular rhythm GI non-tender and non-distended GI Narrative: erythema lower abdominal wall, erythema right labia. Incisions clean, dry, no drainage. Palpation: soft; Negative for guarding or rebound tenderness present no CVA tenderness Extremity normal to inspection Neuro oriented x3 Sensorium / Orientation: alert Psych mental status grossly normal MDM MDM MDM Narrative Medical decision making narrative: 76-year-old female presenting due to abnormal labs and pelvic infection. Recent I&D performed. Wounds actually improving but outpatient labs showed elevated white count and elevated creatinine. Blood cultures were sent. She was given vancomycin and Zosyn IV. She was given 30 cc/kg IV fluid bolus. CBC shows white count 30.5. Chemistries show sodium 130, BUN 30, creatinine 1.98. Previous creatinine 0.9. Glucose 174. Lactic acid 2.8. CT abdomen pelvis was obtained and shows cellulitis and phlegmonous changes within the fat of the right groin with probable lymphadenitis. No evidence for focal abscess. Urinalysis shows 10-25 white blood cells. Urine culture was sent. She remains normotensive. Discussed with Dr. Randle and she will see the patient in consultation. Discussed with hospitalist for admission. Lab Data Attestation: I reviewed the patient's lab results. Labs: Laboratory Results - last 24 hr 04/28/22 04/28/22 04/28/22 15:05 15:05 15:05 WBC 30.5 H* RBC 4.14 L Hgb 12.6 Hct 37.7 MCV 91.1 MCH 30.4 MCHC 33.4 RDW Std Deviation 41.6 RDW Coeff of Luis Felipe 12.4 Plt Count 315 MPV 10.4 Neut % (Auto) Not Reportable Absolute Neuts (auto) 26.8 H Absolute Lymphs (auto) 1.53 Total Counted 100 Neutrophils % (Manual) 74 H Band Neutrophils % 14 H Lymphocytes % (Manual) 5 L Monocytes % (Manual) 7 Diff Path Review May foll Platelet Estimate ADEQUATE RBC Morphology NORM C+C Sodium 130 L Potassium 4.3 Chloride 99 Carbon Dioxide 21.0 Anion Gap 10 BUN 30 H Creatinine 1.98 H Estim Creat Clear Calc 19.42 Est GFR (MDRD) Af Amer 32 L Est GFR (MDRD) Non-Af 26 L BUN/Creatinine Ratio 15.2 Glucose 174 H Lactic Acid 2.8 H* Calcium 9.0 Total Bilirubin 1.40 H AST 42 H ALT 44 Alkaline Phosphatase 160 H Total Protein 7.4 Albumin 2.5 L Globulin 4.9 H Albumin/Globulin Ratio 0.5 L Urine Color Urine Clarity Urine pH Ur Specific [place] Urine Protein Urine Glucose (UA) Urine Ketones Urine Occult Blood Urine Nitrite Urine Bilirubin Urine Urobilinogen Ur Leukocyte Esterase Urine RBC Urine WBC Ur Squamous Epith Cells Ur Transition Epith Cell Ur Renal Epithelial Cell Urine Bacteria Urine Mucus 04/28/22 17:10 WBC RBC Hgb Hct MCV MCH MCHC RDW Std Deviation RDW Coeff of Luis Felipe Plt Count MPV Neut % (Auto) Absolute Neuts (auto) Absolute Lymphs (auto) Total Counted Neutrophils % (Manual) Band Neutrophils % Lymphocytes % (Manual) Monocytes % (Manual) Diff Path Review Platelet Estimate RBC Morphology Sodium Potassium Chloride Carbon Dioxide Anion Gap BUN Creatinine Estim Creat Clear Calc Est GFR (MDRD) Af Amer Est GFR (MDRD) Non-Af BUN/Creatinine Ratio Glucose Lactic Acid Calcium Total Bilirubin AST ALT Alkaline Phosphatase Total Protein Albumin Globulin Albumin/Globulin Ratio Urine Color Shiela Urine Clarity Sl Cloudy Urine pH 5.0 Ur Specific [place] 1.020 Urine Protein 15 H Urine Glucose (UA) NEGATIVE Urine Ketones Negative Urine Occult Blood 250 Urine Nitrite Negative Urine Bilirubin Negative Urine Urobilinogen 4 H Ur Leukocyte Esterase 100 H Urine RBC 10-25 SEEN Urine WBC 10-25 SEEN Ur Squamous Epith Cells 0-5 SEEN Ur Transition Epith Cell 0 SEEN Ur Renal Epithelial Cell 0-5 SEEN Urine Bacteria 0 SEEN Urine Mucus 0 SEEN Radiography Diagnostic Testing: Clinical Impression(s) from Imaging Studies Abdomen/Pelvis CT 04/28/22 16:03 IMPRESSION: Cellulitis and phlegmonous changes within the fat of the right groin with probable lymphadenitis. No evidence for focal abscess Cholelithiasis without evidence for acute cholecystitis.. Other findings as described above. Electronically Signed: Eugene Hagan MD at 16:57 EST Reading Location ID and State: [facility] / [place] , Service support , Discharge Plan Triage Chief Complaint: Abn Labs ED Provider: Alis Templeton Dx/Rx/DC Orders Clinical Impression: Cellulitis, Leukocytosis, JOHN (acute kidney injury), Sepsis Prescriptions: No Action ascorbic acid (vitamin C) [Vitamin C] 500 MG tablet 1,000 mg PO DAILY Allergy Relief (cetirizine) 10 MG capsule 10 mg PO DAILY famotidine 20 mg Tablet 20 mg PO DAILY amlodipine-olmesartan 5-40 mg Tablet 1 tab PO DAILY aspirin [Aspirin Low-Strength] 81 mg Tablet,Delayed Release (Dr/Ec) 81 mg PO DAILY oxycodone-acetaminophen 5-325 mg tablet 1 tab PO Q8H PRN (Reason: Pain) ibuprofen 200 mg Tablet 200 mg PO DAILY atenolol 50 mg Tablet 50 mg PO BID cranberry 500 mg Capsule 1,500 mg PO DAILY amoxicillin-pot clavulanate 875-125 mg tablet 1 tab PO BID Multivitamin 50 Plus Tablet 1 tab PO DAILY cholecalciferol (vitamin D3) 125 mcg (5,000 unit) Tablet 125 mcg PO DAILY acetaminophen 500 mg tablet 500 mg PO BID Gemtesa 75 mg Tablet 75 mg PO DAILY Primary Care Provider: Brendon Gonzalez Referrals: Brendon Gonzalez MD [Primary Care Provider] - Disposition Disposition: Acute Care Hospital [facility]
--- NOTE | 2022-04-28 16:03 | CT_ITS ---
STUDY: CT ABDOMEN AND PELVIS WITHOUT CONTRAST REASON FOR EXAM: Female, 76 years old. pelvic abscess/celluitis RADIATION DOSAGE (If Supplied By Facility): CTDIvol = ( 28.08 ) mGy, DLP = ( 1364.59 ) mGycm TECHNIQUE: Transaxial images were obtained from the dome of the diaphragm to the symphysis pubis without oral contrast, and without intravenous contrast. Sagittal and coronal images were reconstructed. Individualized dose optimization techniques were used for this CT. COMPARISON: March 01, 2020 FINDINGS: Mild atelectasis within the dependent portion of the right lower lobe.. Tiny left pleural effusion and left lower lobe atelectasis. The heart is enlarged. There is no coronary artery calcification Postsurgical changes along the inferior margin of the right lobe of the liver. There is a cyst in the posterior segment of the right lobe.. Multiple tiny calcified gallstones without evidence for acute cholecystitis.. Normal spleen. Normal pancreas. Normal bilateral adrenal glands. Normal right kidney. Normal left kidney. Normal visualized stomach. There is a duodenal diverticulum at the junction of the post bulbar and transverse segments. There is no evidence for small bowel obstruction.. Diverticular changes of the descending and sigmoid colon without evidence for acute diverticulitis.. No evidence for acute appendicitis.. Mild atherosclerotic changes of the aorta without evidence for aneurysm. Normal inferior vena cava. Normal retroperitoneum. Incompletely distended thick walled bladder likely of no significance. Uterus not visualized consistent with hysterectomy There is diffuse cellulitis and phlegmonous changes within the fat in the right groin extending along the medial aspect of the thigh without well-defined abscess.. Mild bilateral inguinal adenopathy most likely benign Lumbar spine demonstrates advanced spondylosis. Grade 1 retrolisthesis at L3-4 and spondylolisthesis at L4-5 CT/Abdomen/Pelvis without Cont IMPRESSION: Cellulitis and phlegmonous changes within the fat of the right groin with probable lymphadenitis. No evidence for focal abscess Cholelithiasis without evidence for acute cholecystitis.. Other findings as described above. Electronically Signed: Eugene Hagan MD at 16:57 EST ,
[2022-04-28 16:16] LABS: Lymphocyte 5 % (19-41); Monocyte 7 % (0-10); Neutrophil-Band 14 % (0-5); Neutrophil-Segmented 74 % (47-70); Platelet Estimate ADEQUATE (ADEQ); Red Cell Morphology NORM C+C NORMAL (NORM C&C); Total Cells Counted 100 (MANUAL DIFF)
[2022-04-28 16:17] LABS: Absolute Lymphocyte Count 1.53 X10^3/uL (0.83-4.51); Absolute Neutrophil Count 26.8 X10^3/uL (2.0-7.7)
[2022-04-28 16:22] LABS: Lactic Acid 2.8 mmol/L (0.4-1.9)
[2022-04-28 17:13] LABS: Bacteria 0 SEEN /hpf (None Seen); Mucous, Urine 0 SEEN /hpf (<or=2+)
[2022-04-28 17:24] LABS: Color, Urine Amber (Yellow); Glucose, Dipstick NEGATIVE (Normal); Urine Bilirubin Dipstick Negative (Negative); Urine Clarity Sl Cloudy (Clear)
[2022-04-28 17:25] LABS: Ketone-Dipstick Negative (Negative); Nitrite-Dipstick Negative (Negative); Protein-Dipstick 15 mg/dl (Negative); Urine Urobilinogen 4 mg/dl (Normal)
[2022-04-28 17:26] LABS: Leukocyte Esterase-Dipstick 100 /ul (Negative); Occult Blood-Urine 250 /ul (Negative)
[2022-04-28 17:27] LABS: Red Blood Cells-Urine 10-25 SEEN /hpf (0-5)
[2022-04-28 17:28] LABS: Squamous Epithelial Cells - UA 0-5 SEEN /hpf (5-10); Transitional Epithelial - Ur 0 SEEN /hpf (0-5)
[2022-04-28 17:29] LABS: Renal Epithelial Cells 0-5 SEEN /hpf (0-5); White Blood Cells 10-25 SEEN /hpf (0-5)
--- NOTE | 2022-04-28 17:56 | HP.PCM.HOS_ITS ---
HPI - General General Date of Admission: 04/28/22 Date of Service: 04/28/22 Chief Complaint: abnormal labs HPI Narrative MU GARDNER, is a 76 F with a PMh as outlined who presents via the ED on 04/28/2022 with a complaint of abnormal labs. Patient had gone to see her urologist the day before this admission and says she was noted to have some welts in her pelvic region that were large and needed to be lanced. The urologist did this and placed on p.o. amoxicillin. She followed up with the urologist today and she was told that the site of the infection had improved significantly. The urologist did labs and a white cell count was noted to be markedly elevated at around 25 so she was sent emergently to the ED. Patient denied any fever or chills, any cough but admitted to shortness of breath and some wheezing which she thought was due to her sleep apnea. She denies any chest pain, palpitations, dizziness, nausea vomiting or diarrhea. She denies any burning with urination. Review of systems otherwise negative. She denies any recent long distance travel or any swelling in her lower extremities. Vitals in the ED were blood pressure of 113/52, pulse rate of 88, respiratory of 35 she was saturating at 92% on room air. CBC showed WBC of 30.5 hemoglobin of 12.6 as well as platelets of 315. White cell count differential showed neutrophils of 74% with band neutrophils of 14% and lymphocytes of 5%. Chemistry showed sodium of 130 with creatinine of 1.98 and lactic acid of 2.8. Total bilirubin was 1.4 and ALP was 160. CT of the abdomen and pelvis showed cellulitis and phlegmonous changes within the fat of the right groin with possible lymph adenitis with no evidence of focal abscess, cholelithiasis without evidence of acute cholecystitis. She is being admitted to be managed for sepsis likely due to cellulitis of the suprapubic area and groin. [facility] Medical History (Updated 04/29/22 @ 08:[address] Fara Randle MD) Alcohol use Arthritis Asthma Back pain Bladder disease CPAP (continuous positive airway pressure) dependence Easy bruising Gastric reflux History of edema History of pain when walking History of renal disease History of stress test Hx of fracture of lower leg Hypertension Leg cramps Non-smoker Post-menopausal Redness of skin Shortness of breath on exertion Soft tissue abscess of inguinal region Wears glasses Wears hearing aid Home Medications ascorbic acid (vitamin C) 500 mg tablet (Vitamin C) 1,000 mg PO DAILY Supplement 02/26/15 [History Last Taken 04/28/22] cetirizine 10 mg capsule (Allergy Relief (cetirizine)) 10 mg PO DAILY Allergies 02/26/15 [History Last Taken 04/28/22] amlodipine 5 mg-olmesartan 40 mg tablet 1 tab PO DAILY blood pressure 08/12/21 [History Last Taken 04/28/22] famotidine 20 mg tablet 20 mg PO DAILY acid reflux 08/12/21 [History Last Taken 04/28/22] acetaminophen 500 mg tablet 500 mg PO BID pain 04/28/22 [History Last Taken 04/28/22] amoxicillin 875 mg-potassium clavulanate 125 mg tablet 1 tab PO BID ANTIBIOTIC 04/28/22 [History Last Taken 04/28/22 07:00] aspirin 81 mg tablet,delayed release 81 mg PO DAILY HEART HEALTH 04/28/22 [History Last Taken 04/28/22] atenolol 50 mg tablet 50 mg PO BID blood pressure 04/28/22 [History Last Taken 04/28/22] cholecalciferol (vitamin D3) 125 mcg (5,000 unit) tablet 125 mcg PO DAILY supplement 04/28/22 [History Last Taken 04/28/22] cranberry 500 mg capsule 1,500 mg PO DAILY supplement 04/28/22 [History Last Taken 04/28/22] ibuprofen 200 mg tablet 200 mg PO DAILY pain 04/28/22 [History Last Taken 04/28] mjzxdatifjjc-txeqnlxj-knsfro tablet (Multivitamin 50 Plus tablet) 1 tab PO DAILY supplement 04/28/22 [History Last Taken 04/28/22] oxycodone-acetaminophen 5 mg-325 mg tablet 1 tab PO Q8H PRN Pain 04/28/22 [History Last Taken 04/28/22 07:00] vibegron 75 mg tablet (Gemtesa) 75 mg PO DAILY OVERACTIVE BLADDER 04/28/22 [History Last Taken 04/28/22] Allergy/AdvReac Type Severity Reaction Status Date / Time Sulfa (Sulfonamide Allergy Rash Verified 04/28/22 14:13 Antibiotics) etodolac AdvReac KIDNEY Verified 04/28/22 14:13 ISSUES Surgical History History of lumbar discectomy Hx of breast biopsy Hx of colonoscopy Hx of hysterectomy Hx of right knee surgery Hx of total knee arthroplasty Hx of total knee arthroplasty Hx of umbilical hernia repair Social History Smoking Status: Never smoker ROS Review of Systems ROS Unobtainable: Denies due to encephalopathy Constitutional Constitutional: Reports chills; Denies anorexia, fatigue, fever(s), malaise or weakness Eyes Eyes: Denies change in vision ENT HEENT: Denies dysphagia, headache(s), nasal congestion, sinus pressure or sore throat Respiratory/Chest Respiratory/Chest: Reports dyspnea, shortness of breath at rest, shortness of breath with exertion and wheezing; Denies cough, excessive phlegm production, hemoptysis or productive cough Gastrointestinal Gastrointestinal: Denies abdominal pain, constipation, diarrhea, nausea or vomiting Genitourinary Genitourinary: Denies burning urination, dysuria, nocturia or urinary frequency Musculoskeletal Musculoskeletal: Denies arthralgias or back pain Neurologic Neurologic: Denies confusion, dizziness, focal weakness, headache(s), numbness, seizure-like activity, seizures or syncope Psychiatric Psychiatric: Denies anxiety or depression Endocrine Endocrinology: Denies change in body appearance Hematologic/Lymphatic Hematologic/Lymphatic: Denies anemia Vital Signs Vital Signs Vital Signs: 04/28/22 14:11 04/28/22 15:12 04/28/22 15:12 Temperature 98.9 F 99.0 F Temperature Source Oral Oral Pulse Rate 84 77 94 Respiratory Rate 16 24 H 20 H Respiratory Effort Respiratory Pattern Blood Pressure 105/55 L 117/57 L 117/57 L Blood Pressure Mean 71 77 77 Pulse Ox 96 94 80 Oxygen Delivery Method Room Air Room Air Room Air 04/28/22 15:26 04/28/22 16:00 04/28/22 16:00 Temperature 98.2 F Temperature Source Oral Pulse Rate 78 81 Respiratory Rate 17 23 H Respiratory Effort Short of Breath Respiratory Pattern Tachypnea Blood Pressure 124/61 H 128/64 H Blood Pressure Mean 82 85 Pulse Ox 97 96 Oxygen Delivery Method Room Air Room Air Weight Weight: 235 lb Body Mass Index (BMI) 43.0 Physical Exam Const alert, oriented x3 and no apparent distress Constitutional Narrative: morbid obesity General Appearance: cooperative HEENT normocephalic, head/scalp atraumatic, hearing grossly normal bilaterally and moist oral mucous membranes Mouth: oral and palatal mucosa normal Eyes PERRL, EOMs intact bilaterally and conjunctivae normal Neck no lymphadenopathy and supple Resp Resp Narrative: diminished breath sounds bibasally, mild wheezing. No crackles. On room air. tachypneic Cardio regular rate, regular rhythm, S1 normal heart sound, S2 normal heart sound and no murmurs GI normal to inspection, nondistended, normoactive bowel sounds Extremity normal to inspection, full ROM and no clubbing, cyanosis or edema Neuro oriented x3, CN's II-XII intact bilaterally, moves all extremities and no focal motor deficits Sensorium / Orientation: awake and alert Motor Exam: strength 5/5 throughout Psych affect normal Results Lab / Micro Data Result Diagrams: 04/29/22 05:45 04/29/22 05:45 Labs: Laboratory Results - last 24 hr 04/28/22 15:05: WBC 30.5 H*, RBC 4.14 L, Hgb 12.6, Hct 37.7, MCV 91.1, MCH 30.4, MCHC 33.4, RDW Std Deviation 41.6, RDW Coeff of Luis Felipe 12.4, Plt Count 315, MPV 10.4, Neut % (Auto) Not Reportable, Absolute Neuts (auto) 26.8 H, Absolute Lymphs (auto) 1.53, Total Counted 100, Neutrophils % (Manual) 74 H, Band Neutr ophils % 14 H, Lymphocytes % (Manual) 5 L, Monocytes % (Manual) 7, Diff Path Review August, Platelet Estimate ADEQUATE, RBC Morphology NORM C+C 04/28/22 15:05: Sodium 130 L, Potassium 4.3, Chloride 99, Carbon Dioxide 21.0, Anion Gap 10, BUN 30 H, Creatinine 1.98 H, Estim Creat Clear Calc 19.42, Est GFR (MDRD) Af Amer 32 L, Est GFR (MDRD) Non-Af 26 L, BUN/Creatinine Ratio 15.2, Glucose 174 H, Calcium 9.0, Total Bilirubin 1.40 H, AST 42 H, ALT 44, Alkaline Phosphatase 160 H, Total Protein 7.4, Albumin 2.5 L, Globulin 4.9 H, Albumin/Globulin Ratio 0.5 L 04/28/22 15:05: Lactic Acid 2.8 H* 04/28/22 17:10: Urine Color Sheila, Urine Clarity Sl Cloudy, Urine pH 5.0, Ur Specific [place] 1.020, Urine Protein 15 H, Urine Glucose (UA) NEGATIVE, Urine Ketones Negative, Urine Occult Blood 250, Urine Nitrite Negative, Urine Bilirubin Negative, Urine Urobilinogen 4 H, Ur Leukocyte Esterase 100 H, Urine RBC 10-25 SEEN, Urine WBC 10-25 SEEN, Ur Squamous Epith Cells 0-5 SEEN, Ur Transition Epith Cell 0 SEEN, Ur Renal Epithelial Cell 0-5 SEEN, Urine Bacteria 0 SEEN, Urine Mucus 0 SEEN Radiology Impression Abdomen/Pelvis CT 04/28/22 16:03 IMPRESSION: Cellulitis and phlegmonous changes within the fat of the right groin with probable lymphadenitis. No evidence for focal abscess Cholelithiasis without evidence for acute cholecystitis.. Other findings as described above. Electronically Signed: Eugene Hagan MD at 16:57 EST Reading Location ID and State: [facility] / [place] , Service support , Assessment & Plan Assessment/Plan (1) Cellulitis: (2) JOHN (acute kidney injury): (3) Sepsis: PLAN: Plan #Sepsis due to cellulitis of the abdominal wall * admit to PCU * wbc is 30.5, with neutrophil predominance * CT abdomen and pelvis showed cellulitis and phlegmonous changes within the fat of the right groin with probable lymphadenitis with no evidence of focal abscess. * wbc was 25 yesterday * she is tachypneic, tachycardic and has elevated liver enzymes and lactic acid. She also has evidence of end organ damage due to elevated Cr. * was placed on amoxicillin on outpatient basis * started on IV vancomycin and zosyn in [facility] ED; will continue * get blood cultures * hydrate with IVF NS ~ 150cc/hr #JOHN * Cr is 1.98; was 1.81 yesterday and 0.9 in august 2021 * get urine urea urine creatinine check FeUrea * check urine sodium * hydrate gently with IVF * Insert Lai catheter. Get renal USG * monitor urine output * #Lactic acidosis: likely due to sepsis. WIll hydrate with IVF and trend. #Shortness of breath * Patient is short of breath and wheezing. She denies any history of asthma or COPD but does admit to sleep apnea * Will get chest x-ray today and check BNP * Breathing treatments of bronchodilators. * #Obstructive sleep apnea: On CPAP nightly. To bring his CPAP from home. #Hypertension: Hold olmesartan due to JOHN. Continue amlodipine. IV hydralazine as needed. Also on atenolol. #History of overactive bladder: On Vibergron DVT prophylaxis: lovenox, renally dosed CODE STATUS: Full code * Patient counseled extensively about different types of CODE STATUS including full code, DNR CCA and DNR CCA. Patient elects to be full code. * Total [id number] time 16 minutes. Charges/Coding Visit Charges Inpatient E&M: 12732 Init Hosp L3 Procedures Hospitalists Procedures: 11197 Advncd Care Plan 30 Min
--- NOTE | 2022-04-28 18:04 | ED.RN ---
PT NOTED TO BE MORE SHORT OF BREATH THAN ON ARRIVAL TO ED, SHE STATES THIS HAS BEEN ONGOING FOR APPROX 1 WEEK AND SHE USES CPAP AT NIGHTTIME AND THAT HELPS. DR. LYMAN AWARE OF PATIENT BEING MORE TACHYPNEIC AND HAVING TO CLEAR THROAT OCCASIONALLY.
--- NOTE | 2022-04-28 18:28 | ED.RN ---
Addendum entered by Yuli Becerril 04/28/22 18:29: AT TIME OF STOPPING, PATIENT HAD RECEIVED APPROX 1500ML OF FLUID, FLUID PUT AT KVO. Original Note: DR LYMAN REQUESTED FURTHER FLUIDS BE STOPPED AND PATIENT TO NOT RECEIVE THE 3RD NS BOLUS OF 1000 DUE TO PATIENT BECOMING TACHYPNEIC AND FURTHER SHORT OF BREATH.
[2022-04-28] MEDS: Ipratropium/Albuterol Sulfate 3 ML AMPUL.NEB INHALATION (18:38)
--- NOTE | 2022-04-28 19:10 | RAD_ITS ---
STUDY: X-RAY CHEST REASON FOR EXAM: Female, 76 years old. shortness of breath TECHNIQUE: AP portable COMPARISON: None. FINDINGS: There is a small left pleural effusion and left lower lobe atelectasis or infiltrate. Normal size heart. Normal mediastinum and micha. Normal visualized pulmonary arteries. Normal visualized aortic arch and descending thoracic aorta. Dorsal spine and shoulders demonstrate degenerative change. Normal visualized ribs, and clavicles. There is no demonstrated abnormality of the visualized soft tissue structures of the upper abdomen. RAD/Chest 1 View (Portable) IMPRESSION: Small left pleural effusion and left lower lobe atelectasis or infiltrate. Electronically Signed: Eugene Hagan MD at 22:09 EST ,
[2022-04-28 19:22] LABS: Reflex Lactate? Y
[2022-04-28 19:29] LABS: BNP,B-Type NATRIURETIC PEPTIDE 268.4 pg/mL (0-100)
[2022-04-28] MEDS: Acetaminophen 325 MG Tablet 650 MG PO (19:43)
[2022-04-28] MEDS: Atenolol 50 MG Tablet PO (19:43)
[2022-04-28] MEDS: oxyCODONE 5 MG Tablet PO (19:43)
--- NOTE | 2022-04-28 19:47 | PCM.RX.CS ---
Consult Pharmacy has been consulted to manage selected antiobiotic: Vancomycin Type of Consult: New start Suspected Infection: Skin/Soft tissue Labs: Sodium 130 mmol/L (136-145) L 04/28/22 15:05 Potassium 4.3 mmol/L (3.5-5.1) 04/28/22 15:05 Chloride 99 mmol/L (98-107) 04/28/22 15:05 Carbon Dioxide 21.0 mmol/L (21.0-32.0) 04/28/22 15:05 Anion Gap 10 (5-15) 04/28/22 15:05 BUN 30 mg/dL (7-18) H 04/28/22 15:05 Creatinine 1.98 mg/dL (0.55-1.02) H 04/28/22 15:05 Est GFR (MDRD) Af Amer 32 mL/min (>60) L 04/28/22 15:05 Est GFR (MDRD) Non-Af 26 mL/min (>60) L 04/28/22 15:05 BUN/Creatinine Ratio 15.2 RATIO (10-20) 04/28/22 15:05 Glucose 174 mg/dL (74-106) H 04/28/22 15:05 Goal Trough: 15-20 mcg/mL Pharmacy Plan for Drug Dosing: NEW START IV VANCOMYCIN Consulting Physician: Dr. Barbosa Indication: SSTI Goal Trough: 15-20 SrCr: 1.98 CrCl: 29 mL/min (using AdjBW) Comments: Patient had initial dose in ED 1500mg IV x1 administered 04/28/22 @1700 Vancomycin Dose: 1250mg IV Q24hr to start 04/29/22 @1700 Pending Level: 04/30/22 @1630, prior to 3rd total dose per protocol Pharmacy Service will continue to monitor and adjust dosing as required.
--- NOTE | 2022-04-28 20:20 | NURSING ---
This Rn entered pt room an section forest fire warden was called by [place]. Pt being bagged from resp. Pt lethargic. said pt was shaking all over. Dr Ozuna arrived. interviewed and staff. Pt taken to ct of head. Pt returned. Pt remains lethargic.
[2022-04-28 20:36] LABS: Troponin-I HS 9 pg/mL (3.0-54.0)
[2022-04-28 20:53] LABS: Lactic Acid 2.5 mmol/L (0.4-1.9)
[2022-04-28 22:57] LABS: Troponin-I HS 10 pg/mL (3.0-54.0)
[2022-04-29 02:20] LABS: Troponin-I HS 9 pg/mL (3.0-54.0)
[2022-04-29 03:00] VITALS: BP 110/55; PULSE 86; RESP 18; TEMP 36.9; O2SAT 94
--- NOTE | 2022-04-29 03:41 | CPS ---
Pt has her home cpap unit on.
[2022-04-29 06:13] LABS: Absolute Neutrophil Count 16.3 X10^3/uL (2.0-7.7); Basophil# 0.06 X10^3/uL; Basophil% 0.3 % (0-1); Eosinophils% 0.5 % (0-5); Hematocrit 35.4 % (37-47); Hemoglobin 10.5 g/dL (12.0-15.0); Lymphocyte % 6.1 % (19-41); Mean Corp Hgb Conc 29.7 g/dL (32-36); Mean Corpuscular Hgb 30.4 pg (27.0-32.0); Mean Corpuscular Volume 102.6 fL (81-99); Mean Platelet Vol. 10.1 fl (6.2-12.0); Monocyte# 1.52 X10^3/uL; Monocyte% 7.7 % (0-10); NRBC Flagged by Analyzer 0 % (0-5); Neutrophil # 16.33 X10^3/uL (2.7-7.7); Neutrophil % 83.2 % (47-70); POSITIVE DIFFERENTIAL YES; POSITIVE MORPHOLOGY YES; Platelet Count 205 K/mm3 (150-450); RBC Distribution Width CV 13.2 % (11.6-14.6); RBC Distribution Width SD 49.9 fl (35.1-43.9); Red Blood Count 3.45 M/mm3 (4.2-5.4); White Blood Count 19.6 K/mm3 (4.4-11.0)
[2022-04-29 06:25] LABS: Differential Indicated SCAN CRITERIA MET
[2022-04-29 07:03] LABS: ALB/GLOB Ratio 0.4 RATIO (0.9-2.4); AST(SGOT) 27 U/L (15-37); Alanine Aminotransfer ALT/SGPT 31 U/L (13-56); Albumin, Serum 1.8 g/dL (3.2-5.0); Alkaline Phosphatase 134 U/L (45-117); Anion Gap 12 (5-15); BUN 23 mg/dL (7-18); BUN/Creat Ratio 20.9 RATIO (10-20); Calcium,Total 8.1 mg/dL (8.5-10.1); Chloride 105 mmol/L (98-107); EST Glomerular Filtration Rate 51 mL/min (>60); Est Glom Filt Rate - Afr Amer 62 mL/min (>60); Estimated Creatinine Clearance 34.95 ml/min; Globulin 4.1 g/dL (2.2-4.2); Glucose 89 mg/dL (74-106); Potassium 3.6 mmol/L (3.5-5.1); Protein, Total 5.9 g/dL (6.4-8.2); Sodium Level 133 mmol/L (136-145)
--- NOTE | 2022-04-29 07:37 | PN.HOSP_ITS ---
Subjective Subjective This is a 76-year-old female who was admitted yesterday afternoon after presenting to the emergency department with abnormal labs. She evidently had found some abscess in her pelvic region that were large and required lancing which was done by her urologist. She was placed on p.o. amoxicillin following this. She followed up with the urologist and was told the site of the infection had markedly improved however a CBC was obtained and her white count was found to be markedly abnormal to 25,000 so she was sent to the emergency department. Vital signs on presentation were unremarkable other than respiratory rate of 35 and oxygen saturations at 92% on room air. Her CBC showed marked leukocytosis with a left shift and bandemia. She had a lactic acid of 2.8 and her serum creatinine was markedly elevated above her baseline of 1.0-1.[address] of the abdomen pelvis was performed and showed cellulitis and phlegmonous changes within the fat of the right groin and probable lymphadenitis with no focal abscess and cholelithiasis. She met criteria for sepsis diagnosis due to right inguinal cellulitis she was initiated on vancomycin and Zosyn and cultures were obtained. Sepsis diagnosis was met with JOHN, lactic acidosis, tachypnea, tachycardia, transaminitis and a source of infection. I evaluated her on the floor in follow-up for the above. This morning she is complaining of some shortness of breath which she states developed yesterday. She complains of associated nasal congestion and some intermittent cough that is nonproductive. She states her inguinal/groin area feels better overall. Objective Data Objective Data Vital Signs: Vital Signs Temp Pulse Resp BP Pulse Ox O2 Del Method 98.4 F 86 18 110/55 L 94 Room Air 04/29/22 03:00 04/29/22 03:00 04/29/22 03:00 04/29/22 03:00 04/29/22 03:00 04/29/22 03:00 Oxygen Delivery Method Room Air Weight: 111.6 kg Body Mass Index (BMI) 45.0 Intake & Output: Intake and Output for Last 24 Hours 04/27/22 04/28/22 04/29/22 23:59 23:59 23:59 Intake Total 3200 / 3200 Balance 3200 / 3200 Lab / Micro Data Result Diagrams: 04/29/22 05:45 04/29/22 05:45 Labs: Laboratory Results - last 24 hr 04/28/22 15:05: WBC 30.5 H*, RBC 4.14 L, Hgb 12.6, Hct 37.7, MCV 91.1, MCH 30.4, MCHC 33.4, RDW Std Deviation 41.6, RDW Coeff of Luis Felipe 12.4, Plt Count 315, MPV 10.4, Neut % (Auto) Not Reportable, Absolute Neuts (auto) 26.8 H, Absolute Lymphs (auto) 1.53, Total Counted 100, Neutrophils % (Manual) 74 H, Band Neutrophils % 14 H, Lymphocytes % (Manual) 5 L, Monocytes % (Manual) 7, Diff Path Review August, Platelet Estimate ADEQUATE, RBC Morphology NORM C+C 04/28/22 15:05: Sodium 130 L, Potassium 4.3, Chloride 99, Carbon Dioxide 21.0, Anion Gap 10, BUN 30 H, Creatinine 1.98 H, Estim Creat Clear Calc 19.42, Est GFR (MDRD) Af Amer 32 L, Est GFR (MDRD) Non-Af 26 L, BUN/Creatinine Ratio 15.2, Glucose 174 H, Calcium 9.0, Total Bilirubin 1.40 H, AST 42 H, ALT 44, Alkaline Phosphatase 160 H, Total Protein 7.4, Albumin 2.5 L, Globulin 4.9 H, Albumin/Globulin Ratio 0.5 L 04/28/22 15:05: Lactic Acid 2.8 H* 04/28/22 15:05: B-Natriuretic Peptide 268.4 H 04/28/22 17:10: Urine Color Sheila, Urine Clarity Sl Cloudy, Urine pH 5.0, Ur Specific [place] 1.020, Urine Protein 15 H, Urine Glucose (UA) NEGATIVE, Urine Ketones Negative, Urine Occult Blood 250, Urine Nitrite Negative, Urine Bilirubin Negative, Urine Urobilinogen 4 H, Ur Leukocyte Esterase 100 H, Urine RBC 10-25 SEEN, Urine WBC 10-25 SEEN, Ur Squamous Epith Cells 0-5 SEEN, Ur Transition Epith Cell 0 SEEN, Ur Renal Epithelial Cell 0-5 SEEN, Urine Bacteria 0 SEEN, Urine Mucus 0 SEEN 04/28/22 19:45: Lactic Acid 2.5 H* 04/28/22 19:45: Troponin I High Sens 9 04/28/22 22:15: Troponin I High Sens 10 04/29/22 01:50: Troponin I High Sens 9 04/29/22 05:45: WBC 19.6 H, RBC 3.45 L, Hgb 10.5 L, Hct 35.4 L, MCV 102.6 H D, MCH 30.4, MCHC 29.7 L D, RDW Std Deviation 49.9 H, RDW Coeff of Luis Felipe 13.2, Plt Count 205, MPV 10.1, Immature Gran % (Auto) 2.200 H, Neut % (Auto) 83.2 H, Lymph % (Auto) 6.1 L, Dixon % (Auto) 7.7, Eos % (Auto) 0.5, Baso % (Auto) 0.3, Absolute Neuts (auto) 16.3 H, Absolute Lymphs (auto) 1.20, Nucleated RBC % 0, Diff Path Review August04/29/22 05:45: Sodium 133 L, Potassium 3.6, Chloride 105, Carbon Dioxide 16.0 L , Anion Gap 12, BUN 23 H, Creatinine 1.10 H, Estim Creat Clear Calc 34.95, Est GFR (MDRD) Af Amer 62, Est GFR (MDRD) Non-Af 51 L, BUN/Creatinine Ratio 20.9 H, Glucose 89, Calcium 8.1 L, Total Bilirubin 0.90, AST 27, ALT 31, Alkaline Phosphatase 134 H, Total Protein 5.9 L, Albumin 1.8 L, Globulin 4.1, Albumin/Globulin Ratio 0.4 L Radiography Diagnostic Testing: Radiology Impression Abdomen/Pelvis CT 04/28/22 16:03 IMPRESSION: Cellulitis and phlegmonous changes within the fat of the right groin with probable lymphadenitis. No evidence for focal abscess Cholelithiasis without evidence for acute cholecystitis.. Other findings as described above. Electronically Signed: Eugene Hagan MD at 16:57 EST Reading Location ID and State: [facility] / [place] , Service support , Chest X-Ray 04/28/22 19:10 IMPRESSION: Small left pleural effusion and left lower lobe atelectasis or infiltrate. Electronically Signed: Eugene Hagan MD at 22:09 EST Reading Location ID and State: [address] [place] [address] , Service support , Physical Exam Const alert, oriented x3, no apparent distress and well nourished Constitutional Narrative: Super morbidly obese white female sitting up in a chair at the bedside, appears comfortable, having some tachypnea but no dyspnea on conversation, also sounds congested HEENT head/scalp atraumatic and moist oral mucous membranes HEENT Narrative: Mallampati 3-4, no thrush Eyes PERRL, EOMs intact bilaterally and conjunctivae normal Eyes Narrative: No scleral icterus Neck no lymphadenopathy and supple Neck Narrative: Neck is short and thick, trachea midline, no thyroid enlargement Resp no retractions and no use of accessory muscles Resp Narrative: Tachypnea, diffusely diminished but clear at this time Auscultation: Negative for crackles, rhonchi or wheezes Cardio regular rate, regular rhythm, S1 normal heart sound, S2 normal heart sound, no murmurs, no rub, no gallops and no clicks GI normal to inspection, nondistended, normoactive bowel sounds and soft to palpation GI Narrative: Large protuberant abdomen Extremity normal to inspection and no clubbing, cyanosis or edema Extremity Narrative: 2+ pedal pulses bilateral lower extremity Skin Skin Narrative: Erythema noted in the suprapubic area, overall exam was difficult as she was sitting up in a chair, I discussed the case with wound care and pictures will be placed for further review Neuro oriented x3, CN's II-XII intact bilaterally, moves all extremities and no focal motor deficits Speech: speech normal Psych affect normal Psych Narrative: Very pleasant, appropriately interactive Assessment & Plan Assessment/Plan (1) Cellulitis: (2) Sepsis: (3) JOHN (acute kidney injury): (4) Hyponatremia: (5) Metabolic acidosis: (6) Lactic acidosis: (7) MRSA bacteremia: (8) UTI (urinary tract infection): (9) Soft tissue abscess of inguinal region: (10) Leukocytosis: PLAN: Plan Sepsis secondary to staph aureus bacteremia, UTI, cellulitis -Patient met sepsis criteria with tachycardia tachypnea, leukocytosis, lactic acidosis, JOHN and mild transaminitis -Leukocytosis improving from greater than 30,000 on admission down to 19.6 -Patient still with left shift -Continue broad-spectrum antibiotics with vancomycin and cefepime -Preliminary blood cultures, wound culture, urine culture also staff aureus -No need for surgical intervention per appearance on CT at this time -May need further imaging depending on clinical course -Check echocardiogram with staph aureus -Repeat blood cultures in a.m. -ID has been consulted -Urology is following JOHN on CKD stage II -Baseline serum creatinine between 1 and 1.2 -Current serum creatinine down to 1.1 however serum creatinine on admission was almost 2 -Response to IV fluids with boluses given emergency department at presentation -Avoid nephrotoxins as able -Hold home NSAID -Hold on Lai placement at this time and continue to monitor clinically Shortness of breath -Patient with concomitant congestion and cough -Sounds as if this is more of a viral illness than volume overload -Check chest x-ray -Check respiratory viral panel -Check COVID/flu -As needed aerosols ordered Lactic acidosis -Secondary to the above -Resolving Metabolic acidosis -It may be related to all the chloride she obtained however she has not markedly hyperchloremic -Anion gap is not elevated -ABG shows normal pH -Current bicarb is 16 -Repeat BMP in a.m. may be related to chloride rise with IV fluids Hyponatremia -Likely volume depletion -Appears to be resolving with hydration Hypertension -Continue home amlodipine -Continue home atenolol -Okay to restart ARB once dose is clarified Seasonal allergies -Continue home Claritin Overactive bladder -Continue home Gemtesa GERD -Continue home famotidine KARIN -Continue home CPAP Morbid obesity -BMI 45 -Recommend weight loss -Complicates treatment, prognosis, outcomes DVT prophylaxis -currently on Lovenox 30 mg daily -With BMI will increase to 40 mg SQ twice daily -SCDs CODE STATUS -Full code Charges/Coding Visit Charges Inpatient E&M: 46835 [facility] L[facility]
--- NOTE | 2022-04-29 08:19 | PCM.CONS.GEN ---
Assessment & Plan Assessment/Plan (1) Soft tissue abscess of inguinal region: PLAN: await culture results continue antibiotics and supportive care consult wound center for dressings straight cath PVR today and insert brooks if elevated if cellulitis does not improve, plan to obtain CT further distal to evaluate all of the labia miralax for constipation shortness of breath per primary service (2) Sepsis: (3) Cellulitis: (4) Metabolic acidosis: (5) JOHN (acute kidney injury): HPI Consult Data Date of Consult: 04/29/22 HPI Narrative Reason for Consultation: Labial and right inguinal abscess HPI Narrative: MU GARDNER, is a 76 F who I saw in the office 2 days ago. At that time the appointment was for a medication follow-up but she had complaints of bumps on her vagina. On further evaluation she had 3 areas of abscess that I incised and drained and placed packing. I gave her Augmentin. I followed up in the office the next morning and on physical exam, she had significant improvement. She had forgotten to obtain her laboratory studies on the way out of the office and so I sent her for evaluation. We were obtaining a CT scan as an outpatient. Her laboratory studies revealed a significant leukocytosis with acute renal insufficiency and I sent her into the emergency room. She was admitted for sepsis and intravenous fluid and antibiotic administration. This morning she does not feel better. She feels short of breath and is having some left back pain. She is complaining of constipation as well. She denies nausea and vomiting. There is no increase in the pain in the areas of her abscess and cellulitis. [facility] Medical History (Updated 04/29/22 @ 08:[address] Fara Randle MD) Alcohol use Arthritis Asthma Back pain Bladder disease CPAP (continuous positive airway pressure) dependence Easy bruising Gastric reflux History of edema History of pain when walking History of renal disease History of stress test Hx of fracture of lower leg Hypertension Leg cramps Non-smoker Post-menopausal Redness of skin Shortness of breath on exertion Soft tissue abscess of inguinal region Wears glasses Wears hearing aid Home Medications ascorbic acid (vitamin C) 500 mg tablet (Vitamin C) 1,000 mg PO DAILY Supplement 02/26/15 [History Last Taken 04/28/22] cetirizine 10 mg capsule (Allergy Relief (cetirizine)) 10 mg PO DAILY Allergies 02/26/15 [History Last Taken 04/28/22] amlodipine 5 mg-olmesartan 40 mg tablet 1 tab PO DAILY blood pressure 08/12/21 [History Last Taken 04/28/22] famotidine 20 mg tablet 20 mg PO DAILY acid reflux 08/12/21 [History Last Taken 04/28/22] acetaminophen 500 mg tablet 500 mg PO BID pain 04/28/22 [History Last Taken 04/28/22] amoxicillin 875 mg-potassium clavulanate 125 mg tablet 1 tab PO BID ANTIBIOTIC 04/28/22 [History Last Taken 04/28/22 07:00] aspirin 81 mg tablet,delayed release 81 mg PO DAILY HEART HEALTH 04/28/22 [History Last Taken 04/28/22] atenolol 50 mg tablet 50 mg PO BID blood pressure 04/28/22 [History Last Taken 04/28/22] cholecalciferol (vitamin D3) 125 mcg (5,000 unit) tablet 125 mcg PO DAILY supplement 04/28/22 [History Last Taken 04/28/22] cranberry 500 mg capsule 1,500 mg PO DAILY supplement 04/28/22 [History Last Taken 04/28/22] ibuprofen 200 mg tablet 200 mg PO DAILY pain 04/28/22 [History Last Taken 04/28/22] caktnhhhkpwv-mweaoksd-eumccv tablet (Multivitamin 50 Plus tablet) 1 tab PO DAILY supplement 04/28/22 [History Last Taken 04/28/22] oxycodone-acetaminophen 5 mg-325 mg tablet 1 tab PO Q8H PRN Pain 04/28/22 [History Last Taken 04/28/22 07:00] vibegron 75 mg tablet (Gemtesa) 75 mg PO DAILY OVERACTIVE BLADDER 04/28/22 [History Last Taken 04/28/22] Allergy/AdvReac Type Severity Reaction Status Date / Time Sulfa (Sulfonamide Allergy Rash Verified 04/28/22 14:13 Antibiotics) etodolac AdvReac KIDNEY Verified 04/28/22 14:13 ISSUES Surgical History History of lumbar discectomy Hx of breast biopsy Hx of colonoscopy Hx of hysterectomy Hx of right knee surgery Hx of total knee arthroplasty Hx of total knee arthroplasty Hx of umbilical hernia repair Social History Smoking Status: Never smoker ROS Constitutional Constitutional: Reports body ache(s) and chills Eyes Eyes: Reports systems reviewed and no addt'l complaints, except as documented ENT HEENT: Reports systems reviewed and no addt'l complaints, except as documented Cardiovascular Cardiovascular: Denies chest pain Respiratory/Chest Respiratory/Chest: Reports dyspnea and excessive phlegm production Gastrointestinal Gastrointestinal: Reports constipation; Denies nausea or vomiting Genitourinary Genitourinary: Reports genital pain; Denies burning urination, urinary frequency or urinary urgency Musculoskeletal Musculoskeletal: Reports back pain Integumentary Integumentary: Reports systems reviewed and no addt'l complaints, except as documented Neurologic Neurologic: Reports systems reviewed and no addt'l complaints, except as documented Psychiatric Psychiatric: Reports systems reviewed and no addt'l complaints, except as documented Endocrine Endocrinology: Reports systems reviewed and no addt'l complaints, except as documented Hematologic/Lymphatic Hematologic/Lymphatic: Reports systems reviewed and no addt'l complaints, except as documented Allergic/Immunologic Allergic/Immunologic: Reports systems reviewed and no addt'l complaints, except as documented Physical Exam Const alert and oriented x3 General Appearance: cooperative HEENT normocephalic, head/scalp atraumatic, hearing grossly normal bilaterally, external ears normal and external nose normal Eyes General Eye: normal appearance of both eyes Neck supple General: normal visual inspection and trachea midline Lymph Lymphatic: no lymphadenopathy noted and no lymphedema noted Chest inspection of chest normal Chest: symmetrical chest wall rise Resp Effort and Inspection: able to speak in complete sentences and symmetric chest movement Cardio regular rate GI Palpation: soft; Negative for tender, guarding or rigid Narrative: cellulitis erythema and edema about the same as yesterday. no eschar, no fluctuance still with edema. right inguinal abscess pocket is without dressing and having some drainage. will consult wound center no brooks Extremity normal to inspection Skin skin turgor normal, no jaundice, no petechiae and no mottling Neuro oriented x3 and CN's II-XII intact bilaterally Psych mental status grossly normal Lab / Micro Data Result Diagrams: 04/29/22 05:45 04/29/22 05:45 Labs: Laboratory Results - last 24 hr 04/28/22 15:05: WBC 30.5 H*, RBC 4.14 L, Hgb 12.6, Hct 37.7, MCV 91.1, MCH 30.4, MCHC 33.4, RDW Std Deviation 41.6, RDW Coeff of Luis Felipe 12.4, Plt Count 315, MPV 10.4, Neut % (Auto) Not Reportable, Absolute Neuts (auto) 26.8 H, Absolute Lymphs (auto) 1.53, Total Counted 100, Neutrophils % (Manual) 74 H, Band Neutrophils % 14 H, Lymphocytes % (Manual) 5 L, Monocytes % (Manual) 7, Diff Path Review August, Platelet Estimate ADEQUATE, RBC Morphology NORM C+C 04/28/22 15:05: Sodium 130 L, Potassium 4.3, Chloride 99, Carbon Dioxide 21.0, Anion Gap 10, BUN 30 H, Creatinine 1.98 H, Estim Creat Clear Calc 19.42, Est GFR (MDRD) Af Amer 32 L, Est GFR (MDRD) Non-Af 26 L, BUN/Creatinine Ratio 15.2, Glucose 174 H, Calcium 9.0, Total Bilirubin 1.40 H, AST 42 H, ALT 44, Alkaline Phosphatase 160 H, Total Protein 7.4, Albumin 2.5 L, Globulin 4.9 H, Albumin/Globulin Ratio 0.5 L 04/28/22 15:05: Lactic Acid 2.8 H* 04/28/22 15:05: B-Natriuretic Peptide 268.4 H 04/28/22 17:10: Urine Color Sheila, Urine Clarity Sl Cloudy, Urine pH 5.0, Ur Specific Harris 1.020, Urine Protein 15 H, Urine Glucose (UA) NEGATIVE, Urine Ketones Negative, Urine Occult Blood 250, Urine Nitrite Negative, Urine Bilirubin Negative, Urine Urobilinogen 4 H, Ur Leukocyte Esterase 100 H, Urine RBC 10-25 SEEN, Urine WBC 10-25 SEEN, Ur Squamous Epith Cells 0-5 SEEN, Ur Transition Epith Cell 0 SEEN, Ur Renal Epithelial Cell 0-5 SEEN, Urine Bacteria 0 SEEN, Urine Mucus 0 SEEN 04/28/22 19:45: Lactic Acid 2.5 H* 04/28/22 19:45: Troponin I High Sens 04/28/22 22:15: Troponin I High Sens 04/29/22 01:50: Troponin I High Sens 04/29/22 05:45: WBC 19.6 H, RBC 3.45 L, Hgb 10.5 L, Hct 35.4 L, MCV 102.6 H D, MCH 30.4, MCHC 29.7 L D, RDW Std Deviation 49.9 H, RDW Coeff of Luis Felipe 13.2, Plt Count 205, MPV 10.1, Immature Gran % (Auto) 2.200 H, Neut % (Auto) 83.2 H, Lymph % (Auto) 6.1 L, [place] % (Auto) 7.7, Eos % (Auto) 0.5, Baso % (Auto) 0.3, Absolute Neuts (auto) 16.3 H, Absolute Lymphs (auto) 1.20, Nucleated RBC % 0, Diff Path Review August04/29/22 05:45: Sodium 133 L, Potassium 3.6, Chloride 105, Carbon Dioxide 16.0 L, Anion Gap 12, BUN 23 H, Creatinine 1.10 H, Estim Creat Clear Calc 34.95, Est GFR (MDRD) Af Amer 62, Est GFR (MDRD) Non-Af 51 L, BUN/Creatinine Ratio 20.9 H, Glucose 89, Calcium 8.1 L, Total Bilirubin 0.90, AST 27, ALT 31, Alkaline Phosphatase 134 H, Total Protein 5.9 L, Albumin 1.8 L, Globulin 4.1, Albumin/Globulin Ratio 0.4 L Radiology Impression Abdomen/Pelvis CT 04/28/22 16:03 IMPRESSION: Cellulitis and phlegmonous changes within the fat of the right groin with probable lymphadenitis. No evidence for focal abscess Cholelithiasis without evidence for acute cholecystitis.. Other findings as described above. Electronically Signed: Eugene Hagan MD at 16:57 EST , Chest X-Ray 04/28/22 19:10 IMPRESSION: Small left pleural effusion and left lower lobe atelectasis or infiltrate. Electronically Signed: Eugene Hagan MD at 22:09 EST ,
[2022-04-29 08:46] VITALS: PULSE 86; RESP 18; O2SAT 94
[2022-04-29] MEDS: Albuterol 2.5 MG/3 ML VIAL.NEB. INHALATION (08:48)
[2022-04-29 08:50] LABS: Base Excess -7 mmol/L (-2 to +2); Bicarbonate 17.7 mmol/L (22-26); Blood Gas Specimen Type ART; O2 Delivery Device Room Air; PO2 64 mmHG (75-100); SITE R Brach; SO2 92 % (95-99); Total Carbon Dioxide 19 mmol/L; pCO2 29.7 mmHg (35-45); pH 7.38 (7.35-7.45)
[2022-04-29 09:25] VITALS: BP 134/68; PULSE 87; RESP 19; TEMP 37.2; O2SAT 93
[2022-04-29 11:36] VITALS: BP 132/71; PULSE 88; RESP 20; TEMP 37.7; O2SAT 93
[2022-04-29] MEDS: oxyCODONE 5 MG Tablet PO ×2 (11:42→21:20)
[2022-04-29] MEDS: Acetaminophen 325 MG Tablet 650 MG PO ×2 (11:43→21:20)
[2022-04-29] MEDS: Enoxaparin 40 MG/0.4 ML Syringe SC ×2 (11:44→21:17)
[2022-04-29] MEDS: Polyethylene Glycol 3350 17 GM PACKET PO (11:44)
[2022-04-29] MEDS: Ascorbic Acid 500 MG Tablet 1000 MG PO (11:46)
[2022-04-29] MEDS: Multivitamins,Ther W-Minerals Tablet 1 TABLET PO (11:46)
[2022-04-29] MEDS: Atenolol 50 MG Tablet PO ×2 (11:46→21:17)
[2022-04-29] MEDS: Cholecalciferol (Vit D3) 125 MCG CAPSULE (5,000 UNITS) PO (11:46)
[2022-04-29] MEDS: Aspirin E.C. 81 MG Tablet PO (11:47)
[2022-04-29] MEDS: amLODIPine 5 MG Tablet PO (11:47)
[2022-04-29] MEDS: Famotidine 20 MG Tablet PO (11:47)
[2022-04-29] MEDS: Loratadine 10 MG Tablet PO (11:47)
--- NOTE | 2022-04-29 14:30 | NURSING ---
Pt voided at 1400. Bladder scan showed 1ml post residual void. This RN called Dr. Randle and clarified the order to straight cath. Dr. Randle stated she still wanted pt straight cathed to make sure the bladder scan was accurate. This RN was at bedside with Control Equipment Electrician Erinn. Pts urethra could not be visualized d/t reddened, swollen, painful labia. This RN notified Dr. Randle that Pt's urethra could not be visualized d/t inflammation of labia and the patients pain. Dr. Randle Told this RN that she would discuss the situation with Dr. Howard.
--- NOTE | 2022-04-29 14:58 | ECHOD_ITS ---
Reason For Study: staph bacteremia Procedure This was a 2D Doppler, Color Flow transthoracic echocardiogram. Exam performed portable in patient room. Left Ventricle Normal left ventricle. Left ventricular systolic function is normal. The estimated ejection fraction is 60 %. No regional wall motion abnormalities noted. Right Ventricle Normal RV size. Normal systolic function. Atria The left atrium is mildly enlarged. Normal right atrium. Mitral Valve Normal mitral valve. Tricuspid Valve Normal tricuspid valve. Aortic Valve Trisinus/trileaflet aortic valve. Pulmonic Valve Normal pulmonic valve. Great Vessels Normal aortic root. The pulmonary artery is normal size. Normal inferior vena cava. Pericardium/Pleural No pericardial effusion. MMode/2D Measurements & Calculations LVIDd: 4.5 cm IVSd: 1.0 cm Ao root diam: 2.7 cm LVIDs: 2.8 cm LVPWd: 0.95 cm RVDd: 2.8 cm FS: 38.9 % LAV(MOD-bp): 77.1 ml LA A4 area: 24.8 cm2 LA dimension(2D): 4.7 cm LAV(MOD-bp) Indexed: 36.9 ml/m2 LAV(MOD-sp2): 77.0 ml LAV(MOD-sp4): 77.1 ml RA A4 area: 17.9 cm2 Time Measurements MV dec time: 0.25 sec Doppler Measurements & Calculations MV E max maximo: 113.4 cm/sec Lat Peak E' Maximo: 10.6 cm/sec Med Peak E' Maximo: 9.4 cm/sec MV A max maximo: 96.1 cm/sec E/E' lat: 10.7 E/E' med: 12.1 MV E/A: 1.2 MV dec slope: 446.0 cm/sec2 Ao V2 max: 204.0 cm/sec LV V1 max: 149.3 cm/sec Ao max P.7 mmHg LV V1 max P.9 mmHg Ao V2 mean: 133.9 cm/sec LV V1 mean P.7 mmHg Ao mean P.3 mmHg LV V1 mean: 102.5 cm/sec Ao V2 VTI: 37.3 cm LV V1 VTI: 30.3 cm AV (velocity ratio): 0.81 PA V2 max: 104.3 cm/sec ECHO/Echo Complete Interpretation Summary Normal left ventricle. Left ventricular systolic function is normal. The estimated ejection fraction is 60 %. The left atrium is mildly enlarged. Ordering Physician: Stacy Howard Referring Physician: Elijah Gonzalez Performed By: Kristen Cole RDCS, RVT
--- NOTE | 2022-04-29 15:25 | WOUNDNOTE ---
wound photo: mons pubis/labsaleem
--- NOTE | 2022-04-29 15:30 | CASEMGMT ---
RN BERYL Face to Face with patient for initial transition planning/care coordination assessment. RN CM introduced self and role at [facility]. Patient lying in bed, alert and oriented. Patient willing to participate in assessment and is able to answer all questions appropriately. Care providers, pharmacy, and demographics verified. Patient wishes to discharge home, denies need for home health at this time. Patient states he has no further needs or concerns at this time. CM to follow for discharge planning needs that may arise. PCP: Carlos Specialists: Jer urologist; carlos Palacio Preferred Pharmacy: [facility]; [facility] retail at discharge. Insurance: [employer] Prescription Benefit: yes Living Will/HPOA: yes, Jai Luna LNOK: , grandson, sister Living Arrangements: Patient lives with and grandson in a single story home with 2 steps and railing to enter the home. Patient states she is independent at home. Transportation: self, DME/HHC: Patient has shower chair, raised toilet, cane, walker, grab bars, cpap, and lift chair. No previous HHC or SNF Disposition Plan: Patient to discharge home with family support and follow-up plans in place. Michaela MADRID, RN, CM
--- NOTE | 2022-04-29 16:45 | RAD_ITS ---
INDICATION: dyspnea EXAMINATION/TECHNIQUE: X-RAY - portable upright AP chest x-ray COMPARISON: 04/28/2022 FINDINGS: LINES/DEVICES: None. LUNGS: Increasing opacification left lung base, likely increasing pleural effusion with increasing airspace opacity. Right lung clear. MEDIASTINUM AND CARDIOVASCULAR STRUCTURES: Stable cardiomegaly. BONES AND SOFT TISSUES: Stable. RAD/Chest 1 View (Portable) IMPRESSION: Increasing left pleural effusion with adjacent infiltrate. Electronically Signed: Benjamín Rivera MD at 17:22 EST ,
[2022-04-29] MEDS: Furosemide 20 MG/2 ML VIAL IV (18:30)
[2022-04-29 18:33] VITALS: BP 127/65; PULSE 81; RESP 16; TEMP 37; O2SAT 94
--- NOTE | 2022-04-29 20:17 | NURSING ---
This Rn and client services assistant, Latasha placed brooks at 1825 d/t pt having 150 urine output.
[2022-04-30] MEDS: oxyCODONE 5 MG Tablet PO ×4 (01:59→22:29)
[2022-04-30 03:20] VITALS: BP 104/93; PULSE 71; RESP 17; TEMP 36.9; O2SAT 94
[2022-04-30 08:10] VITALS: O2SAT 95
[2022-04-30 08:15] VITALS: BP 103/76; PULSE 75; RESP 18; TEMP 37.2; O2SAT 93
[2022-04-30] MEDS: Acetaminophen 325 MG Tablet 650 MG PO ×3 (08:34→22:29)
[2022-04-30] MEDS: Enoxaparin 40 MG/0.4 ML Syringe SC ×2 (08:37→22:26)
[2022-04-30 08:38] LABS: Hematocrit 36.7 % (37-47); Hemoglobin 12.1 g/dL (12.0-15.0); Mean Corpuscular Hgb 30.1 pg (27.0-32.0); Mean Corpuscular Volume 91.3 fL (81-99); Mean Platelet Vol. 10.1 fl (6.2-12.0); POSITIVE COUNT YES; POSITIVE MORPHOLOGY YES; Platelet Count 366 K/mm3 (150-450); RBC Distribution Width SD 43.6 fl (35.1-43.9); Red Blood Count 4.02 M/mm3 (4.2-5.4); White Blood Count 22.8 K/mm3 (4.4-11.0)
[2022-04-30] MEDS: amLODIPine 5 MG Tablet PO (08:38)
[2022-04-30] MEDS: Multivitamins,Ther W-Minerals Tablet 1 TABLET PO (08:38)
[2022-04-30] MEDS: Loratadine 10 MG Tablet PO (08:38)
[2022-04-30] MEDS: Ascorbic Acid 500 MG Tablet 1000 MG PO (08:39)
[2022-04-30] MEDS: Cholecalciferol (Vit D3) 125 MCG CAPSULE (5,000 UNITS) PO (08:39)
[2022-04-30] MEDS: Famotidine 20 MG Tablet PO (08:39)
[2022-04-30] MEDS: Aspirin E.C. 81 MG Tablet PO (08:39)
[2022-04-30] MEDS: Atenolol 50 MG Tablet PO ×2 (08:39→22:26)
[2022-04-30 08:53] LABS: Anion Gap 8 (5-15); BUN 16 mg/dL (7-18); BUN/Creat Ratio 16.6 RATIO (10-20); Calcium,Total 9.2 mg/dL (8.5-10.1); Chloride 104 mmol/L (98-107); Creatinine, Serum 0.96 mg/dL (0.55-1.02); EST Glomerular Filtration Rate 60 mL/min (>60); Est Glom Filt Rate - Afr Amer 72 mL/min (>60); Estimated Creatinine Clearance 40.05 ml/min; Glucose 110 mg/dL (74-106); Potassium 3.3 mmol/L (3.5-5.1); Sodium Level 136 mmol/L (136-145)
[2022-04-30 09:03] LABS: Differential Indicated MANUAL DIFF
[2022-04-30 09:17] LABS: Pathologist Review Reviewed
[2022-04-30 09:21] LABS: Pathologist Review Reviewed
[2022-04-30 10:17] LABS: Lymphocyte 9 % (19-41); Metamyelocyte 1 % (0-1); Monocyte 12 % (0-10); Myelocyte 2 % (0-0); Neutrophil-Band 11 % (0-5); Neutrophil-Segmented 65 % (47-70); Total Cells Counted 100 (MANUAL DIFF)
[2022-04-30 10:21] LABS: Absolute Lymphocyte Count 2.05 X10^3/uL (0.83-4.51); Absolute Neutrophil Count 17.3 X10^3/uL (2.0-7.7)
--- NOTE | 2022-04-30 12:48 | PCM.CONS.GEN ---
Assessment & Plan Assessment/Plan (1) MRSA bacteremia: PLAN: Sepsis due to MRSA bacteremia from inguinal abscess - bcx, wound cx, and ucx with MRSA. Ucx likely represents hematogenous spread. TTE neg for veg. Had I&D done by Dr. Randle as outpt. No sign of metastatic infection on exam. Will order repeat bcx for next 2 days. Cont vanc, will stop cefepime. Will follow, thank you (2) Soft tissue abscess of inguinal region: (3) Sepsis: HPI Consult Data Date of Consult: 04/30/22 HPI Narrative Reason for Consultation: bacteremia HPI Narrative: MU GARDNER, is a 76 F with hip and knee replacement, presented with about 5 days inguinal redness/pain/swelling. Saw Dr. Randle, I&D done, given augmentin. Had progressive chills, fatigue, not feeling well. No new joint or back pain. Has loss of appetite. Came to ED, admitted on vanc/cefepime. Wound cx, bcx, and ucx with staph aureus. Feeling a little better today, chills improved. Full ROS performed and neg except as noted above. [facility] Medical History Alcohol use Arthritis Asthma Back pain Bladder disease CPAP (continuous positive airway pressure) dependence Easy bruising Gastric reflux History of edema History of pain when walking History of renal disease History of stress test Hx of fracture of lower leg Hypertension Leg cramps Non-smoker Post-menopausal Redness of skin Shortness of breath on exertion Soft tissue abscess of inguinal region Wears glasses Wears hearing aid Home Medications ascorbic acid (vitamin C) 500 mg tablet (Vitamin C) 1,000 mg PO DAILY Supplement 02/26/15 [History Last Taken 04/28/22] cetirizine 10 mg capsule (Allergy Relief (cetirizine)) 10 mg PO DAILY Allergies 02/26/15 [History Last Taken 04/28/22] amlodipine 5 mg-olmesartan 40 mg tablet 1 tab PO DAILY blood pressure 08/12/21 [History Last Taken 04/28/22] famotidine 20 mg tablet 20 mg PO DAILY acid reflux 08/12/21 [History Last Taken 04/28/22] acetaminophen 500 mg tablet 500 mg PO BID pain 04/28/22 [History Last Taken 04/28/22] amoxicillin 875 mg-potassium clavulanate 125 mg tablet 1 tab PO BID ANTIBIOTIC 04/28/22 [History Last Taken 04/28/22 07:00] aspirin 81 mg tablet,delayed release 81 mg PO DAILY HEART HEALTH 04/28/22 [History Last Taken 04/28/22] atenolol 50 mg tablet 50 mg PO BID blood pressure 04/28/22 [History Last Taken 04/28/22] cholecalciferol (vitamin D3) 125 mcg (5,000 unit) tablet 125 mcg PO DAILY supplement 04/28/22 [History Last Taken 04/28/22] cranberry 500 mg capsule 1,500 mg PO DAILY supplement 04/28/22 [History Last Taken 04/28/22] ibuprofen 200 mg tablet 200 mg PO DAILY pain 04/28/22 [History Last Taken 04/28/22] smlfsvsxvury-cjhbutdz-rcgihb tablet (Multivitamin 50 Plus tablet) 1 tab PO DAILY supplement 04/28/22 [History Last Taken 04/28/22] oxycodone-acetaminophen 5 mg-325 mg tablet 1 tab PO Q8H PRN Pain 04/28/22 [History Last Taken 04/28/22 07:00] vibegron 75 mg tablet (Gemtesa) 75 mg PO DAILY OVERACTIVE BLADDER 04/28/22 [History Last Taken 04/28/22] Allergy/AdvReac Type Severity Reaction Status Date / Time Sulfa (Sulfonamide Allergy Rash Verified 04/28/22 14:13 Antibiotics) etodolac AdvReac KIDNEY Verified 04/28/22 14:13 ISSUES Surgical History History of lumbar discectomy Hx of breast biopsy Hx of colonoscopy Hx of hysterectomy Hx of right knee surgery Hx of total knee arthroplasty Hx of total knee arthroplasty Hx of umbilical hernia repair Social History Smoking Status: Never smoker Physical Exam Const alert, oriented x3 and no apparent distress General Appearance: cooperative HEENT normocephalic and head/scalp atraumatic Eyes PERRL and EOMs intact bilaterally Neck supple and No nodes Resp normal air movement and clear to auscultation bilaterally Cardio regular rate, regular rhythm and no murmurs GI soft to palpation, non-tender and non-distended Extremity Extremity Narrative: No focal joint or spine tenderness. General Extremity: Negative for edema Skin Skin Narrative: Inguinal abscesses with surrounding redness/swelling. No splinter hemorrhages on hands or feet. Neuro CN's II-XII intact bilaterally Lab / Micro Data Attestation: I reviewed the patient's lab results. Result Diagrams: 04/30/22 08:17 04/30/22 08:17 Labs: Laboratory Results - last 24 hr 04/28/22 15:05: Diff Path Review Reviewed 04/29/22 05:45: Diff Path Review Reviewed 04/30/22 08:17: WBC 22.8 H, RBC 4.02 L, Hgb 12.1, Hct 36.7 L, MCV 91.3 D, MCH 30.1, MCHC 33.0 D, RDW Std Deviation 43.6, RDW Coeff of Luis Felipe 13.0, Plt Count 366, MPV 10.1, Neut % (Auto) Not Reportable, Absolute Neuts (auto) 17.3 H, Absolute Lymphs (auto) 2.05, Total Counted 100, Neutrophils % (Manual) 65, Band Neutrophils % 11 H, Lymphocytes % (Manual) 9 L, Monocytes % (Manual) 12 H, Metamyelocytes % 1, Myelocytes % 2 H, Diff Path Review May foll 04/30/22 08:17: Sodium 136, Potassium 3.3 L, Chloride 104, Carbon Dioxide 24.0, Anion Gap 8, BUN 16, Creatinine 0.96, Estim Creat Clear Calc 40.05, Est GFR (MDRD) Af Amer 72, Est GFR (MDRD) Non-Af 60, BUN/Creatinine Ratio 16.6, Glucose 110 H, Calcium 9.2 Micro: Microbiology 04/28/22 15:05 Blood Culture (Wb) - Right Forearm Blood Culture - Preliminary Staphylococcus aureus 04/28/22 15:50 Blood Culture (Wb) - Right Forearm Bacteria Detection (PCR) - Final Meth. resistant Staph. aureus 04/28/22 15:50 Blood Culture (Wb) - Right Forearm Blood Culture - Preliminary Meth. resistant Staph. aureus 04/28/22 17:10 Urine, Clean Catch Urine Culture - Final Meth. resistant Staph. aureus 04/29/22 19:00 Nasal Secretion SARS-CoV-2 & FLU Antigen (Rapid) - Final 04/29/22 15:58 Mucosa - Nasopharyngeal Respiratory Panel (PCR) - Final Radiology Impression Echocardiogram 04/29/22 14:58 Interpretation Summary Normal left ventricle. Left ventricular systolic function is normal. The estimated ejection fraction is 60 %. The left atrium is mildly enlarged. Ordering Physician: Stacy Howard Referring Physician: Elijah Gonzalez Performed By: Kristen Cole, RDCS, RVT Chest X-Ray 04/29/22 16:45 IMPRESSION: Increasing left pleural effusion with adjacent infiltrate. Electronically Signed: Benjamín Rivera MD at 17:22 EST ,
--- NOTE | 2022-04-30 13:33 | PCM.PN.GU ---
Subjective Subjective Late note for 8am rounds. She is sitting up in chair. Her shortness of breath improved last night, feeling little more short of breath this morning. She is feel less uncomfortable now that the brooks is in. Her cellulitis wounds and pain are about the same. Objective Data Objective Data Vital Signs: Vital Signs Temp Pulse Resp BP Pulse Ox O2 Del Method FiO2 98.9 F 75 18 103/76 93 Room Air 94 04/30/22 08:15 04/30/22 08:15 04/30/22 08:15 04/30/22 08:15 04/30/22 08:15 04/30/22 12:44 04/30/22 12:44 Oxygen Delivery Method Room Air Weight: 111.6 kg Body Mass Index (BMI) 45.0 Intake & Output: Intake and Output for Last 24 Hours 04/28/22 04/29/22 04/30/22 23:59 23:59 23:59 Intake Total 3200 / 3200 1335 / 1335 900 / 900 Output Total 2350 / 2350 1100 / 1100 Balance 3200 / 3200 -1015 / -1015 -200 / -200 Lab / Micro Data Result Diagrams: 04/30/22 08:17 04/30/22 08:17 Labs: Laboratory Results - last 24 hr 04/28/22 15:05: Diff Path Review Reviewed 04/29/22 05:45: Diff Path Review Reviewed 04/30/22 08:17: WBC 22.8 H, RBC 4.02 L, Hgb 12.1, Hct 36.7 L, MCV 91.3 D, MCH 30.1, MCHC 33.0 D, RDW Std Deviation 43.6, RDW Coeff of Luis Felipe 13.0, Plt Count 366, MPV 10.1, Neut % (Auto) Not Reportable, Absolute Neuts (auto) 17.3 H, Absolute Lymphs (auto) 2.05, Total Counted 100, Neutrophils % (Manual) 65, Band Neutrophils % 11 H, Lymphocytes % (Manual) 9 L, Monocytes % (Manual) 12 H, Metamyelocytes % 1, Myelocytes % 2 H, Diff Path Review August04/30/22 08:17: Sodium 136, Potassium 3.3 L, Chloride 104, Carbon Dioxide 24.0, Anion Gap 8, BUN 16, Creatinine 0.96, Estim Creat Clear Calc 40.05, Est GFR (MDRD) Af Amer 72, Est GFR (MDRD) Non-Af 60, BUN/Creatinine Ratio 16.6, Glucose 110 H, Calcium 9.2 Micro: Microbiology 04/28/22 15:05 Blood Culture (Wb) - Right Forearm Blood Culture - Preliminary Staphylococcus aureus 04/28/22 15:50 Blood Culture (Wb) - Right Forearm Bacteria Detection (PCR) - Final Meth. resistant Staph. aureus 04/28/22 15:50 Blood Culture (Wb) - Right Forearm Blood Culture - Preliminary Meth. resistant Staph. aureus 04/28/22 17:10 Urine, Clean Catch Urine Culture - Final Meth. resistant Staph. aureus 04/29/22 19:00 Nasal Secretion SARS-CoV-2 & FLU Antigen (Rapid) - Final 04/29/22 15:58 Mucosa - Nasopharyngeal Respiratory Panel (PCR) - Final Radiography Diagnostic Testing: Radiology Impression Echocardiogram 04/29/22 14:58 Interpretation Summary Normal left ventricle. Left ventricular systolic function is normal. The estimated ejection fraction is 60 %. The left atrium is mildly enlarged. Ordering Physician: Stacy Howard Referring Physician: Elijah Gonzalez Performed By: Kristen Cole, DEBBIECS, RVT Chest X-Ray 04/29/22 16:45 IMPRESSION: Increasing left pleural effusion with adjacent infiltrate. Electronically Signed: Benjamín Rivera MD at 17:22 EST , Physical Exam Const alert, oriented x3 and no apparent distress General Appearance: cooperative and comfortable Orientation / Consciousness: awake, oriented to person, oriented to place and oriented to time HEENT normocephalic, external nose normal and moist oral mucous membranes Eyes General Eye: normal appearance of both eyes Neck supple General: normal visual inspection and trachea midline Chest inspection of chest normal Chest: symmetrical chest wall rise Cardio regular rate GI soft to palpation GI Narrative: tender over the suprapubic skin area of cellulitits.the edema there seems to be decreased from yesterday, erythema is about the same. right inguinal abscess pocket looks about the same. I am here with wound nurse who is packing the wound with iodoform packing. the other vaginal wounds are not draining, still edematous Narrative: brooks catheter drainging clear yellow urine. her post void residual yesterday was 150cc so brooks was inserted and left to straight drain Bladder / Kidney Exam: catheter in place Neuro oriented x3 and CN's II-XII intact bilaterally Psych mental status grossly normal Assessment & Plan Assessment/Plan (1) MRSA bacteremia: (2) Sepsis: (3) JOHN (acute kidney injury): (4) Soft tissue abscess of inguinal region: PLAN: Plan continue management antibiotics and evaluation per ID will continue to follow wound with wound center staff, packing and dressing changes. if she continues to have an increase in her WBC, I would recommend that we obtain CT further down to include all of her labia urinary retention, continue brooks for few days and then trial of void as her constipation resolves I do think her urine culture is likely bacteria from vaginal wounds as this was sent from ER likely was voided specimen will follow
--- NOTE | 2022-04-30 14:14 | CASEMGMT ---
SW met with patient per her request. THERESA introduced self. Patient wants to change her contact people on her demographics. Patient wants her sister Manjit removed. Patient would like her Jai to remain, but then add Cora Luna her daughter in law and Osbaldo [place] her grandson. She would like all 3 of them to be able to get information about her during her stay. THERESA changed this information in the computer. Lore Lovell [employer] N[employer]IL
[2022-04-30 15:29] VITALS: BP 162/73; PULSE 77; RESP 18; TEMP 37.5; O2SAT 92
[2022-04-30 17:06] LABS: Vancomycin, Trough Level 7.5 ug/mL (5.0-15.0)
--- NOTE | 2022-04-30 17:20 | PCM.RX.CS ---
Consult Pharmacy has been consulted to manage selected antiobiotic: Vancomycin Type of Consult: Follow-up Suspected Infection: Bacteremia, Other - UTI Labs: Sodium 136 mmol/L (136-145) 04/30/22 08:17 Potassium 3.3 mmol/L (3.5-5.1) L 04/30/22 08:17 Chloride 104 mmol/L (98-107) 04/30/22 08:17 Carbon Dioxide 24.0 mmol/L (21.0-32.0) 04/30/22 08:17 Anion Gap 8 (5-15) 04/30/22 08:17 BUN 16 mg/dL (7-18) 04/30/22 08:17 Creatinine 0.96 mg/dL (0.55-1.02) 04/30/22 08:17 Est GFR (MDRD) Af Amer 72 mL/min (>60) 04/30/22 08:17 Est GFR (MDRD) Non-Af 60 mL/min (>60) 04/30/22 08:17 BUN/Creatinine Ratio 16.6 RATIO (10-20) 04/30/22 08:17 Glucose 110 mg/dL (74-106) H 04/30/22 08:17 Vancomycin Trough 7.5 ug/mL (5.0-15.0) 04/30/22 16:16 Microbiology: Microbiology 04/28/22 15:05 Blood Culture (Wb) - Right Forearm Blood Culture - Preliminary Staphylococcus aureus 04/28/22 15:50 Blood Culture (Wb) - Right Forearm Bacteria Detection (PCR) - Final Meth. resistant Staph. aureus 04/28/22 15:50 Blood Culture (Wb) - Right Forearm Blood Culture - Preliminary Meth. resistant Staph. aureus 04/28/22 17:10 Urine, Clean Catch Urine Culture - Final Meth. resistant Staph. aureus 04/29/22 19:00 Nasal Secretion SARS-CoV-2 & FLU Antigen (Rapid) - Final 04/29/22 15:58 Mucosa - Nasopharyngeal Respiratory Panel (PCR) - Final Pharmacy Plan for Drug Dosing: VANCOMYCIN LEVEL RECEIVED Current Vancomycin Dose: 1250MG Q24 Number of Doses Received: 2 Vancomycin Level: 7.4 MG/DL Hours Since Last Dose: 22 Renal Function: SCR 0.96 MG/DL, CRCL 59.7 ML/MIN USING ADJUSTED BW Renal Function Trend: IMPROVED, FROM SCR 1.98 (04/28) Lab/Micro: MRSA IN BLOOD AND URINE CX Vancomycin Plan/Comments: 22 HOUR TROUGH IS SUBTHERAPEUTIC AT 7.4 MG/DL, GOAL TROUGH 15-20. WILL CHANGE TO 1250MG Q12 (SUGGESTED EMPIRIC THERAPY FOR WEIGHT AND RENAL FUNCTION) AND GET A TROUGH PRIOR TO 4TH DOSE PER POLICY. Pending Level: 05/02/22 @ 0530 Pharmacy Service will continue to monitor and adjust dosing as required.
--- NOTE | 2022-04-30 19:16 | PN.HOSP_ITS ---
Subjective Subjective Patient was seen and examined today, right blood cell count is still elevated at 22.8, she was seen by infectious diseases today, patient's cefepime was stopped and she was continued on vancomycin. I talked briefly with urology about her care today, urology does not feel the patient needs surgery. Objective Data Objective Data Vital Signs: Vital Signs Temp Pulse Resp BP Pulse Ox O2 Del Method FiO2 99.5 F H 77 18 162/73 H 92 Room Air 94 04/30/22 15:29 04/30/22 15:29 04/30/22 15:29 04/30/22 15:29 04/30/22 15:29 04/30/22 15:29 04/30/22 12:44 Oxygen Delivery Method Room Air Weight: 111.6 kg Body Mass Index (BMI) 45.0 Intake & Output: Intake and Output for Last 24 Hours 04/28/22 04/29/22 04/30/22 23:59 23:59 23:59 Intake Total 3200 / 3200 1335 / 1335 1500 / 1500 Output Total 2350 / 2350 1650 / 1650 Balance 3200 / 3200 -1015 / -1015 -150 / -150 Lab / Micro Data Result Diagrams: 04/30/22 08:17 04/30/22 08:17 Labs: Laboratory Results - last 24 hr 04/28/22 15:05: Diff Path Review Reviewed 04/29/22 05:45: Diff Path Review Reviewed 04/30/22 08:17: WBC 22.8 H, RBC 4.02 L, Hgb 12.1, Hct 36.7 L, MCV 91.3 D, MCH 30.1, MCHC 33.0 D, RDW Std Deviation 43.6, RDW Coeff of Luis Felipe 13.0, Plt Count 366, MPV 10.1, Neut % (Auto) Not Reportable, Absolute Neuts (auto) 17.3 H, Absolute Lymphs (auto) 2.05, Total Counted 100, Neutrophils % (Manual) 65, Band Neutrophils % 11 H, Lymphocytes % (Manual) 9 L, Monocytes % (Manual) 12 H, Metamyelocytes % 1, Myelocytes % 2 H, Diff Path Review August04/30/22 08:17: Sodium 136, Potassium 3.3 L, Chloride 104, Carbon Dioxide 24.0, Anion Gap 8, BUN 16, Creatinine 0.96, Estim Creat Clear Calc 40.05, Est GFR (MDRD) Af Amer 72, Est GFR (MDRD) Non-Af 60, BUN/Creatinine Ratio 16.6, Glucose 110 H, Calcium 9.2 04/30/22 16:16: Vancomycin Trough 7.5 Micro: Microbiology 04/28/22 15:05 Blood Culture (Wb) - Right Forearm Blood Culture - Prel iminary Staphylococcus aureus 04/28/22 15:50 Blood Culture (Wb) - Right Forearm Bacteria Detection (PCR) - Final Meth. resistant Staph. aureus 04/28/22 15:50 Blood Culture (Wb) - Right Forearm Blood Culture - Preliminary Meth. resistant Staph. aureus 04/28/22 17:10 Urine, Clean Catch Urine Culture - Final Meth. resistant Staph. aureus 04/29/22 19:00 Nasal Secretion SARS-CoV-2 & FLU Antigen (Rapid) - Final 04/29/22 15:58 Mucosa - Nasopharyngeal Respiratory Panel (PCR) - Final Physical Exam Const alert, oriented x3 and no apparent distress Constitutional Narrative: Patient is morbidly obese General Appearance: cooperative, well kempt and well developed Orientation / Consciousness: awake, oriented to person, oriented to place and oriented to time HEENT normocephalic, head/scalp atraumatic and moist oral mucous membranes Eyes PERRL, EOMs intact bilaterally and conjunctivae normal Neck supple, no JVD, thyroid normal and no carotid bruits General: trachea midline Resp normal respiratory effort, no retractions, no use of accessory muscles and clear to auscultation bilaterally Auscultation: Negative for rales, rhonchi or wheezes Cardio regular rate, regular rhythm, S1 normal heart sound, S2 normal heart sound, no murmurs, no rub and no gallops GI normal to inspection, nondistended, normoactive bowel sounds, soft to palpation, non-tender and non-distended Extremity no clubbing, cyanosis or edema Neuro oriented x3, CN's II-XII intact bilaterally, moves all extremities, no focal motor deficits and no sensory deficits noted Sensorium / Orientation: awake, alert, oriented to person, oriented to place and oriented to time Speech: speech normal Psych affect normal Assessment & Plan Assessment/Plan (1) Sepsis: PLAN: Plan 1. Sepsis secondary to MRSA urinary tract infection and inguinal abscess- patient will remain on vancomycin at this time under direction of infectious diseases. #2 essential hypertension-patient will remain on her present medications #3 acute kidney injury-patient's creatinine today was 0.96, chemistry will be monitored as needed #4 morbid obesity-complicates care, medical course, recovery, and prognosis #5 hypokalemia-patient's BMP will be checked tomorrow morning again Total clinical time spent by myself addressing the patient's medical issues, re viewing all the data, and collaborating with patient's care team: 35 minutes Charges/Coding Visit Charges Inpatient E&M: 80289 Subs Hosp L2
[2022-04-30 21:29] VITALS: BP 151/68; PULSE 71; RESP 18; TEMP 37.6; O2SAT 93
--- NOTE | 2022-04-30 23:40 | NURSING ---
intravenous access attempted by this RN when previous IV had infiltrated and was unsuccessful, recommended other RNs on the floor to attempt and were unsuccessful. human services supervisor was called and also not able to obtain IV access. ICU called for possible attempt at ultrasound guided IV, IV was placed by CUSTOMER ACCOUNT SPECIALIST after ultrasound guided attempt. Pt has limited options for IV access
[2022-05-01] VITALS (7 sets, daily range): BP systolic 131–151; BP diastolic 47–75; PULSE 66–75; RESP 16–18; TEMP 36.6–37.1; O2SAT 92–95
[2022-05-01 03:27] LABS: Red Cell Morphology NORM C+C NORMAL (NORM C&C)
[2022-05-01 03:28] LABS: Platelet Estimate ADEQUATE (ADEQ)
[2022-05-01] MEDS: oxyCODONE 5 MG Tablet PO ×3 (04:00→20:09)
[2022-05-01 07:06] LABS: Hematocrit 35.2 % (37-47); Mean Corp Hgb Conc 34.1 g/dL (32-36); Mean Corpuscular Hgb 30.5 pg (27.0-32.0); Mean Corpuscular Volume 89.6 fL (81-99); Mean Platelet Vol. 10.5 fl (6.2-12.0); POSITIVE COUNT YES; POSITIVE MORPHOLOGY YES; Platelet Count 347 K/mm3 (150-450); RBC Distribution Width SD 42.8 fl (35.1-43.9); Red Blood Count 3.93 M/mm3 (4.2-5.4); White Blood Count 19.3 K/mm3 (4.4-11.0)
[2022-05-01 07:15] LABS: Differential Indicated MANUAL DIFF
[2022-05-01 07:51] LABS: Anion Gap 10 (5-15); BUN 13 mg/dL (7-18); BUN/Creat Ratio 15.6 RATIO (10-20); Calcium,Total 8.9 mg/dL (8.5-10.1); Chloride 106 mmol/L (98-107); Creatinine, Serum 0.83 mg/dL (0.55-1.02); EST Glomerular Filtration Rate 71 mL/min (>60); Est Glom Filt Rate - Afr Amer 86 mL/min (>60); Estimated Creatinine Clearance 46.32 ml/min; Glucose 108 mg/dL (74-106); Potassium 3.7 mmol/L (3.5-5.1); Sodium Level 137 mmol/L (136-145)
[2022-05-01 08:24] LABS: Neutrophil-Band 2 % (0-5); Neutrophil-Segmented 72 % (47-70); Total Cells Counted 100 (MANUAL DIFF)
[2022-05-01 08:25] LABS: Eosinophil 3 % (0-5); Lymphocyte 11 % (19-41); Metamyelocyte 3 % (0-1); Monocyte 6 % (0-10); Myelocyte 2 % (0-0); Plasma Cell 1 %; Platelet Estimate ADEQUATE (ADEQ); Red Cell Morphology NORM C+C NORMAL (NORM C&C)
[2022-05-01 08:26] LABS: Absolute Lymphocyte Count 2.12 X10^3/uL (0.83-4.51); Absolute Neutrophil Count 14.3 X10^3/uL (2.0-7.7)
[2022-05-01] MEDS: Acetaminophen 325 MG Tablet 650 MG PO ×2 (08:57→20:10)
[2022-05-01] MEDS: Ascorbic Acid 500 MG Tablet 1000 MG PO (09:42)
[2022-05-01] MEDS: Loratadine 10 MG Tablet PO (09:43)
[2022-05-01] MEDS: Famotidine 20 MG Tablet PO (09:43)
[2022-05-01] MEDS: Atenolol 50 MG Tablet PO ×2 (09:43→22:38)
[2022-05-01] MEDS: amLODIPine 5 MG Tablet PO (09:43)
[2022-05-01] MEDS: Cholecalciferol (Vit D3) 125 MCG CAPSULE (5,000 UNITS) PO (09:44)
[2022-05-01] MEDS: Multivitamins,Ther W-Minerals Tablet 1 TABLET PO (09:45)
[2022-05-01] MEDS: Aspirin E.C. 81 MG Tablet PO (09:45)
[2022-05-01] MEDS: Enoxaparin 40 MG/0.4 ML Syringe SC ×2 (11:02→22:37)
--- NOTE | 2022-05-01 17:20 | PN.HOSP_ITS ---
Subjective Subjective Patient was seen and examined today, we lost venous access today and she had an extravasation of vancomycin, this was treated per protocol. The nursing power press supervisor was able to get an IV inserted today and we resumed antibiotics. Patient's white count is improved today. Objective Data Objective Data Vital Signs: Vital Signs Temp Pulse Resp BP Pulse Ox O2 Del Method FiO2 98.5 F 74 18 151/75 H 95 Room Air 94 05/01/22 15:25 05/01/22 15:25 05/01/22 15:25 05/01/22 15:25 05/01/22 15:25 05/01/22 15:25 04/30/22 12:44 Oxygen Delivery Method Room Air Weight: 111.6 kg Body Mass Index (BMI) 45.0 Intake & Output: Intake and Output for Last 24 Hours 04/29/22 04/30/22 05/01/22 23:59 23:59 23:59 Intake Total 1335 / 1335 1775 / 1775 725 / 725 Output Total 2350 / 2350 2390 / 2390 1100 / 1100 Balance -1015 / -1015 -615 / -615 -375 / -375 Lab / Micro Data Result Diagrams: 05/01/22 05:45 05/01/22 05:45 Labs: Laboratory Results - last 24 hr 04/30/22 08:17: Platelet Estimate ADEQUATE, RBC Morphology NORM C+C 05/01/22 05:45: WBC 19.3 H, RBC 3.93 L, Hgb 12.0, Hct 35.2 L, MCV 89.6, MCH 30.5, MCHC 34.1, RDW Std Deviation 42.8, RDW Coeff of Luis Felipe 13.0, Plt Count 347, MPV 10.5, Neut % (Auto) Not Reportable, Absolute Neuts (auto) 14.3 H, Absolute Lymphs (auto) 2.12, Total Counted 100, Neutrophils % (Manual) 72 H, Band Neutrophils % 2, Lymphocytes % (Manual) 11 L, Monocytes % (Manual) 6, Eosinophils % (Manual) 3, Metamyelocytes % 3 H, Myelocytes % 2 H, Plasma Cell % (Manual) 1, Diff Path Review August, Platelet Estimate ADEQUATE, RBC Morphology NORM C+C 05/01/22 05:45: Sodium 137, Potassium 3.7, Chloride 106, Carbon Dioxide 21.0, Anion Gap 10, BUN 13, Creatinine 0.83, Estim Creat Clear Calc 46.32, Est GFR (MDRD) Af Amer 86, Est GFR (MDRD) Non-Af 71, BUN/Creatinine Ratio 15.6, Glucose 108 H, Calcium 8.9 Micro: Microbiology 04/28/22 15:50 Blood Culture (Wb) - Right Forearm Bacteria Detection (PCR) - Final Meth. resistant Staph. aureus 04/28/22 15:50 Blood Culture (Wb) - Right Forearm Blood Culture - Preliminary Meth. resistant Staph. aureus 04/28/22 15:05 Blood Culture (Wb) - Right Forearm Blood Culture - Preliminary Staphylococcus aureus 04/28/22 17:10 Urine, Clean Catch Urine Culture - Final Meth. resistant Staph. aureus 04/29/22 19:00 Nasal Secretion SARS-CoV-2 & FLU Antigen (Rapid) - Final 04/29/22 15:58 Mucosa - Nasopharyngeal Respiratory Panel (PCR) - Final Physical Exam Narrative alert, oriented x3 and no apparent distress Constitutional Narrative: Patient is morbidly obese General Appearance: cooperative, well kempt and well developed Orientation / Consciousness: awake, oriented to person, oriented to place and oriented to time HEENT normocephalic, head/scalp atraumatic and moist oral mucous membranes Eyes PERRL, EOMs intact bilaterally and conjunctivae normal Neck supple, no JVD, thyroid normal and no carotid bruits General: trachea midline Resp normal respiratory effort, no retractions, no use of accessory muscles and clear to auscultation bilaterally Auscultation: Negative for rales, rhonchi or wheezes Cardio regular rate, regular rhythm, S1 normal heart sound, S2 normal heart sound, no murmurs, no rub and no gallops GI normal to inspection, nondistended, normoactive bowel sounds, soft to palpation, non-tender and non-distended Extremity no clubbing, cyanosis or edema Neuro oriented x3, CN's II-XII intact bilaterally, moves all extremities, no focal motor deficits and no sensory deficits noted Sensorium / Orientation: awake, alert, oriented to person, oriented to place and oriented to time Speech: speech normal Psych affect normal Assessment & Plan Assessment/Plan (1) MRSA bacteremia: (2) Sepsis: PLAN: Plan 1. Sepsis secondary to MRSA urinary tract infection and inguinal abscess- patient will remain on vancomycin at this time under direction of infectious diseases. Blood cultures from yesterday shows no growth so far, I briefly talked with infectious diseases today-Dr. Miller states that he would want the blood cultures at 72 hours to be negative before a PICC line is inserted. #2 essential hypertension-patient will remain on her present medications #3 acute kidney injury-patient's creatinine today was normal, labs will be monitored #4 morbid obesity-complicates care, medical course, recovery, and prognosis #5 hypokalemia-corrected at this time Total clinical time spent by myself addressing the patient's medical issues, reviewing all the data, and collaborating with patient's care team: 37 minutes Charges/Coding Visit Charges Inpatient E&M: 01579 Subs Hosp L2
[2022-05-02] VITALS (7 sets, daily range): BP systolic 116–159; BP diastolic 60–75; PULSE 63–78; RESP 16–18; TEMP 36.6–37.3; O2SAT 94–96
[2022-05-02 05:50] LABS: Hematocrit 35.1 % (37-47); Hemoglobin 11.3 g/dL (12.0-15.0); Mean Corp Hgb Conc 32.2 g/dL (32-36); Mean Corpuscular Hgb 30.7 pg (27.0-32.0); Mean Corpuscular Volume 95.4 fL (81-99); Mean Platelet Vol. 9.7 fl (6.2-12.0); POSITIVE COUNT YES; POSITIVE MORPHOLOGY YES; Platelet Count 376 K/mm3 (150-450); RBC Distribution Width CV 13.2 % (11.6-14.6); RBC Distribution Width SD 46.3 fl (35.1-43.9); Red Blood Count 3.68 M/mm3 (4.2-5.4); White Blood Count 17.8 K/mm3 (4.4-11.0)
[2022-05-02 05:56] LABS: Differential Indicated MANUAL DIFF
[2022-05-02 06:21] LABS: Anion Gap 8 (5-15); BUN 10 mg/dL (7-18); Calcium,Total 8.8 mg/dL (8.5-10.1); Chloride 102 mmol/L (98-107); Creatinine, Serum 0.77 mg/dL (0.55-1.02); EST Glomerular Filtration Rate 78 mL/min (>60); Est Glom Filt Rate - Afr Amer 94 mL/min (>60); Estimated Creatinine Clearance 38.44 ml/min; Glucose 117 mg/dL (74-106); Potassium 3.6 mmol/L (3.5-5.1); Sodium Level 135 mmol/L (136-145)
[2022-05-02 06:24] LABS: Vancomycin, Trough Level 14.3 ug/mL (5.0-15.0)
[2022-05-02 06:27] LABS: Lymphocyte 4 % (19-41); Metamyelocyte 5 % (0-1); Monocyte 10 % (0-10); Myelocyte 5 % (0-0); Neutrophil-Band 2 % (0-5); Neutrophil-Segmented 74 % (47-70); Platelet Estimate ADEQUATE (ADEQ); Red Cell Morphology NORM C+C NORMAL (NORM C&C); Total Cells Counted 100 (MANUAL DIFF)
[2022-05-02 06:28] LABS: Absolute Lymphocyte Count 0.71 X10^3/uL (0.83-4.51); Absolute Neutrophil Count 13.6 X10^3/uL (2.0-7.7); Lymphocyte # 0.71 X10^3/ul (0.83-4.51); Neutrophil # 13.56 X10^3/uL (2.7-7.7)
--- NOTE | 2022-05-02 06:34 | PHA.PHARE_ITS ---
Consult Pharmacy has been consulted to manage selected antiobiotic: Vancomycin Type of Consult: Follow-up Labs: Sodium 135 mmol/L (136-145) L 05/02/22 05:40 Potassium 3.6 mmol/L (3.5-5.1) 05/02/22 05:40 Chloride 102 mmol/L (98-107) 05/02/22 05:40 Carbon Dioxide 25.0 mmol/L (21.0-32.0) 05/02/22 05:40 Anion Gap 8 (5-15) 05/02/22 05:40 BUN 10 mg/dL (7-18) 05/02/22 05:40 Creatinine 0.77 mg/dL (0.55-1.02) 05/02/22 05:40 Est GFR (MDRD) Af Amer 94 mL/min (>60) 05/02/22 05:40 Est GFR (MDRD) Non-Af 78 mL/min (>60) 05/02/22 05:40 BUN/Creatinine Ratio 13.0 RATIO (10-20) 05/02/22 05:40 Glucose 117 mg/dL (74-106) H 05/02/22 05:40 Vancomycin Trough 14.3 ug/mL (5.0-15.0) 05/02/22 05:40 Microbiology: Microbiology 04/30/22 04:23 Blood Culture (Wb) - Left Forearm Blood Culture - Preliminary No growth in 48 hours. 04/28/22 15:50 Blood Culture (Wb) - Right Forearm Bacteria Detection (PCR) - Final Meth. resistant Staph. aureus 04/28/22 15:50 Blood Culture (Wb) - Right Forearm Blood Culture - Preliminary Meth. resistant Staph. aureus 04/28/22 15:05 Blood Culture (Wb) - Right Forearm Blood Culture - Preliminary Staphylococcus aureus 04/28/22 17:10 Urine, Clean Catch Urine Culture - Final Meth. resistant Staph. aureus 04/29/22 19:00 Nasal Secretion SARS-CoV-2 & FLU Antigen (Rapid) - Final 04/29/22 15:58 Mucosa - Nasopharyngeal Respiratory Panel (PCR) - Final Goal Trough: 15-20 mcg/mL Pharmacy Plan for Drug Dosing: Pharmacy Service will continue to monitor and adjust dosing as required. Follow-Up Labs: Trough Vancomycin Labs to be done on [date and time ordered]: TROUGH 14.3 @ 11.5 HOURS. GOAL 15- 20, NO CHANGE NOW, FOLLOW UP TROUGH IN 1 DAY TO SEE IF ANY CHANGE.
[2022-05-02] MEDS: Multivitamins,Ther W-Minerals Tablet 1 TABLET PO (08:53)
[2022-05-02] MEDS: Ascorbic Acid 500 MG Tablet 1000 MG PO (08:53)
[2022-05-02] MEDS: Famotidine 20 MG Tablet PO (08:54)
[2022-05-02] MEDS: amLODIPine 5 MG Tablet PO (08:54)
[2022-05-02] MEDS: Loratadine 10 MG Tablet PO (08:54)
[2022-05-02] MEDS: Cholecalciferol (Vit D3) 125 MCG CAPSULE (5,000 UNITS) PO (08:54)
[2022-05-02] MEDS: Aspirin E.C. 81 MG Tablet PO (08:54)
[2022-05-02] MEDS: Atenolol 50 MG Tablet PO ×2 (08:54→22:38)
[2022-05-02] MEDS: Enoxaparin 40 MG/0.4 ML Syringe SC ×2 (08:55→22:41)
[2022-05-02] MEDS: Polyethylene Glycol 3350 17 GM PACKET PO (08:55)
--- NOTE | 2022-05-02 16:42 | PN.HOSP_ITS ---
Subjective Subjective Seen and examined today, white blood cell count is improved at 17.8 today, blood cultures at 48 hours are negative. Objective Data Objective Data Vital Signs: Vital Signs Temp Pulse Resp BP Pulse Ox O2 Del Method FiO2 99.1 F 78 18 146/60 H 95 Room Air 94 05/02/22 15:15 05/02/22 15:15 05/02/22 15:15 05/02/22 15:15 05/02/22 15:15 05/02/22 15:16 04/30/22 12:44 Oxygen Delivery Method Room Air Weight: 111.6 kg Body Mass Index (BMI) 45.0 Intake & Output: Intake and Output for Last 24 Hours 04/30/22 05/01/22 05/02/22 23:59 23:59 23:59 Intake Total 1775 / 1775 1700 / 1700 1075 / 1075 Output Total 2390 / 2390 2850 / 2850 2425 / 2425 Balance -615 / -615 -1150 / -1150 -1350 / -1350 Lab / Micro Data Result Diagrams: 05/02/22 05:40 05/02/22 05:40 Labs: Laboratory Results - last 24 hr 05/02/22 05:40: Vancomycin Trough 14.3 05/02/22 05:40: Sodium 135 L, Potassium 3.6, Chloride 102, Carbon Dioxide 25.0, Anion Gap 8, BUN 10, Creatinine 0.77, Estim Creat Clear Calc 38.44, Est GFR (MDRD) Af Amer 94, Est GFR (MDRD) Non-Af 78, BUN/Creatinine Ratio 13.0, Glucose 117 H, Calcium 8.8 05/02/22 05:40: WBC 17.8 H, RBC 3.68 L, Hgb 11.3 L, Hct 35.1 L, MCV 95.4 D, MCH 30.7, MCHC 32.2 D, RDW Std Deviation 46.3 H, RDW Coeff of Luis Felipe 13.2, Plt Count 376, MPV 9.7, Neut % (Auto) Not Reportable, Absolute Neuts (auto) 13.6 H, Absolute Lymphs (auto) 0.71 L, Total Counted 100, Neutrophils % (Manual) 74 H, Band Neutrophils % 2, Lymphocytes % (Manual) 4 L, Monocytes % (Manual) 10, Metamyelocytes % 5 H, Myelocytes % 5 H, Diff Path Review May foll, Platelet Estimate ADEQUATE, RBC Morphology NORM C+C Micro: Microbiology 04/30/22 04:23 Blood Culture (Wb) - Left Forearm Blood Culture - Preliminary No growth in 48 hours. 04/28/22 15:50 Blood Culture (Wb) - Right Forearm Bacteria Detection (PCR) - Final Meth. resistant Staph. aureus 04/28/22 15:50 Blood Culture (Wb) - Right Forearm Blood Culture - Pr eliminary Meth. resistant Staph. aureus 04/28/22 15:05 Blood Culture (Wb) - Right Forearm Blood Culture - Preliminary Staphylococcus aureus 04/28/22 17:10 Urine, Clean Catch Urine Culture - Final Meth. resistant Staph. aureus 04/29/22 19:00 Nasal Secretion SARS-CoV-2 & FLU Antigen (Rapid) - Final 04/29/22 15:58 Mucosa - Nasopharyngeal Respiratory Panel (PCR) - Final Physical Exam Narrative alert, oriented x3 and no apparent distress Constitutional Narrative: Patient is morbidly obese General Appearance: cooperative, well kempt and well developed Orientation / Consciousness: awake, oriented to person, oriented to place and oriented to time HEENT normocephalic, head/scalp atraumatic and moist oral mucous membranes Eyes PERRL, EOMs intact bilaterally and conjunctivae normal Neck supple, no JVD, thyroid normal and no carotid bruits General: trachea midline Resp normal respiratory effort, no retractions, no use of accessory muscles and clear to auscultation bilaterally Auscultation: Negative for rales, rhonchi or wheezes Cardio regular rate, regular rhythm, S1 normal heart sound, S2 normal heart sound, no murmurs, no rub and no gallops GI normal to inspection, nondistended, normoactive bowel sounds, soft to palpation, non-tender and non-distended Extremity no clubbing, cyanosis or edema Neuro oriented x3, CN's II-XII intact bilaterally, moves all extremities, no focal motor deficits and no sensory deficits noted Sensorium / Orientation: awake, alert, oriented to person, oriented to place and oriented to time Speech: speech normal Psych affect normal Assessment & Plan Assessment/Plan (1) MRSA bacteremia: (2) Sepsis: PLAN: Plan Growth1. Sepsis secondary to MRSA urinary tract infection and inguinal abscess- patient will remain on vancomycin at this time under direction of infectious diseases. Last set of blood cultures resulted at 48 hours, there was a set of blood cultures ordered yesterday and also today. #2 essential hypertension-patient will remain on her present medications #3 acute kidney injury-patient's creatinine today was normal, labs will be monitored #4 morbid obesity-complicates care, medical course, recovery, and prognosis #5 hypokalemia-corrected at this time Total clinical time spent by myself addressing the patient's medical issues, reviewing all the data, and collaborating with patient's care team: 36 minutes Charges/Coding Visit Charges Inpatient E&M: 88758 Subs Hosp L2
[2022-05-02] MEDS: oxyCODONE 5 MG Tablet PO (18:30)
[2022-05-02] MEDS: Acetaminophen 325 MG Tablet 650 MG PO (18:30)
[2022-05-03 02:52] VITALS: PULSE 61
[2022-05-03 03:26] VITALS: BP 155/65; PULSE 63; RESP 14; TEMP 36.4; O2SAT 94
[2022-05-03 05:50] LABS: Hemoglobin 11.5 g/dL (12.0-15.0); Mean Corp Hgb Conc 31.9 g/dL (32-36); Mean Corpuscular Hgb 29.7 pg (27.0-32.0); Mean Platelet Vol. 9.8 fl (6.2-12.0); POSITIVE COUNT YES; POSITIVE MORPHOLOGY YES; Platelet Count 426 K/mm3 (150-450); RBC Distribution Width CV 13.1 % (11.6-14.6); Red Blood Count 3.87 M/mm3 (4.2-5.4)
[2022-05-03 06:02] LABS: Differential Indicated MANUAL DIFF
[2022-05-03 06:21] LABS: Anion Gap 7 (5-15); BUN 9 mg/dL (7-18); BUN/Creat Ratio 12.8 RATIO (10-20); Calcium,Total 8.8 mg/dL (8.5-10.1); Chloride 102 mmol/L (98-107); EST Glomerular Filtration Rate 86 mL/min (>60); Est Glom Filt Rate - Afr Amer 104 mL/min (>60); Estimated Creatinine Clearance 38.44 ml/min; Glucose 115 mg/dL (74-106); Potassium 3.8 mmol/L (3.5-5.1); Sodium Level 138 mmol/L (136-145)
[2022-05-03 06:24] LABS: Vancomycin, Trough Level 18.5 ug/mL (5.0-15.0)
[2022-05-03 07:02] LABS: Absolute Lymphocyte Count 1.52 X10^3/uL (0.83-4.51); Absolute Neutrophil Count 14.8 X10^3/uL (2.0-7.7); Eosinophil 1 % (0-5); Lymphocyte 8 % (19-41); Metamyelocyte 2 % (0-1); Monocyte 5 % (0-10); Myelocyte 6 % (0-0); Neutrophil-Band 7 % (0-5); Neutrophil-Segmented 71 % (47-70); Total Cells Counted 100 (MANUAL DIFF)
[2022-05-03 07:03] LABS: Atypical Lymphocyte 2+ %; Platelet Estimate ADEQUATE (ADEQ); Red Cell Morphology NORM C+C NORMAL (NORM C&C)
[2022-05-03] MEDS: Enoxaparin 40 MG/0.4 ML Syringe SC ×2 (08:29→21:39)
[2022-05-03] MEDS: amLODIPine 5 MG Tablet PO (08:30)
[2022-05-03] MEDS: Ascorbic Acid 500 MG Tablet 1000 MG PO (08:31)
[2022-05-03] MEDS: Famotidine 20 MG Tablet PO (08:31)
[2022-05-03] MEDS: Multivitamins,Ther W-Minerals Tablet 1 TABLET PO (08:31)
[2022-05-03] MEDS: Loratadine 10 MG Tablet PO (08:31)
[2022-05-03] MEDS: Aspirin E.C. 81 MG Tablet PO (08:31)
[2022-05-03] MEDS: Atenolol 50 MG Tablet PO ×2 (08:31→21:39)
[2022-05-03] MEDS: Cholecalciferol (Vit D3) 125 MCG CAPSULE (5,000 UNITS) PO (08:31)
[2022-05-03 08:34] VITALS: O2SAT 90
[2022-05-03 09:20] VITALS: BP 106/79; PULSE 67; RESP 20; TEMP 36.3; O2SAT 93
--- NOTE | 2022-05-03 12:30 | PCM.RX.CS ---
Consult Pharmacy has been consulted to manage selected antiobiotic: Vancomycin Type of Consult: Follow-up Labs: Sodium 138 mmol/L (136-145) 05/03/22 05:25 Potassium 3.8 mmol/L (3.5-5.1) 05/03/22 05:25 Chloride 102 mmol/L (98-107) 05/03/22 05:25 Carbon Dioxide 29.0 mmol/L (21.0-32.0) 05/03/22 05:25 Anion Gap 7 (5-15) 05/03/22 05:25 BUN 9 mg/dL (7-18) 05/03/22 05:25 Creatinine 0.70 mg/dL (0.55-1.02) 05/03/22 05:25 Est GFR (MDRD) Af Amer 104 mL/min (>60) 05/03/22 05:25 Est GFR (MDRD) Non-Af 86 mL/min (>60) 05/03/22 05:25 BUN/Creatinine Ratio 12.8 RATIO (10-20) 05/03/22 05:25 Glucose 115 mg/dL (74-106) H 05/03/22 05:25 Vancomycin Trough 18.5 ug/mL (5.0-15.0) H 05/03/22 05:25 Microbiology: Microbiology 04/30/22 04:23 Blood Culture (Wb) - Left Forearm Blood Culture - Preliminary Gram positive edmar 04/28/22 15:50 Blood Culture (Wb) - Right Forearm Bacteria Detection (PCR) - Final Meth. resistant Staph. aureus 04/28/22 15:50 Blood Culture (Wb) - Right Forearm Blood Culture - Preliminary Meth. resistant Staph. aureus 04/28/22 15:05 Blood Culture (Wb) - Right Forearm Blood Culture - Preliminary Staphylococcus aureus 04/28/22 17:10 Urine, Clean Catch Urine Culture - Final Meth. resistant Staph. aureus 04/29/22 19:00 Nasal Secretion SARS-CoV-2 & FLU Antigen (Rapid) - Final 04/29/22 15:58 Mucosa - Nasopharyngeal Respiratory Panel (PCR) - Final Goal Trough: 15-20 mcg/mL Pharmacy Plan for Drug Dosing: VANCOMYCIN LEVEL RECEIVED Current Vancomycin Dose: 1250mg q12h (06,18) Number of Doses Received: x5 of current dose Vancomycin Level: 18.5 Hours Since Last Dose: 11 hours since last dose Renal Function: SrCr 0.7 Renal Function Trend: SrCr improving (was 0.83 on 05/01 and 0.77 on 05/02) Lab/Micro: Vancomycin Plan/Comments: resulted trough of 18.5 is within the ordered goal trough 15-20. recommend continuing current dose of 1250mg q12h and checking trough in 4 more doses Pending Level: 05/05/22 at 0530 Pharmacy Service will continue to monitor and adjust dosing as required. Follow-Up Labs: Trough Vancomycin - 05/05/22 at 0530
[2022-05-03 13:29] LABS: Pathologist Review Reviewed
--- NOTE | 2022-05-03 13:33 | WOUNDNOTE ---
wound photo: mons pubis/labsaleem
[2022-05-03 13:47] LABS: Pathologist Review Reviewed
[2022-05-03 13:52] LABS: Pathologist Review Reviewed
[2022-05-03 14:04] LABS: Pathologist Review Reviewed
[2022-05-03 14:52] VITALS: BP 160/63; PULSE 72; RESP 20; TEMP 36.8; O2SAT 93
--- NOTE | 2022-05-03 14:55 | PCM.PN.ID ---
Physical Exam Narrative Feeling better, still with vulvar/inguinal redness and pain. No fever. Const alert and no apparent distress Resp normal air movement and clear to auscultation bilaterally Cardio regular rate and regular rhythm GI soft to palpation, non-tender and non-distended Extremity General Extremity: Negative for edema Skin Skin Narrative: inguinal/vulvar redness ID ID: Route of nutrition/ use of supplements: [] Nutritional Intake: [] IV Site: [] Lai Catheter: [] Assessment & Plan Assessment/Plan (1) MRSA bacteremia: PLAN: Sepsis due to MRSA bacteremia from inguinal abscess - bcx, wound cx, and ucx with MRSA. TTE neg for veg. Had I&D done by Dr. Randle as outpt. No sign of metastatic infection on exam. Bcx rapidly cleared here. Cont vanc. Plan on home with po linezolid if she continues to improve. Will follow, thank you (2) Soft tissue abscess of inguinal region: (3) Sepsis:
--- NOTE | 2022-05-03 16:49 | PN.HOSP_ITS ---
Subjective Subjective Patient was seen and examined today, her white blood cell count was slightly higher today at 19,000, I reviewed notes from infectious diseases, they plan on sending the patient home on Zyvox when she is stable medically. Objective Data Objective Data Vital Signs: Vital Signs Temp Pulse Resp BP Pulse Ox O2 Del Method FiO2 98.3 F 72 20 H 160/63 H 93 Room Air 94 05/03/22 14:52 05/03/22 14:52 05/03/22 14:52 05/03/22 14:52 05/03/22 14:52 05/03/22 14:52 04/30/22 12:44 Oxygen Delivery Method Room Air Weight: 111.6 kg Body Mass Index (BMI) 45.0 Intake & Output: Intake and Output for Last 24 Hours 05/01/22 05/02/22 05/03/22 23:59 23:59 23:59 Intake Total 1700 / 1700 1850 / 2150 1075.00 / 1075.00 Output Total 2850 / 2850 2725 / 3125 1700 / 1700 Balance -1150 / -1150 -875 / -975 -625.00 / -625.00 Lab / Micro Data Result Diagrams: 05/03/22 05:25 05/03/22 05:25 Labs: Laboratory Results - last 24 hr 04/30/22 08:17: Diff Path Review Reviewed 05/01/22 05:45: Diff Path Review Reviewed 05/02/22 05:40: Diff Path Review Reviewed 05/03/22 05:25: Vancomycin Trough 18.5 H 05/03/22 05:25: WBC 19.0 H, RBC 3.87 L, Hgb 11.5 L, Hct 36.0 L, MCV 93.0, MCH 29.7, MCHC 31.9 L, RDW Std Deviation 44.0 H, RDW Coeff of Luis Felipe 13.1, Plt Count 426, MPV 9.8, Neut % (Auto) Not Reportable, Absolute Neuts (auto) 14.8 H, Absolute Lymphs (auto) 1.52, Total Counted 100, Neutrophils % (Manual) 71 H, Band Neutrophils % 7 H, Lymphocytes % (Manual) 8 L, Monocytes % (Manual) 5, Eosinophils % (Manual) 1, Metamyelocytes % 2 H, Myelocytes % 6 H, Diff Path Review Reviewed, Atypical Lymphocytes 2+, Platelet Estimate ADEQUATE, RBC Morphology NORM C+C 05/03/22 05:25: Sodium 138, Potassium 3.8, Chloride 102, Carbon Dioxide 29.0, Anion Gap 7, BUN 9, Creatinine 0.70, Estim Creat Clear Calc 38.44, Est GFR (MDRD) Af Amer 104, Est GFR (MDRD) Non-Af 86, BUN/Creatinine Ratio 12.8, Glucose 115 H, Calcium 8.8 05/03/22 05:25: Magnesium 2.0 Micro: Microbiology 04/28/22 15:05 Blood Culture (Wb) - Right Forearm Blood Culture - Final Staphylococcus aureus 04/30/22 04:23 Blood Culture (Wb) - Left Forearm Blood Culture - Preliminary Gram positive edmar 04/28/22 15:50 Blood Culture (Wb) - Right Forearm Bacteria Detection (PCR) - Final Meth. resistant Staph. aureus 04/28/22 15:50 Blood Culture (Wb) - Right Forearm Blood Culture - Preliminary Meth. resistant Staph. aureus 04/28/22 17:10 Urine, Clean Catch Urine Culture - Final Meth. resistant Staph. aureus 04/29/22 19:00 Nasal Secretion SARS-CoV-2 & FLU Antigen (Rapid) - Final 04/29/22 15:58 Mucosa - Nasopharyngeal Respiratory Panel (PCR) - Final Physical Exam Narrative alert, oriented x3 and no apparent distress Constitutional Narrative: Patient is morbidly obese General Appearance: cooperative, well kempt and well developed Orientation / Consciousness: awake, oriented to person, oriented to place and oriented to time HEENT normocephalic, head/scalp atraumatic and moist oral mucous membranes Eyes PERRL, EOMs intact bilaterally and conjunctivae normal Neck supple, no JVD, thyroid normal and no carotid bruits General: trachea midline Resp normal respiratory effort, no retractions, no use of accessory muscles and clear to auscultation bilaterally Auscultation: Negative for rales, rhonchi or wheezes Cardio regular rate, regular rhythm, S1 normal heart sound, S2 normal heart sound, no murmurs, no rub and no gallops GI normal to inspection, nondistended, normoactive bowel sounds, soft to palpation, non-tender and non-distended Extremity no clubbing, cyanosis or edema Neuro oriented x3, CN's II-XII intact bilaterally, moves all extremities, no focal motor deficits and no sensory deficits noted Sensorium / Orientation: awake, alert, oriented to person, oriented to place and oriented to time Speech: speech normal Psych affect normal Assessment & Plan Assessment/Plan (1) Soft tissue abscess of inguinal region: (2) MRSA bacteremia: (3) Sepsis: PLAN: Plan #1. Sepsis secondary to MRSA urinary tract infection and inguinal abscess- patient will remain on vancomycin at this time under direction of infectious diseases. It appears her blood cultures may have cleared at this time, I will await further direction from infectious diseases as to possible discharge home #2 essential hypertension-patient will remain on her present medications #3 acute kidney injury-patient's creatinine today was normal, labs will be monitored #4 morbid obesity-complicates care, medical course, recovery, and prognosis #5 hypokalemia-corrected at this time Total clinical time spent by myself addressing the patient's medical issues, reviewing all the data, and collaborating with patient's care team: 35 minutes Charges/Coding Visit Charges Inpatient E&M: 32584 Subs Hosp L2
[2022-05-03 21:00] VITALS: BP 146/61; PULSE 73; RESP 19; TEMP 36.5; O2SAT 92
[2022-05-04 03:00] VITALS: BP 140/62; PULSE 65; RESP 17; TEMP 36.7; O2SAT 94
[2022-05-04 08:16] VITALS: BP 167/60; PULSE 67; RESP 18; TEMP 37.2; O2SAT 93
[2022-05-04] MEDS: Enoxaparin 40 MG/0.4 ML Syringe SC ×2 (08:30→22:47)
[2022-05-04] MEDS: Famotidine 20 MG Tablet PO (08:30)
[2022-05-04] MEDS: Aspirin E.C. 81 MG Tablet PO (08:31)
[2022-05-04] MEDS: Atenolol 50 MG Tablet PO ×2 (08:31→22:47)
[2022-05-04] MEDS: Multivitamins,Ther W-Minerals Tablet 1 TABLET PO (08:31)
[2022-05-04] MEDS: amLODIPine 5 MG Tablet PO (08:31)
[2022-05-04] MEDS: Loratadine 10 MG Tablet PO (08:31)
[2022-05-04] MEDS: Ascorbic Acid 500 MG Tablet 1000 MG PO (08:32)
[2022-05-04] MEDS: Cholecalciferol (Vit D3) 125 MCG CAPSULE (5,000 UNITS) PO (08:32)
[2022-05-04] MEDS: Menthol/Lanolin/Calamine/Znox 113 GM Tube 1 APPLIC TOPICAL ×3 (08:33→22:47)
--- NOTE | 2022-05-04 10:11 | PCM.PN.ID ---
Physical Exam Narrative Feeling better, less red, less sore, no fever Const alert and no apparent distress Resp normal air movement and clear to auscultation bilaterally Cardio regular rate and regular rhythm GI soft to palpation, non-tender and non-distended Skin Skin Narrative: erythema improved ID ID: Route of nutrition/ use of supplements: [] Nutritional Intake: [] IV Site: [] Lai Catheter: [] Assessment & Plan Assessment/Plan (1) MRSA bacteremia: PLAN: Sepsis due to MRSA bacteremia from inguinal abscess - bcx, wound cx, and ucx with MRSA. TTE neg for veg. Had I&D done by Dr. Randle as outpt. No sign of metastatic infection on exam. Bcx rapidly cleared here. On vanc. Ok for home with po linezolid 10 more days. ID followup prn. Will follow, d/w adult protective caseworker (2) Soft tissue abscess of inguinal region: (3) Sepsis:
--- NOTE | 2022-05-04 10:39 | CASEMGMT ---
RENATO CORDOBA in discuss discharge planning. RN BERYL inquired if patient would like HHC at discharge. Patient is declining HHC at this time. A list of HHC providers including quality and resource use data and consistent with the patient?s preferred geographical region, medical needs, and insurance network were provided from the [employer] Guide. RENATO CORDOBA updated patient that if she would reconsider HHC after discharge to follow-up with PCP. RENATO CORDOBA called [facility] and inquired about cost of ATB Linezolid, cost is $68.28. RN BERYL updated patient regarding ATB cost. Patient had no further questions or concerns at this time.
[2022-05-04 11:08] LABS: Hematocrit 38.9 % (37-47); Hemoglobin 12.8 g/dL (12.0-15.0); Mean Corp Hgb Conc 32.9 g/dL (32-36); Mean Corpuscular Hgb 30.1 pg (27.0-32.0); Mean Corpuscular Volume 91.5 fL (81-99); Mean Platelet Vol. 9.3 fl (6.2-12.0); POSITIVE COUNT YES; POSITIVE MORPHOLOGY YES; Platelet Count 460 K/mm3 (150-450); RBC Distribution Width SD 42.6 fl (35.1-43.9); Red Blood Count 4.25 M/mm3 (4.2-5.4); White Blood Count 17.6 K/mm3 (4.4-11.0)
[2022-05-04 11:10] LABS: Differential Indicated MANUAL DIFF
[2022-05-04 11:35] LABS: Basophil 1 % (0-1); Lymphocyte 6 % (19-41); Metamyelocyte 3 % (0-1); Monocyte 4 % (0-10); Myelocyte 1 % (0-0); Neutrophil-Segmented 83 % (47-70); Promyelocyte 2 % (0-0); Total Cells Counted 100 (MANUAL DIFF)
--- NOTE | 2022-05-04 11:35 | PCM.PROGNOTE ---
Subjective Subjective Feeling much better. Breathing is better, pain is better. Would like catheter out prior to going home today. Objective Data Objective Data Vital Signs: Vital Signs Temp Pulse Resp BP Pulse Ox O2 Del Method FiO2 98.9 F 67 18 167/60 H 93 Room Air 94 05/04/22 08:16 05/04/22 08:16 05/04/22 08:16 05/04/22 08:16 05/04/22 08:16 05/04/22 08:21 04/30/22 12:44 Oxygen Delivery Method Room Air Weight: 111.6 kg Body Mass Index (BMI) 45.0 Intake & Output: Intake and Output for Last 24 Hours 05/02/22 05/03/22 05/04/22 23:59 23:59 23:59 Intake Total 1850 / 2150 1350.00 / 1350.00 275 / 275 Output Total 2725 / 3125 1700 / 2300 1402 / 1402 Balance -875 / -975 -350.00 / -950.00 -1127 / -1127 Lab / Micro Data Result Diagrams: 05/04/22 10:55 05/03/22 05:25 Labs: Laboratory Results - last 24 hr 04/30/22 08:17: Diff Path Review Reviewed 05/01/22 05:45: Diff Path Review Reviewed 05/02/22 05:40: Diff Path Review Reviewed 05/03/22 05:25: Diff Path Review Reviewed 05/04/22 10:55: WBC 17.6 H, RBC 4.25, Hgb 12.8, Hct 38.9, MCV 91.5, MCH 30.1, MCHC 32.9, RDW Std Deviation 42.6, RDW Coeff of Luis Felipe 13.0, Plt Count 460 H, MPV 9.3, Neut % (Auto) Not Reportable Micro: Microbiology 05/02/22 09:20 Blood Culture (Wb) - Anticubital Right Blood Culture - Preliminary No growth in 48 hours. 04/28/22 15:50 Blood Culture (Wb) - Right Forearm Bacteria Detection (PCR) - Final Meth. resistant Staph. aureus 04/28/22 15:50 Blood Culture (Wb) - Right Forearm Blood Culture - Final Meth. resistant Staph. aureus 04/28/22 15:05 Blood Culture (Wb) - Right Forearm Blood Culture - Final Staphylococcus aureus 04/30/22 04:23 Blood Culture (Wb) - Left Forearm Blood Culture - Preliminary Gram positive edmar 04/28/22 17:10 Urine, Clean Catch Urine Culture - Final Meth. resistant Staph. aureus 04/29/22 19:00 Nasal Secretion SARS-CoV-2 & FLU Antigen (Rapid) - Final 04/29/22 15:58 Mucosa - Nasopharyngeal Respiratory Panel (PCR) - Final Physical Exam Const alert, oriented x3 and no apparent distress HEENT normocephalic and head/scalp atraumatic Eyes General Eye: normal appearance of both eyes Neck supple General: trachea midline Chest inspection of chest normal Resp normal respiratory effort Resp Narrative: on nasal canula Effort and Inspection: able to speak in complete sentences Cardio regular rate Narrative: brooks draining clear yellow Skin Skin Narrative: significant improvement in edema and erythema of the cellulitis. wick in place in the right inguinal abscess pocket. Psych mental status grossly normal Assessment & Plan Assessment/Plan (1) MRSA bacteremia: (2) JOHN (acute kidney injury): (3) Sepsis: (4) Cellulitis: (5) Soft tissue abscess of inguinal region: PLAN: Plan continue antibiotics per ID brooks out with PVR bladder scan follow up in the office in 2-3 weeks
[2022-05-04 11:36] LABS: Platelet Estimate SLT INC (ADEQ); Red Cell Morphology NORM C+C NORMAL (NORM C&C)
[2022-05-04 11:39] LABS: Absolute Neutrophil Count 14.6 X10^3/uL (2.0-7.7)
--- NOTE | 2022-05-04 13:40 | RAD_ITS ---
STUDY: X-RAY CHEST REASON FOR EXAM: Female, 76 years old. Infiltrate TECHNIQUE: PA and lateral views of the chest. COMPARISON: Comparison is made with prior study dated 04/29/2022. FINDINGS: EKG electrodes are seen. Increasing left pleural effusion with left pulmonary atelectasis and/or infiltrate. Follow-up is recommended. There is no demonstrated pleural abnormality. Normal size heart. Normal mediastinum and micha. Normal visualized pulmonary arteries. There is atherosclerotic tortuosity of the aortic arch and descending thoracic aorta. There are diffuse degenerative changes of the visualized thoracic spine. Normal visualized ribs, clavicles, and shoulders. There is no demonstrated abnormality of the visualized soft tissue structures of the upper abdomen. RAD/Chest PA and Lateral IMPRESSION: Progressive increase in the left pleural effusion with left basilar atelectasis and/or infiltrate. Electronically Signed: Arron Alas MD at 14:38 EST ,
[2022-05-04 15:01] LABS: International Normalized Ratio 1.2; Prothrombin Time (Protime)PT. 14.6 SECONDS (11.7-14.9)
[2022-05-04 15:02] LABS: Partial Thromboplast Time 38.4 Seconds (24.1-36.2)
[2022-05-04 15:11] VITALS: BP 133/65; PULSE 67; RESP 18; TEMP 37.7; O2SAT 96
--- NOTE | 2022-05-04 16:24 | PN.HOSP_ITS ---
Subjective Subjective Patient was seen and examined today, she remains on nasal cannula oxygen and I ordered a chest x-ray today which showed a large left pleural effusion. The etiology of the pleural effusion is not apparent at this time, she will have a thoracentesis tomorrow, I reviewed the progress notes from urology and infectious diseases, patient will be changed to oral Zyvox when she is discharged in the hospital, urology removed her catheter-they told me they wanted to see her in 2 weeks after discharge. Objective Data Objective Data Vital Signs: Vital Signs Temp Pulse Resp BP Pulse Ox O2 Del Method O2 Flow Rate 99.8 F H 67 18 133/65 H 96 Nasal Cannula 2 05/04/22 15:11 05/04/22 15:11 05/04/22 15:11 05/04/22 15:11 05/04/22 15:11 05/04/22 15:19 05/04/22 15:11 FiO2 94 04/30/22 12:44 Oxygen Flow Rate (L/min) 2 Oxygen Delivery Method Nasal Cannula Weight: 111.6 kg Body Mass Index (BMI) 45.0 Intake & Output: Intake and Output for Last 24 Hours 05/02/22 05/03/22 05/04/22 23:59 23:59 23:59 Intake Total 1850 / 2150 1350.00 / 1350.00 275 / 275 Output Total 2725 / 3125 1700 / 2300 1502 / 1502 Balance -875 / -975 -350.00 / -950.00 -1227 / -1227 Lab / Micro Data Result Diagrams: 05/04/22 10:55 05/03/22 05:25 Labs: Laboratory Results - last 24 hr 05/04/22 10:55: WBC 17.6 H, RBC 4.25, Hgb 12.8, Hct 38.9, MCV 91.5, MCH 30.1, MCHC 32.9, RDW Std Deviation 42.6, RDW Coeff of Luis Felipe 13.0, Plt Count 460 H, MPV 9.3, Neut % (Auto) Not Reportable, Absolute Neuts (auto) 14.6 H, Absolute Lymphs (auto) 1.10, Total Counted 100, Neutrophils % (Manual) 83 H, Lymphocytes % (Man ual) 6 L, Monocytes % (Manual) 4, Basophils % (Manual) 1, Metamyelocytes % 3 H, Myelocytes % 1 H, Promyelocytes % 2 H, Diff Path Review May foll, Platelet Estimate SLT INC, RBC Morphology NORM C+C 05/04/22 10:55: PT 14.6, INR 1.2, APTT 38.4 H Micro: Microbiology 05/02/22 09:20 Blood Culture (Wb) - Anticubital Right Blood Culture - Preliminary No growth in 48 hours. 04/28/22 15:50 Blood Culture (Wb) - Right Forearm Bacteria Detection (PCR) - Final Meth. resistant Staph. aureus 04/28/22 15:50 Blood Culture (Wb) - Right Forearm Blood Culture - Final Meth. resistant Staph. aureus 04/28/22 15:05 Blood Culture (Wb) - Right Forearm Blood Culture - Final Staphylococcus aureus 04/30/22 04:23 Blood Culture (Wb) - Left Forearm Blood Culture - Preliminary Gram positive edmar 04/28/22 17:10 Urine, Clean Catch Urine Culture - Final Meth. resistant Staph. aureus 04/29/22 19:00 Nasal Secretion SARS-CoV-2 & FLU Antigen (Rapid) - Final 04/29/22 15:58 Mucosa - Nasopharyngeal Respiratory Panel (PCR) - Final Radiography Diagnostic Testing: Radiology Impression Chest X-Ray 05/04/22 13:40 IMPRESSION: Progressive increase in the left pleural effusion with left basilar atelectasis and/or infiltrate. Electronically Signed: Arron Alas MD at 14:38 EST Reading Location ID and State: [address] [place] [address] , Service support , Physical Exam Narrative alert, oriented x3 and no apparent distress Constitutional Narrative: Patient is morbidly obese General Appearance: cooperative, well kempt and well developed Orientation / Consciousness: awake, oriented to person, oriented to place and oriented to time HEENT normocephalic, head/scalp atraumatic and moist oral mucous membranes Eyes PERRL, EOMs intact bilaterally and conjunctivae normal Neck supple, no JVD, thyroid normal and no carotid bruits General: trachea midline Resp normal respiratory effort, no retractions, no use of accessory muscles, decreased breath sounds are noted of the left mid and lower lung field Auscultation: Negative for rales, rhonchi or wheezes Cardio regular rate, regular rhythm, S1 normal heart sound, S2 normal heart sound, no murmurs, no rub and no gallops GI normal to inspection, nondistended, normoactive bowel sounds, soft to palpation, non-tender and non-distended Extremity no clubbing, cyanosis or edema Neuro oriented x3, CN's II-XII intact bilaterally, moves all extremities, no focal motor deficits and no sensory deficits noted Sensorium / Orientation: awake, alert, oriented to person, oriented to place and oriented to time Speech: speech normal Psych affect normal Assessment & Plan Assessment/Plan (1) MRSA bacteremia: (2) Soft tissue abscess of inguinal region: (3) Sepsis: PLAN: Plan #1. Sepsis secondary to MRSA urinary tract infection and inguinal abscess- patient will remain on vancomycin at this time under direction of infectious diseases. It appears her blood cultures may have cleared at this time, patient will be discharged on Zyvox for outpatient antibiotic #2 essential hypertension-patient will remain on her present medications #3 acute kidney injury-patient's creatinine today was normal, labs will be monitored #4 morbid obesity-complicates care, medical course, recovery, and prognosis #5 hypokalemia-corrected at this time #6 large left pleural effusion-etiology unclear, thoracentesis will be performed tomorrow with analysis of the fluid #7 hypoxia-etiology unclear at this point, patient's pulse ox will be monitored #8 obstructive sleep apnea-patient remains on CPAP at night, 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
[2022-05-04 17:32] VITALS: O2SAT 80; O2SAT 93; O2SAT 94
[2022-05-04 22:26] VITALS: RESP 22
[2022-05-04 22:30] VITALS: BP 148/65; PULSE 75; RESP 18; TEMP 36.8; O2SAT 95
[2022-05-05] VITALS (9 sets, daily range): BP systolic 102–152; BP diastolic 46–88; PULSE 66–82; RESP 18–22; TEMP 36.5–37; O2SAT 91–97
--- NOTE | 2022-05-05 | FLU_PTH ---
PATIENT: MU GARDNER LOC: [facility] U#:[id number] AGE/SX: 76/F ROOM: [facility] RE04/28/[address]: Dr. Matthew Caro DO : 1945 BED: 1 DIS: 05/05/2022 SPEC #: [id number] RECD: 05/05/22 10:21 STATUS: ABIMAEL REMasha #: [id number] JULIANNE: 05/05/22 00:[address]: Matthew Caro DEPT: CYTOLOGY RECD BY: Ladonna Aviles ENTERED: 05/05/22 10:22 SP TYPE: Fluid OTHR DR: MD Dr. Fara Salazar MD Dr. Kathryn Lee, DO Dr. Nana Yaa Koram, MD Dr. Robert Leininger, MD Tissues: Pleural fluid, NOS Procedures: Special Stain Group II Surgery Specimen Level IV Cytospin Fluid HEADER OPERATION: Ultrasound-guided thoracentesis PRE-OP DIAGNOSIS: Left pleural effusion TISSUE SUBMITTED: Thoracentesis fluid for cytology DIAGNOSIS CYTOLOGY Thoracentesis fluid for cytology (cytospin and cell block): Negative for malignant cells. See comment. TESSA:kash 05/06/2022 COMMENT Correlation with clinical, radiologic findings and appropriate follow up are necessary. CYTOLOGY STUDY Slides are reviewed. CYTOLOGY GROSS Received is 80 ml of cloudy red fluid labeled with the patient's name and and designated per the requisition as thoracentesis. Submitted for cytology preparation including cell block. / kash 05/05/2022 TC:5 CPT: 13994, 22545
--- NOTE | 2022-05-05 01:36 | EKG12_ITS ---
Test Reason : RHYTHM CHANGE Blood Pressure : / mmHG Vent. Rate : 066 BPM Atrial Rate : 066 BPM P-R Int : 166 ms QRS Dur : 082 ms QT Int : 436 ms P-R-T Axes : 081 023 029 degrees QTc Int : 457 ms Sinus rhythm with frequent Premature ventricular complexes Otherwise normal ECG When compared with ECG of 14-AUG-2021 09:24, Premature ventricular complexes are now Present Confirmed by HERI BRANDT, CARLA ([id number]), digital editor KEISHA CHEN ([id number]) on 05/07/2022 9:05:32 AM Referred By: Confirmed By:RAPHAEL LIRIANO MD
[2022-05-05 03:23] LABS: ALB/GLOB Ratio 0.4 RATIO (0.9-2.4); AST(SGOT) 45 U/L (15-37); Alanine Aminotransfer ALT/SGPT 55 U/L (13-56); Albumin, Serum 1.9 g/dL (3.2-5.0); Alkaline Phosphatase 191 U/L (45-117); Anion Gap 7 (5-15); BUN 10 mg/dL (7-18); Chloride 101 mmol/L (98-107); Creatinine, Serum 0.77 mg/dL (0.55-1.02); EST Glomerular Filtration Rate 77 mL/min (>60); Est Glom Filt Rate - Afr Amer 94 mL/min (>60); Estimated Creatinine Clearance 38.44 ml/min; Globulin 4.9 g/dL (2.2-4.2); Glucose 119 mg/dL (74-106); Magnesium 2.4 mg/dL (1.6-2.6); Phosphorus 3.7 mg/dL (2.5-4.9); Potassium 3.9 mmol/L (3.5-5.1); Protein, Total 6.8 g/dL (6.4-8.2); Sodium Level 137 mmol/L (136-145)
[2022-05-05] MEDS: Menthol/Lanolin/Calamine/Znox 113 GM Tube 1 APPLIC TOPICAL (06:34)
[2022-05-05 06:55] LABS: Vancomycin, Trough Level 17.8 ug/mL (5.0-15.0)
--- NOTE | 2022-05-05 07:30 | PCM.RX.CS ---
Consult Pharmacy has been consulted to manage selected antiobiotic: Vancomycin Type of Consult: Follow-up Prior Doses of Antibiotics Received/Current Regimen: Presently on 1250mg iv q12h. Labs: Sodium 137 mmol/L (136-145) 05/05/22 02:58 Potassium 3.9 mmol/L (3.5-5.1) 05/05/22 02:58 Chloride 101 mmol/L (98-107) 05/05/22 02:58 Carbon Dioxide 29.0 mmol/L (21.0-32.0) 05/05/22 02:58 Anion Gap 7 (5-15) 05/05/22 02:58 BUN 10 mg/dL (7-18) 05/05/22 02:58 Creatinine 0.77 mg/dL (0.55-1.02) 05/05/22 02:58 Est GFR (MDRD) Af Amer 94 mL/min (>60) 05/05/22 02:58 Est GFR (MDRD) Non-Af 77 mL/min (>60) 05/05/22 02:58 BUN/Creatinine Ratio 13.0 RATIO (10-20) 05/05/22 02:58 Glucose 119 mg/dL (74-106) H 05/05/22 02:58 Vancomycin Trough 17.8 ug/mL (5.0-15.0) H 05/05/22 05:15 Microbiology: Microbiology 05/02/22 09:20 Blood Culture (Wb) - Anticubital Right Blood Culture - Preliminary No growth in 48 hours. 04/28/22 15:50 Blood Culture (Wb) - Right Forearm Bacteria Detection (PCR) - Final Meth. resistant Staph. aureus 04/28/22 15:50 Blood Culture (Wb) - Right Forearm Blood Culture - Final Meth. resistant Staph. aureus 04/28/22 15:05 Blood Culture (Wb) - Right Forearm Blood Culture - Final Staphylococcus aureus 04/30/22 04:23 Blood Culture (Wb) - Left Forearm Blood Culture - Preliminary Gram positive edmar 04/28/22 17:10 Urine, Clean Catch Urine Culture - Final Meth. resistant Staph. aureus 04/29/22 19:00 Nasal Secretion SARS-CoV-2 & FLU Antigen (Rapid) - Final 04/29/22 15:58 Mucosa - Nasopharyngeal Respiratory Panel (PCR) - Final Weight used for dosin.6 kg Estimated Creatinine Clearance: 74ml/min Goal Trough: 15-20 mcg/mL Pharmacy Plan for Drug Dosing: Trough today 17.8 and in goal range. Renal CrCl calculated to be ~74ml/min using an adjusted body weight of 74.5kg. Will continue same dose. New trough ordered for before another 4th dose per policy. Pharmacy Service will continue to monitor and adjust dosing as required. Follow-Up Labs: Trough Vancomycin - 2.2.23 @1730 before 1800 dose
--- NOTE | 2022-05-05 08:00 | US_ITS ---
PROCEDURE: ULTRASOUND GUIDED THORACENTESIS. DATE: 05/05/2022. INDICATION: Female, 76 years old. Left pleural effusion. PHYSICIAN: Arron Alas M.D. PROCEDURE: The risks, benefits, and alternatives to the procedure were explained to the patient. The specific risks of bleeding, infection, and pneumothorax requiring chest tube insertion were discussed and accepted. Written informed consent was obtained. Ultrasonographic evaluation of the left lower pleural space was carried out. An adequate pocket was identified. The patient was placed in the sitting, upright position. The overlying skin was prepped and draped in sterile fashion. 1% lidocaine was administered subcutaneously for local anesthesia. Under ultrasound guidance, a 5 Ukrainian thoracentesis needle/catheter system was advanced into the left posterior lower pleural fluid collection. Approximately 850 mL of blood tinged fluid was drained. The catheter was removed, and a sterile dressing was applied. A specimen was collected and sent to the laboratory for analysis, as requested by the referring clinician. The patient tolerated the procedure well. A chest x-ray was ordered. US/Thoracentesis W US IMPRESSION: Ultrasound-guided left thoracentesis. Electronically Signed: Arron Alas MD at 9:30 EST ,
[2022-05-05] MEDS: Lidocaine 2% (20 ml mdv) 20 ML Vial INFILT (08:35)
--- NOTE | 2022-05-05 08:45 | RAD_ITS ---
STUDY: X-RAY CHEST REASON FOR EXAM: Female, 76 years old. Post thora TECHNIQUE: AP inspiration and expiration views. COMPARISON: Comparison is made with prior study dated 05/04/2022. FINDINGS: The patient is status post left thoracentesis. No evidence of pneumothorax. Residual left pleural-parenchymal changes. RAD/Chest Insp/Exp 2 View IMPRESSION: Status post left thoracentesis. No evidence of pneumothorax. Electronically Signed: Arron Alas MD at 9:06 EST ,
[2022-05-05] MEDS: Atenolol 50 MG Tablet PO (09:57)
[2022-05-05] MEDS: Loratadine 10 MG Tablet PO (09:57)
[2022-05-05] MEDS: Famotidine 20 MG Tablet PO (09:57)
[2022-05-05] MEDS: Cholecalciferol (Vit D3) 125 MCG CAPSULE (5,000 UNITS) PO (09:57)
[2022-05-05] MEDS: Multivitamins,Ther W-Minerals Tablet 1 TABLET PO (09:57)
[2022-05-05] MEDS: amLODIPine 5 MG Tablet PO (09:57)
[2022-05-05] MEDS: Ascorbic Acid 500 MG Tablet 1000 MG PO (09:57)
[2022-05-05 10:15] LABS: Body Fluid Mononuclear WBC # 1.407 10^3/uL; Body Fluid Mononuclear WBC % 72.3 %; Body Fluid Polynuclear WBC # 0.538 10^3/uL; Body Fluid Polynuclear WBC % 27.7 %; Body Fluid Total Cells Counted 1.981 10^3/ul; Red Cell Count/Body Fluid 0.022 10^6/ul; White Blood Count/Body Fluid 1.945 10^3/uL
[2022-05-05 11:01] LABS: Auto B Fluid Analyzer BKGD Ct COUNTS W/IN LIMITS (W/IN LIMITS); Lymphocytes 55 %; Macrophages 1 %; Mesothelial Cells 5 %; Monocytes 7 %; Neutrophil (Segs) 32 %
[2022-05-05 11:02] LABS: Appearance/Body Fluid SL CLDY; Body Fluid QC Type(s) BF1Q; Color/Body Fluid RED; Source- Body Fluid THORACENTESIS
--- NOTE | 2022-05-05 11:43 | DCINST_ITS ---
Discharge Instructions Diet Discharge Diet: No restrictions Activity Discharge Activity: Return to Normal Activity Weight Bearing Status: Full weight bearing Follow Up Care Test Results: Test results from this visit will be discussed in further detail at your follow- up appointment, if applicable. Discharge Plan Admission Admit Date/Time: 04/28/22 18:37 Primary Reason for Your Visit: Right inguinal abscess, MRSA bacteremia Attending Provider: Matthew Caro Primary Care Provider: Brendon Gonzalez Consulting Providers: Mecca Barbosa ; Fara Randle ; Jai Miller ; Stacy Howard Instructions Patient Instructions: RAD RN Thoracentesis Dc Discharge Orders/Prescriptions Prescriptions: New linezolid 600 mg tablet 600 mg PO Q12H 10 Days Qty: 20 0RF menthol-zinc oxide [Calmoseptine] 0.44-20.6 % Ointment 1 applic topical TID Qty: 0 0RF Protocol: *Topical Application Instructions APPLICATION INSTRUCTIONS: affected areas Continued ascorbic acid (vitamin C) [Vitamin C] 500 MG tablet 1,000 mg PO DAILY Allergy Relief (cetirizine) 10 MG capsule 10 mg PO DAILY famotidine 20 mg Tablet 20 mg PO DAILY amlodipine-olmesartan 5-40 mg Tablet 1 tab PO DAILY aspirin 81 mg Tablet,Delayed Release (Dr/Ec) 81 mg PO DAILY oxycodone-acetaminophen 5-325 mg tablet 1 tab PO Q8H PRN (Reason: Pain) ibuprofen 200 mg Tablet 200 mg PO DAILY atenolol 50 mg Tablet 50 mg PO BID cranberry 500 mg Capsule 1,500 mg PO DAILY Multivitamin 50 Plus Tablet 1 tab PO DAILY cholecalciferol (vitamin D3) 125 mcg (5,000 unit) Tablet 125 mcg PO DAILY acetaminophen 500 mg tablet 500 mg PO BID Gemtesa 75 mg Tablet 75 mg PO DAILY Discontinued amoxicillin-pot clavulanate 875-125 mg tablet 1 tab PO BID Referrals / Follow Up: Brendon Gonzalez MD [Primary Care Provider] - In 1 Week (You will need to get a repeat chest x-ray performed) Fara Randle MD [Med Staff - Active Staff] - See Referral Note (In 2 weeks) Jai Camacho MD [Med Staff - Active Staff] - Within 2 Weeks Disposition Disposition (needs filled in before D/C Order can be placed): Home, Self Care
--- NOTE | 2022-05-05 11:44 | WOUNDNOTE ---
Pt currently sitting up in the chair talking with visitor.
--- NOTE | 2022-05-05 11:48 | DS.PCM_ITS ---
Providers Date of Admission: 04/28/22 Date of Discharge: 05/05/22 Primary Care Physician: Dr. Brendon Gonzalez MD Consultations 04/29/22 08:16 Consult: Onc/Wound/university relations director Routine Comment: Reason for Consult:: right inguinal and vaginal abscess wounds and cellulitits 04/29/22 11:36 Consult: Urology Routine Consulting Provider: Fara Randle Reason for Consult: seen in office EMERGENT Consult: No MD Notified: Yes Date Notified: 04/29/22 Time Notified: 11:36 Method of Notification: per ED Comments:: already seen patient this admit 04/29/22 14:58 Consult: Infectious Disease Routine Consulting Provider: Jai Miller Reason for Consult: Staph UTI EMERGENT Consult: No Notified: Yes Date Notified: 04/29/22 Time Notified: 14:58 Method of Notification: Text Reason For Visit: SEPSIS DUE TO CELLULITIS Diagnosis Discharge Diagnosis (1) MRSA bacteremia: Status: Acute Code(s): R78.81 - Bacteremia; B95.62 - Methicillin resistant Staphylococcus aureus infection as the cause of diseases classified elsewhere (2) Soft tissue abscess of inguinal region: Status: Acute Code(s): L02.214 - Cutaneous abscess of groin (3) Sepsis: Status: Acute Code(s): A41.9 - Sepsis, unspecified organism Plan #1. Sepsis secondary to MRSA urinary tract infection and inguinal abscess- patient will remain on vancomycin at this time under direction of infectious diseases. 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 #9 left lower lobe community-acquired pneumonia-present on admission Total clinical time spent by myself addressing the patient's medical issues, reviewing all the data, and collaborating with patient's care team: 37 minutes Medications at Discharge Home Medications ascorbic acid (vitamin C) 500 mg tablet (Vitamin C) 1,000 mg PO DAILY Supplement 02/26/15 cetirizine 10 mg capsule (Allergy Relief (cetirizine)) 10 mg PO DAILY Allergies 02/26/15 amlodipine 5 mg-olmesartan 40 mg tablet 1 tab PO DAILY blood pressure 08/12/21 famotidine 20 mg tablet 20 mg PO DAILY acid reflux 08/12/21 acetaminophen 500 mg tablet 500 mg PO BID pain 04/28/22 aspirin 81 mg tablet,delayed release 81 mg PO DAILY HEART HEALTH 04/28/22 atenolol 50 mg tablet 50 mg PO BID blood pressure 04/28/22 cholecalciferol (vitamin D3) 125 mcg (5,000 unit) tablet 125 mcg PO DAILY supplement 04/28/22 cranberry 500 mg capsule 1,500 mg PO DAILY supplement 04/28/22 ibuprofen 200 mg tablet 200 mg PO DAILY pain 04/28/22 meotzdefeygy-mhihbmry-ixyfri tablet (Multivitamin 50 Plus tablet) 1 tab PO DAILY supplement 04/28/22 oxycodone-acetaminophen 5 mg-325 mg tablet 1 tab PO Q8H PRN Pain 04/28/22 vibegron 75 mg tablet (Gemtesa) 75 mg PO DAILY OVERACTIVE BLADDER 04/28/22 linezolid 600 mg tablet 600 mg PO Q12H 10 days #20 tabs 05/04/22 menthol 0.44 %-zinc oxide 20.6 % topical ointment (Calmoseptine) 1 applic topical TID #0 grams 05/05/22 Hospital Course Operations None Procedures None Summary of Care Provided Minutes Spent on Discharge: 32 Hospital Course: 76-year-old white female presented to the emergency room after being sent in due to abnormal labs done as an outpatient. Patient was seen by her urologist the day before for pelvic infection, she had an area drained in her right groin and was started on amoxicillin. She was seen again by her urologist in the office and advised that the infection did not look improved and she had a high white blood cell count and elevated creatinine and was sent to the emergency room for work-up. Patient stated her symptoms started approximately 5 days prior. Work- up in the emergency room included a CBC which showed an elevated white blood cell count at 30.5, patient's creatinine was elevated at 1.98 and BUN was 30. He is lactic acid was 2.8, urinalysis showed 10-25 RBCs, 10-25 WBCs, and [address] of the abdomen pelvis revealed cellulitis and phlegmonous changes within the fat of the right groin with probable lymphadenitis. There is no evidence for focal abscess. Patient was admitted for sepsis and acute kidney injury, she was given IV fluids and IV antibiotics and seen in consultation by urology and infectious diseases, cultures finally grew out MRSA in the urine and from the inguinal wound area. Patient's blood culture was also positive for methicillin-resistant Staph aureus. Patient's labs were monitored, blood cultures ultimately turned negative, patient did develop a left pleural effusion and she underwent a left thoracentesis-it was felt that she probably had a community-acquired pneumonia present on admission. The fluid was probably a parapneumonic effusion. At the time of this dictation, final results are not available on the fluid. On 05/05/2022, patient was seen and examined: On examination she appeared in good health and spirits, she does not appear to be in any distress. Vital signs as documented. Skin warm and dry and without overt rashes. Neck without JVD, thy roid appears normal, trachea is midline, neck is supple. Lungs clear, normal air movement was noted. Heart exam notable for regular rhythm, normal sounds and absence of murmurs, rubs or gallops. Abdomen unremarkable and without evidence of organomegaly, masses, or abdominal aortic enlargement, bowel sounds are present in all 4 quadrants, no abdominal tenderness was noted. Extremities nonedematous, no cyanosis was noted, no clubbing was noted. Neuro: Cranial nerves II through XII are grossly intact, no focal motor deficits were noted, sensation to light touch and pinprick is intact, motor exam 5/5 throughout. Psych: Patient is alert and oriented x3, she does not appear anxious or depressed, she does not appear agitated. Patient appears stable for discharge on 05/05/2022. Weight / BMI Weight Weight: 111.6 kg Body Mass Index (BMI) 45.0 ABG / Lab / Microbiology Data Result Diagrams: 05/04/22 10:55 05/05/22 02:58 Laboratory: Laboratory Results - last 24 hr 05/04/22 10:55: PT 14.6, INR 1.2, APTT 38.4 H 05/05/22 02:58: Sodium 137, Potassium 3.9, Chloride 101, Carbon Dioxide 29.0, Anion Gap 7, BUN 10, Creatinine 0.77, Estim Creat Clear Calc 38.44, Est GFR (MDRD) Af Amer 94, Est GFR (MDRD) Non-Af 77, BUN/Creatinine Ratio 13.0, Glucose 119 H, Calcium 9.0, Phosphorus 3.7, Magnesium 2.4, Total Bilirubin 0.40, AST 45 H, ALT 55, Alkaline Phosphatase 191 H, Total Protein 6.8, Albumin 1.9 L, Globulin 4.9 H, Albumin/Globulin Ratio 0.4 L 05/05/22 05:15: Vancomycin Trough 17.8 H 05/05/22 08:00: Fluid Source THORACENTESIS, Fluid Color RED, Fluid Appearance SL CLDY, Fluid WBC 1.945, Fluid RBC 0.022, Fluid Tot Cell Count 1.981 H, Fld Polynuclear WBCs # 0.538, Fld Polynuclear WBCs % 27.7, Fluid Mononuclear WBCs 1.407, Fld Mononuclear WBCs % 72.3, Fluid Neutrophils 32, Fluid Lymphocytes 55, Fluid Monocytes 7, Fluid Macrophages 1, Fld Mesothelial Cells 5, Fl Pathologist Comment May follow, Fluid Comment 2 Not Reportable Microbiology: Microbiology 05/02/22 09:20 Blood Culture (Wb) - Anticubital Right Blood Culture - Preliminary No growth in 48 hours. 04/28/22 15:50 Blood Culture (Wb) - Right Forearm Bacteria Detection (PCR) - Final Meth. resistant Staph. aureus 04/28/22 15:50 Blood Culture (Wb) - Right Forearm Blood Culture - Final Meth. resistant Staph. aureus 04/28/22 15:05 Blood Culture (Wb) - Right Forearm Blood Culture - Final Staphylococcus aureus 04/30/22 04:23 Blood Culture (Wb) - Left Forearm Blood Culture - Preliminary Gram positive edmar 04/28/22 17:10 Urine, Clean Catch Urine Culture - Final Meth. resistant Staph. aureus 04/29/22 19:00 Nasal Secretion SARS-CoV-2 & FLU Antigen (Rapid) - Final 04/29/22 15:58 Mucosa - Nasopharyngeal Respiratory Panel (PCR) - Final Radiography Diagnostic Testing: Radiology Impression Chest X-Ray 05/04/22 13:40 IMPRESSION: Progressive increase in the left pleural effusion with left basilar atelectasis and/or infiltrate. Electronically Signed: Arron Alas MD at 14:38 EST , Thoracentesis Ultrasound 05/05/22 08:00 IMPRESSION: Ultrasound-guided left thoracentesis. Electronically Signed: Arron Alas MD at 9:30 EST , Chest X-Ray 05/05/22 08:45 IMPRESSION: Status post left thoracentesis. No evidence of pneumothorax. Electronically Signed: Arron Alas MD at 9:06 EST , D/C Instructions Discharge Diet: No restrictions Weight Bearing Status: Full weight bearing Meaningful Use Info Meaningful Use Diagnoses (Choose all that apply): None applicable Discharge Plan Admission Admit Date/Time: 04/28/22 18:37 Primary Reason for Your Visit: Right inguinal abscess, MRSA bacteremia Attending Provider: Matthew Caro Primary Care Provider: Brendon Gonzalez Consulting Providers: Mecca Barbosa ; Fara Randle ; Jai Miller ; Stacy Howard Instructions Patient Instructions: MARILIN RN Thoracentesis Dc Discharge Orders/Prescriptions Prescriptions: New linezolid 600 mg tablet 600 mg PO Q12H 10 Days Qty: 20 0RF menthol-zinc oxide [Calmoseptine] 0.44-20.6 % Ointment 1 applic topical TID Qty: 0 0RF Protocol: *Topical Application Instructions APPLICATION INSTRUCTIONS: affected areas Continued ascorbic acid (vitamin C) [Vitamin C] 500 MG tablet 1,000 mg PO DAILY Allergy Relief (cetirizine) 10 MG capsule 10 mg PO DAILY famotidine 20 mg Tablet 20 mg PO DAILY amlodipine-olmesartan 5-40 mg Tablet 1 tab PO DAILY aspirin 81 mg Tablet,Delayed Release (Dr/Ec) 81 mg PO DAILY oxycodone-acetaminophen 5-325 mg tablet 1 tab PO Q8H PRN (Reason: Pain) ibuprofen 200 mg Tablet 200 mg PO DAILY atenolol 50 mg Tablet 50 mg PO BID cranberry 500 mg Capsule 1,500 mg PO DAILY Multivitamin 50 Plus Tablet 1 tab PO DAILY cholecalciferol (vitamin D3) 125 mcg (5,000 unit) Tablet 125 mcg PO DAILY acetaminophen 500 mg tablet 500 mg PO BID Gemtesa 75 mg Tablet 75 mg PO DAILY Discontinued amoxicillin-pot clavulanate 875-125 mg tablet 1 tab PO BID Referrals / Follow Up: Brendon Gonzalez MD [Primary Care Provider] - In 1 Week (You will need to get a repeat chest x-ray performed) Fara Randle MD [Med Staff - Active Staff] - See Referral Note (In 2 weeks) Jai Camacho MD [Med Staff - Active Staff] - Within 2 Weeks Disposition Disposition (needs filled in before D/C Order can be placed): Home, Self Care Charges/Coding Visit Charges Inpatient E&M: 58637 Disch Hosp >30min
[2022-05-05 12:13] LABS: Glucose, Body Fluid 127 mg/dL (40-70); LDH,Body Fluid 205 Units/l (Not Establ.); Protein, Body Fluid 4.1 g/dL (Not Establ.)
--- NOTE | 2022-05-05 12:17 | PHA.DC.MR ---
Pharmacy Service has performed discharge medication reconciliation for this patient. The patient's discharge medication list was reviewed for discrepancies and discrepancies were resolved. Patient in precautions, did not pediatric genetic counselor. Home Medications ascorbic acid (vitamin C) 500 mg tablet (Vitamin C) 1,000 mg PO DAILY Supplement 02/26/15 cetirizine 10 mg capsule (Allergy Relief (cetirizine)) 10 mg PO DAILY Allergies 02/26/15 amlodipine 5 mg-olmesartan 40 mg tablet 1 tab PO DAILY blood pressure 08/12/21 famotidine 20 mg tablet 20 mg PO DAILY acid reflux 08/12/21 acetaminophen 500 mg tablet 500 mg PO BID pain 04/28/22 aspirin 81 mg tablet,delayed release 81 mg PO DAILY HEART HEALTH 04/28/22 atenolol 50 mg tablet 50 mg PO BID blood pressure 04/28/22 cholecalciferol (vitamin D3) 125 mcg (5,000 unit) tablet 125 mcg PO DAILY supplement 04/28/22 cranberry 500 mg capsule 1,500 mg PO DAILY supplement 04/28/22 ibuprofen 200 mg tablet 200 mg PO DAILY pain 04/28/22 hzsjxefytwzt-foyqqjyl-dsbgjw tablet (Multivitamin 50 Plus tablet) 1 tab PO DAILY supplement 04/28/22 oxycodone-acetaminophen 5 mg-325 mg tablet 1 tab PO Q8H PRN Pain 04/28/22 vibegron 75 mg tablet (Gemtesa) 75 mg PO DAILY OVERACTIVE BLADDER 04/28/22 linezolid 600 mg tablet 600 mg PO Q12H 10 days #20 tabs 05/04/22 menthol 0.44 %-zinc oxide 20.6 % topical ointment (Calmoseptine) 1 applic topical TID #0 grams 05/05/22
[2022-05-05 12:35] LABS: LDH 169 U/L (84-246)
[2022-05-05 12:39] LABS: Pathologist Review Reviewed
[2022-05-07 09:35] LABS: Pathologist Comment/Body Fluid Reviewed
== END 2022-05-05 03:12 | disposition home or self-care (01) | DRG 871 ==
LOC: ED 17:53 → MS3 18:23 → PCU 18:53
PROVIDERS: Family Medicine; Internal Medicine; Urology; Admitting Provider Student in an Organized Health Care Education/Training Program; Emergency Provider Emergency Medicine; PCP Family Medicine; Visit Provider Internal Medicine
DX: A41.02 Sepsis due to Methicillin resistant Staphylococcus aureus (principal); J18.9 Pneumonia, unspecified organism; E87.20 Acidosis, unspecified; E87.1 Hypo-osmolality and hyponatremia; N73.0 Acute parametritis and pelvic cellulitis; N17.9 Acute kidney failure, unspecified; J90 Pleural effusion, not elsewhere classified; Z68.42 Body mass index [BMI] 45.0-49.9, adult; L03.311 Cellulitis of abdominal wall; L03.314 Cellulitis of groin; N39.0 Urinary tract infection, site not specified; L02.214 Cutaneous abscess of groin; E66.01 Morbid (severe) obesity due to excess calories; I88.9 Nonspecific lymphadenitis, unspecified; G47.33 Obstructive sleep apnea (adult) (pediatric); I10 Essential (primary) hypertension; J30.2 Other seasonal allergic rhinitis; K21.9 Gastro-esophageal reflux disease without esophagitis; I12.9 Hypertensive chronic kidney disease with stage 1 through stage 4 chronic kidney disease, or unspecified chronic kidney disease; N18.2 Chronic kidney disease, stage 2 (mild); E87.6 Hypokalemia; Z79.82 Long term (current) use of aspirin; Z66 Do not resuscitate; N25.89 Other disorders resulting from impaired renal tubular function; R09.02 Hypoxemia; B95.62 Methicillin resistant Staphylococcus aureus infection as the cause of diseases classified elsewhere
CPT/HCPCS: 32555; 36415; 36600; 71045; 71046; 74176; 80048; 80053; 80202; 81001; 82803; 82945; 83605; 83615; 83735; 83880; 83986; 84100; 84157; 84484; 85025; 85027; 85610; 85730; 87040; 87070; 87075; 87077; 87086; 87088; 87149; 87186; 87205; 87428; 87633; 88108; 88305; 88313; 89050; 93005; 93306; 94640; 97110; 97116; 97162; 97166; 97530; 97802; 99252; 99282; J7030; J7040; J7050; A4216; G0463; J1940; J3470

== ENCOUNTER → 2022-04-28 | Outpatient (CLI) | payer MEDICARE, SELFPAY ==
[2022-04-28 09:52] LABS: Hematocrit 38.1 % (37-47); Mean Corp Hgb Conc 34.1 g/dL (32-36); Mean Corpuscular Volume 90.7 fL (81-99); Mean Platelet Vol. 10.4 fl (6.2-12.0); Platelet Count 323 K/mm3 (150-450); RBC Distribution Width CV 12.5 % (11.6-14.6); RBC Distribution Width SD 41.4 fl (35.1-43.9); White Blood Count 26.6 K/mm3 (4.4-11.0)
[2022-04-28 10:22] LABS: Anion Gap 13 (5-15); BUN 26 mg/dL (7-18); BUN/Creat Ratio 14.4 RATIO (10-20); Calcium,Total 8.8 mg/dL (8.5-10.1); Chloride 94 mmol/L (98-107); Creatinine, Serum 1.81 mg/dL (0.55-1.02); EST Glomerular Filtration Rate 29 mL/min (>60); Est Glom Filt Rate - Afr Amer 35 mL/min (>60); Glucose 130 mg/dL (74-106); Potassium 3.7 mmol/L (3.5-5.1); Sodium Level 129 mmol/L (136-145)
== END | disposition home or self-care (01) ==
LOC: LAB.FUTURE 06:37 → LAB 08:24
PROVIDERS: PCP Family Medicine; Referring Provider Urology; Visit Provider Urology
DX: N76.4 Abscess of vulva (principal)
CPT/HCPCS: 36415; 80048; 85027; 87070; 87075; 87077; 87186; 87205

== ENCOUNTER → 2022-05-17 | Outpatient (CLI) | payer MEDICARE, SELFPAY ==
--- NOTE | 2022-05-17 14:14 | CT_ITS ---
STUDY: CT ABDOMEN AND PELVIS WITH AND WITHOUT CONTRAST REASON FOR EXAM: Female, 76 years old. LABIAL ABSCESS. Elevated white cell count. RADIATION DOSAGE (If Supplied By Facility): CTDIvol = ( 24.91 ) mGy, DLP = ( 4631.82 ) mGycm TECHNIQUE: Transaxial images were obtained from the dome of the diaphragm to the symphysis pubis without oral contrast. IV 100mL Isovue-300 was administered. Sagittal and coronal images were reconstructed. Individualized dose optimization techniques were used for this CT. COMPARISON: Comparison is made with prior study dated 04/28/2022. FINDINGS: Mild increase in size of the left pleural effusion with left basilar atelectasis. Coronary artery calcification. Stable cystic changes in the posterior segment of the right lobe of the liver with the surgical clip seen adjacent. Contracted stone filled gallbladder. Normal spleen. Normal pancreas. Normal bilateral adrenal glands. Normal right kidney. 2 mm calculus in the midportion of the left kidney. Normal visualized stomach. Normal small intestine. There are multiple colonic diverticula consistent with diverticulosis. The appendix is visualized and appears normal. There is scattered atherosclerotic calcification of the abdominal aorta, without a demonstrated aneurysm. Normal inferior vena cava. Normal retroperitoneum. Normal urinary bladder. Mild residual increased markings in the region of the right labium although this has improved as compared to prior study. There is absence of the uterus consistent with a prior hysterectomy. Prior anterior abdominal wall hernia repair with a mesh. There are diffuse degenerative changes of the visualized lumbar spine. Minimal anterior listhesis of L4 on L5. CT/CT Abd/Pelvis W/WO Contrast IMPRESSION: Mild persistent increased markings in the right labium although this has improved as compared to prior study. Interval increase in the left pleural effusion with left basilar atelectasis. The remainder of the examination is unchanged. Electronically Signed: Arron Alas MD at 15:31 EST ,
== END | disposition home or self-care (01) ==
LOC: CT 14:03
PROVIDERS: PCP Family Medicine; Referring Provider Urology; Visit Provider Urology
DX: N76.4 Abscess of vulva (principal)
CPT/HCPCS: 74178; Q9967

== ENCOUNTER → 2022-06-11 | Outpatient (CLI) | payer MEDICARE, SELFPAY ==
--- NOTE | 2022-06-11 09:35 | RAD_ITS ---
EXAM: XR CHEST, 2 VIEWS CLINICAL INDICATION: pneumonia TECHNIQUE: Frontal and lateral views of the chest. This report was created using [employer] report generation technology. COMPARISON: May 05, 2022. FINDINGS: LUNGS AND PLEURAL SPACES: Previous left-sided pleural-parenchymal disease has resolved. No pneumothorax. No effusion. HEART: Unremarkable. Cardiac silhouette not enlarged. MEDIASTINUM: Central airways and mediastinal contour are unremarkable. BONES/JOINTS: Up to moderate degenerative changes of the spine and acromioclavicular joints bilaterally. SOFT TISSUES: Unremarkable. RAD/Chest PA and Lateral IMPRESSION: No acute disease. Electronically Signed: Jose Culver MD at 4:36 EST ,
== END | disposition home or self-care (01) ==
LOC: MTRAD 09:32
PROVIDERS: PCP Family Medicine; Referring Provider Family Medicine; Visit Provider Family Medicine
DX: J18.9 Pneumonia, unspecified organism (principal)
CPT/HCPCS: 71046

== ENCOUNTER → 2022-08-18 | Outpatient (CLI) | payer MEDICARE, SELFPAY ==
[2022-08-18 10:59] LABS: Erythrocyte Sedimentation Rate 28 mm/hr (0-30)
[2022-08-18 11:01] LABS: Absolute Lymphocyte Count 1.32 X10^3/uL (0.83-4.51); Absolute Neutrophil Count 5.5 X10^3/uL (2.0-7.7); Basophil# 0.09 X10^3/uL; Basophil% 1.1 % (0-1); Eosinophil# 0.22 X10^3/uL; Eosinophils% 2.7 % (0-5); Hematocrit 42.7 % (37-47); Hemoglobin 13.7 g/dL (12.0-15.0); Lymphocyte # 1.32 X10^3/ul (0.83-4.51); Mean Corp Hgb Conc 32.1 g/dL (32-36); Mean Corpuscular Hgb 29.7 pg (27.0-32.0); Mean Corpuscular Volume 92.6 fL (81-99); Monocyte# 0.89 X10^3/uL; Monocyte% 10.8 % (0-10); NRBC Flagged by Analyzer 0 % (0-5); Neutrophil # 5.48 X10^3/uL (2.7-7.7); Neutrophil % 66.4 % (47-70); Platelet Count 365 K/mm3 (150-450); RBC Distribution Width CV 12.7 % (11.6-14.6); RBC Distribution Width SD 43.1 fl (35.1-43.9); Red Blood Count 4.61 M/mm3 (4.2-5.4); White Blood Count 8.3 K/mm3 (4.4-11.0)
[2022-08-18 11:23] LABS: ALB/GLOB Ratio 0.7 RATIO (0.9-2.4); AST(SGOT) 22 U/L (15-37); Alanine Aminotransfer ALT/SGPT 25 U/L (13-56); Albumin, Serum 2.9 g/dL (3.2-5.0); Alkaline Phosphatase 77 U/L (45-117); Anion Gap 8 (5-15); BUN 12 mg/dL (7-18); BUN/Creat Ratio 11.9 RATIO (10-20); Calcium,Total 8.7 mg/dL (8.5-10.1); Chloride 106 mmol/L (98-107); Cholesterol 131 mg/dL (200); Creatinine, Serum 1.01 mg/dL (0.55-1.02); EST Glomerular Filtration Rate 57 mL/min (>60); Est Glom Filt Rate - Afr Amer 69 mL/min (>60); Globulin 4.2 g/dL (2.2-4.2); Glucose 106 mg/dL (74-106); High Density Lipoprotein 32 mg/dL; Potassium 3.8 mmol/L (3.5-5.1); Protein, Total 7.1 g/dL (6.4-8.2); Sodium Level 137 mmol/L (136-145); Thyroid Stim Hormone (TSH) 0.94 uIU/mL (0.358-3.74); Triglycerides 141 mg/dL; Very Low Density Lipoprotein 28 mg/dL (5-40)
== END | disposition home or self-care (01) ==
LOC: MTLAB 09:23
PROVIDERS: PCP Family Medicine; Referring Provider Family Medicine; Visit Provider Family Medicine
DX: R19.7 Diarrhea, unspecified (principal); I10 Essential (primary) hypertension
CPT/HCPCS: 36415; 80053; 80061; 84443; 85025; 85652

== ENCOUNTER → 2022-08-19 | Outpatient (CLI) | payer MEDICARE, SELFPAY | END | disposition home or self-care (01) | LOC: LAB 08-23 16:41 | PROVIDERS: PCP Family Medicine; Visit Provider Family Medicine | DX: R19.7 Diarrhea, unspecified (principal) | CPT/HCPCS: 87493 ==

== ENCOUNTER → 2022-10-26 | Outpatient (CLI) | payer MEDICARE, SELFPAY ==
--- NOTE | 2022-10-26 12:05 | BI_ITS ---
MAMMOGRAPHY - BILATERAL SCREENING REASON FOR EXAM: Female, 77 years old. Routine annual screening examination. PERTINENT HISTORY: Sisters with breast cancer. Mother with breast cancer. Prior left stereotactic and excisional left breast biopsy. TECHNIQUE: Digital bilateral breast constance (3D mammographic acquisition) in the CC and MLO projections. 2-D mediolateral oblique (MLO) and craniocaudad (CC) views of both breasts were obtained. CAD: Full Field Digital Mammography with Computer Added Detection was performed. COMPARISON: Comparison is made with prior study October 23, 2021 and August 28, 2020. FINDINGS: Breast Composition: There are scattered areas of fibroglandular density. There are no dominant masses or suspicious calcifications. The previously seen nodule in the central medial aspect of the right breast is not present at this time No other significant abnormalities are identified. BI/SCRN MAMM (CAD)W/CONSTANCE BILAT IMPRESSION: Stable bilateral screening mammogram. Yearly follow-up mammogram recommended. (A) ASSESSMENT CATEGORY: BIRADS Category 2: Benign. A letter regarding these results will be sent to the patient by the facility within 30 days. Approximately 10% of breast cancers are not detected by mammography. A normal mammogram should not delay biopsy of a clinically suspicious abnormality. [id number] Electronically Signed: Arron Alas MD at 13:52 EDT ,
--- NOTE | 2022-10-26 12:11 | BD_ITS ---
STUDY: DUAL ENERGY X-RAY ABSORPTIOMETRY / DXA REASON FOR EXAM: Female, 77 years old. [id number] TECHNIQUE: Bone Mineral Density (BMD) measurements of lumbar spine and right forearm were obtained. COMPARISON: Comparison is made with prior study of August 14, 2019. FINDINGS: Lumbar Spine (L1-L4): g/cm2 (1.242) / T-score (1.9) / Z-score (4.3) Findings are suggestive of normal bone density with a low fracture risk. Right Forearm: g/cm2 (0.511) / T-score (-1.3) / Z-score (1.3) The T-Scores on the most recent prior examination were: Lumbar Spine (L1-L4): There has been worsening of bone density since the previous examination. BD/Dexa Bone Density Study IMPRESSION: The patient is considered osteopenic as outlined below according to World [employer] Organization (WHO) criteria with a low fracture risk. There has been worsening of bone density since the previous examination. Reference Information: The T-score is the number of standard deviations above or below the standard which is normal for young adults at their peak bone mineral density. The World Health Organization (WHO) interprets the T-scores as follows: Above -1 Normal bone density Between -1 and -2.5 Osteopenia Equal to / or below -2.5 Osteoporosis As a practical clinical guideline, osteopenia may be graded as follows: Mild -1 through -1.5 Moderate -1.6 through -2.0 Severe -2.1 through -2.4 The Z-score is the number of standard deviations above or below age-matched controls. A Z-score of less than -1.5 would be considered abnormal. References: 1. NIH Osteoporosis and Related Bone Diseases www osteo.org 2. International Society for Clinical Densitometry www iscd.org 3. National Osteoporosis Foundation www nof.org Electronically Signed: Arron Alas MD at 14:07 EDT ,
== END | disposition home or self-care (01) ==
LOC: OPBD 12:04
PROVIDERS: PCP Family Medicine; Referring Provider Family Medicine; Visit Provider Family Medicine
DX: Z12.31 Encounter for screening mammogram for malignant neoplasm of breast (principal); Z80.3 Family history of malignant neoplasm of breast; Z78.0 Asymptomatic menopausal state
CPT/HCPCS: 77063; 77067; 77080

== ENCOUNTER → 2023-02-21 | Outpatient (CLI) | payer MEDICARE, SELFPAY ==
[2023-02-21 13:37] LABS: Anion Gap 5 (5-15); BUN 20 mg/dL (7-18); BUN/Creat Ratio 23.7 RATIO (10-20); Calcium,Total 8.9 mg/dL (8.5-10.1); Chloride 107 mmol/L (98-107); Creatinine, Serum 0.84 mg/dL (0.55-1.02); EST Glomerular Filtration Rate 70 mL/min (>60); Est Glom Filt Rate - Afr Amer 84 mL/min (>60); Glucose 96 mg/dL (74-106); Potassium 4.2 mmol/L (3.5-5.1); Sodium Level 139 mmol/L (136-145)
[2023-02-22 14:09] LABS: Deamidated Gliadin IgA 5 units (0-19); Deamidated Gliadin IgG 3 units (0-19); Endomysial Antibody IgA Negative (Negative); Immunoglobulin A 168 mg/dL (64-422); t-Transglutaminase IgA <2 U/mL (0-3)
== END | disposition home or self-care (01) ==
LOC: MFPLAB 10:32
PROVIDERS: PCP Family Medicine; Visit Provider Family Medicine
DX: I10 Essential (primary) hypertension (principal); R80.9 Proteinuria, unspecified
CPT/HCPCS: 36415; 80048; 82784; 83516; 86255

== ENCOUNTER → 2023-03-23 | Outpatient (CLI) | payer MEDICARE, SELFPAY ==
[2023-03-30 14:08] LABS: Pancreatic Elastase, Fecal 411 (>200)
== END | disposition home or self-care (01) ==
LOC: LABSPEC 10:58
PROVIDERS: PCP Family Medicine; Visit Provider Family Medicine
DX: K58.9 Irritable bowel syndrome, unspecified (principal)
CPT/HCPCS: 82653

== ENCOUNTER → 2023-10-28 | Outpatient (CLI) | payer MEDICARE, SELFPAY ==
--- NOTE | 2023-10-28 10:10 | BI_ITS ---
MAMMOGRAPHY - BILATERAL SCREENING REASON FOR EXAM: Female, 78 years old. Routine annual screening examination. PERTINENT HISTORY: Sisters with breast cancer. Mother with breast cancer. History of prior left excisional breast biopsy and left stereotactic breast biopsy. TECHNIQUE: Digital bilateral breast constance (3D mammographic acquisition) in the CC and MLO projections. 2-D mediolateral oblique (MLO) and craniocaudad (CC) views of both breasts were obtained. CAD: Full Field Digital Mammography with Computer Added Detection was performed. COMPARISON: Comparison is made with prior study dated October 26, 2022 and October 23, 2021. FINDINGS: Breast Composition: There are scattered areas of fibroglandular density. There is a 4.6 mm x 8.8 mm nodule in the central lateral aspect of the right breast. Correlation with ultrasound is recommended. No other significant abnormalities are identified. BI/SCRN MAMM (CAD)W/CONSTANCE BILAT IMPRESSION: 4.6 mm x 8.8 mm nodule in the central lateral aspect of the right breast. Correlation with ultrasound is recommended. ASSESSMENT CATEGORY: BIRADS Category 0: Incomplete. Need additional imaging evaluation. A letter regarding these results will be sent to the patient by the facility within 30 days. Approximately 10% of breast cancers are not detected by mammography. A normal mammogram should not delay biopsy of a clinically suspicious abnormality. [id number] Electronically Signed: Arron Alas MD at 10:56 EDT ,
== END | disposition home or self-care (01) ==
LOC: OPBI 10:07
PROVIDERS: PCP Family Medicine; Referring Provider Family Medicine; Visit Provider Family Medicine
DX: Z12.31 Encounter for screening mammogram for malignant neoplasm of breast (principal); Z80.3 Family history of malignant neoplasm of breast
CPT/HCPCS: 77063; 77067

== ENCOUNTER → 2023-11-01 | Outpatient (CLI) | payer MEDICARE, SELFPAY ==
--- NOTE | 2023-11-01 08:23 | US_ITS ---
STUDY: ULTRASOUND BREAST - RIGHT REASON FOR EXAM: Female, 78 years old. Abnormal screening mammogram. TECHNIQUE: Axial and longitudinal images of the RIGHT breast were performed with a high resolution ultrasound transducer. # OF IMAGES: 21 COMPARISON: Comparison is made with prior study October 28, 2023. FINDINGS: RIGHT Breast: There is a 6 mm x 6 mm x 4 mm irregular heterogeneous hypoechoic solid nodule at the 9:00 position breast at 6 size from the nipple. Increased vascularity. Biopsy recommended. US/Breast Limited Unilateral IMPRESSION: The mammographic abnormality corresponds to a 6 mm x 6 mm x 4 mm hypoechoic irregular solid nodule with increased vascularity. Biopsy recommended. ASSESSMENT CATEGORY: BIRADS Category 4: Suspicious - Biopsy Should Be Considered. A letter regarding these results will be sent to the patient by the facility within 30 days. Electronically Signed: Arron Alas MD at 13:50 EDT ,
== END | disposition home or self-care (01) ==
LOC: OPUS 08:21
PROVIDERS: PCP Family Medicine; Visit Provider Family Medicine
DX: R92.8 Other abnormal and inconclusive findings on diagnostic imaging of breast (principal)
CPT/HCPCS: 76642

== ENCOUNTER 2023-11-23 07:24 | Outpatient (CLI) | payer MEDICARE, SELFPAY ==
--- NOTE | 2023-11-23 | IMM_PTH ---
PATIENT: MU GARDNER LOC: [facility] U#:[id number] AGE/SX: 78/F ROOM: RE11/23/[address]: Dr. Luis Alberto Darling MD : 1945 BED: DIS: 11/23/2023 SPEC #: [id number] RECD: 11/24/23 10:17 STATUS: ABIMAEL REQ #: [id number] JULIANNE: 11/23/23 00:[address]: Luis Alberto Darling DEPT: IMMUNOHISTOCHEMISTRY RECD BY: Sandro Martin ENTERED: 11/24/23 10:18 SP TYPE: IMMUNO OTHR DR: Dr. Elijah Gonzalez MD Tissues: Right breast, NOS Procedures: CALPONIN-1 (add) CK5-6 (add) CK8 (add) E-CAD (add) HER2 EMERY (add) KI-67 (add) P53 (add) AR (add) P40 (add) MOC-31 (add) ER (initial) PHYSICIAN & INSTITUTION [address] [address] SPECIMEN INFORMATION: Tissue Source: Right breast mass Clinical Info: Right breast mass Specimen Number: [id number] CPT code: 38829,36113o7,80946p7 METHODOLOGY: Deparaffinized sections of prefer/formalin-fixed tissue or PAP/DQ stained slides are incubated with monoclonal/polyclonal antibodies/oligonucleotide probes. Localization is made via biotin free immunoperoxidase method. Appropriate controls are performed and reacted as expected. Results on target cell population are indicated in the following table: RESULTS: ANTIBODY / CLONE RESULT P53 (DO-7) positive, wild type, dim Ki-67 (30-9) positive, 25% CK8 (30shtoQ95) positive CK5-6 (D5 & 1684) positive, focal Calponin-1 (GR527U) positive P40 (BC28) positive, focal E-Cad (ECH-6) positive MOC-31 (4561) positive MORPHOMETRIC ANALYSIS ER (clone 6F11) >95%, strong intensity AR (clone 16/1E2) 85%, moderate intensity Her-2Neu (clone CB11) 1-2+ The prognostic test for HER2 is performed on formalin-fixed paraffin embedded tissue. A 3+ (positive) staining pattern is defined as intense, homogeneous, complete, circumferential membranous staining in >10% of contiguous tumor cells. A similar weak (2+) staining pattern is interpreted as equivocal. LEE follow-up testing is recommended for all equivocal cases. Positivity/negativity for ER/AR is reported if > or < 1% of the tumor cells are immuno- reactive, respectively. The ASCO/CAP criteria is used for scoring. Reference: Journal of Clinical Oncology, 2013; 31:1108-3456 & 2010; 16:8371-2270. Ischemic time: Less than one hour. Duration of fixation: 11.5 Hrs; Sample Adequate: Yes. These assays have not been validated on decalcified tissues. Results should be interpreted with caution given the likelihood of false negativity on decalcified specimens or fixation greater than 72 hours. Alternative testing methods (FISH/dualISH for Her2; gene expression for ER) are recommended, if applicable. Please notify the laboratory if additional testing is required. These tests were developed and their performance characteristics determined by [facility]. They may not have been cleared or approved by the U.S. Food and Drug Administration. The FDA has determined that such clearance or approval is not necessary. The above immunohistochemical/dualISH markers are ordered and reviewed by the Pathologist. INTERPRETATION: Right breast, ultrasound guided core biopsy: Ductal carcinoma insitu. Positive for estrogen receptors (favorable prognostic indicator). Positive for progesterone receptors (favorable prognostic indicator). Equivocal for overexpression of IWI4nus. AM/mr 11/25/2023
--- NOTE | 2023-11-23 | BRBX_PTH ---
PATIENT: MU GARDNER LOC: [facility] U#:[id number] AGE/SX: 78/F ROOM: RE11/23/[address]: Dr. Luis Alberto Darling MD : 1945 BED: DIS: 11/23/2023 SPEC #: [id number] RECD: 11/23/23 08:57 STATUS: ABIMAEL REMasha #: [id number] JULIANNE: 11/23/23 00:[address]: Luis Alberto Darling DEPT: SURGICAL PATHOLOGY RECD BY: Ladonna Aviles ENTERED: 11/23/23 11:40 SP TYPE: BREAST BX OTHR DR: Dr. Elijah Gonzalez MD Tissues: Right breast, NOS Procedures: Surgery Specimen Level IV HEADER OPERATION: Ultrasound guided breast biopsy PRE-OP DIAGNOSIS: Right breast mass TISSUE SUBMITTED: Right breast mass 9 o'clock 6.0cm from nipple Ischemic Time: 1 minute Fixation Time: 11.5 hours MICROSCOPIC DIAGNOSIS Right breast mass, ultrasound guided core biopsy: Fragments of ductal carcinoma in situ, nuclear grade 1-2. Atypical ductal hyperplasia. See comment. Blossom 11/24/2023 COMMENT Immunohistochemistry ([id number]) supports the above diagnosis. Case has been reviewed in consultation with Dr. Hernandez who concurs with the above diagnosis. IDC:[email or web address] MICROSCOPIC DESCRIPTION Slides are reviewed. GROSS DESCRIPTION Received in fixative is one container labeled with the patient's name and designated Right breast tissue. The specimen consists of multiple elongated fragments of farrar-yellow fibroadipose tissue that in aggregate measure 2.5 x 2.0 x 0.1 cm. The specimen is totally submitted in one cassette. 11/23/2023 TC:0 CPT:18199
--- NOTE | 2023-11-23 07:25 | US_ITS ---
ULTRASOUND GUIDED CORE BIOPSY REASON FOR EXAM: Female, 78 years old. rt breast mass- BX PERTINENT HISTORY: Irregular heterogeneous hypoechoic nodule at the 9:00 position of the breast at 6 cm from nipple. COMPARISON: Comparison is made with prior sonogram dated November 01, 2023. TECHNIQUE: (All elements of maximal sterile barrier technique followed, including US elements as applicable) Upon arrival to the breast imaging department the patient''s identification was confirmed and the RIGHT breast was marked according to time-out protocol. Ultrasound guided core biopsy and clip placement, to include potential risks and complications, was explained in full to the patient. Written and verbal consent were obtained prior to initiation of the procedure. The RIGHT breast was prepped and draped in standard sterile fashion and local anesthesia was obtained with 1% buffered lidocaine. A small dermatotomy was then made to introduce the core biopsy needle. Under ultrasound guidance multiple core samples were obtained with a 11 gauge needle and submitted in formalin for pathology. A titanium clip was then deployed into the biopsy cavity under ultrasound guidance. Upon completion of the procedure hemostasis was obtained and sterile dressing was applied. The patient tolerated the entire procedure without immediate complication and was discharged from the breast imaging department in good condition. US/US Breast Biopsy 1st Lesion IMPRESSION: Ultrasound guided core biopsy of a mass in the RIGHT breast at 9:00 position breast at 6 cm from the nipple without complication. Electronically Signed: Arron Alas MD at 13:45 EDT ,
--- NOTE | 2023-11-23 09:10 | PCM.OP.PRO ---
Procedure Report Date of Procedure: 11/23/23 Procedure: Core needle biopsy of right breast Description: After a detailed discussion regarding the risks and benefits of the biopsy procedure, the patient was positioned supine on the gurney. Formal, written consents were obtained prior to positioning. Ultrasound was used to localize the lesion in the lateral aspect of the right breast 6 cm from the nipple. Locally 1% lidocaine was infiltrated about the mass using ultrasound guidance. Once the area was sufficiently anesthetized, a small stab incision was made in the skin and the 13-gauge mammotome core needle device was introduced percutaneously. Ultrasound was used to guide the tip of the device to the border of the suspicious lesion. Then the mass was serially sampled with 4 cores which were placed in solution for pathologic processing. Post?sampling ultrasound exam showed the hypoechoic area to have disappeared. A marking clip was then placed under ultrasound guidance within the void that previously represented the area of the mass. Pressure was applied until hemostasis was obtained. The skin was cleaned and Steri-Strips were applied over the stab incision for the biopsy procedure. Patient tolerated the procedure with no complications EBL: 2 mL Complications: None Procedures Integumentary [id number]: [id number] Bx breast 1st lesion us imag
== END 2023-11-23 23:59 | disposition home or self-care (01) ==
LOC: OPUS 07:24
PROVIDERS: PCP Family Medicine; Referring Provider Surgery; Visit Provider Surgery
DX: D05.91 Unspecified type of carcinoma in situ of right breast (principal); N60.91 Unspecified benign mammary dysplasia of right breast; R92.8 Other abnormal and inconclusive findings on diagnostic imaging of breast
CPT/HCPCS: 19083; 81002; 88305; 88341; 88342

== ENCOUNTER 2023-12-16 09:31 | Day surgery (SDC) | payer MEDICARE, SELFPAY ==
[2023-12-16] VITALS (8 sets, daily range): BP systolic 121–174; BP diastolic 79–106; PULSE 67–74; RESP 16; TEMP 36.3–36.5; O2SAT 94–99; BMI 47.2
--- NOTE | 2023-12-16 09:40 | PCM.PRE.AN2 ---
ASA Classification* ASA Classification ASA Classification: 3 Assessment & Plan Anesthesia* Anesthesia Assessment Anesthesia Assessment: Discussed sedation and/or anesthesia options, risks, benefits, and alternatives with patient/parents/legal guardian/POA. Questions invited. The patient/parents/legal guardian/POA seems to understand and agrees to proceed with anesthesia plan. Reviewed the physical assessment, medical history, allergy history and patient home medications list prior to surgery/procedure/anesthetic and documented any changes. Performed airway and anesthesia risk assessments. Anesthesia Type Anesthesia Type: General Anesthesia Focused Assessment* Airway Assessment Mouth opens: >3 cm Mallampati Score: II Focused Labs Anesthesia Preop lab: CBC WBC 8.3 K/mm3 (4.4-11.0) 08/18/22 09:38 RBC 4.61 M/mm3 (4.2-5.4) 08/18/22 09:38 Hgb 13.7 g/dL (12.0-15.0) 08/18/22 09:38 Hct 42.7 % (37-47) 08/18/22 09:38 Plt Count 365 K/mm3 (150-450) 08/18/22 09:38 CHEMISTRY Potassium 4.2 mmol/L (3.5-5.1) 02/21/23 10:32 Sodium 139 mmol/L (136-145) 02/21/23 10:32 Magnesium 2.4 mg/dL (1.6-2.6) 05/05/22 02:58 Phosphorus 3.7 mg/dL (2.5-4.9) 05/05/22 02:58 BUN 20 mg/dL (7-18) H 02/21/23 10:32 Creatinine 0.84 mg/dL (0.55-1.02) 02/21/23 10:32 Glucose 96 mg/dL (74-106) 02/21/23 10:32 POC Glucose 157 mg/dL (74-106) H 08/26/21 06:55 TSH 0.94 uIU/mL (0.358-3.74) 08/18/22 09:38 COAG PT 14.6 SECONDS (11.7-14.9) 05/04/22 10:55 Pre-Assessment Diagnosis/Proposed Procedure Planned Operative Procedure(s): Right Breast, Lumpectomy w/stereo wire loc Anesthesia History 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 When Was Last Pacemaker Check QUESTION #4 FULL TEXT: You/Your Family Experience fever (hyperthermia) with Anesthesia Last Oral Intake Last Oral intake: Last Oral Intake NPO since Meds taken in AM with sips of water? Meds patient instructed to take am of surgery PONV PONV - shoe cementer: PONV - shoe cementer Female Yes 12/14/23 15:05 HX of Motion Sickness No 12/14/23 15:05 HX of N/V After Surgery No 12/14/23 15:05 Non-Smoker Yes 12/14/23 15:05 Duration of Surgery greater Yes 12/14/23 15:05 than 60 minutes Number of Risk Factors 3 12/14/23 15:05 PONV Score Moderate Risk 12/14/23 15:05 Height & Weight Height & Weight: Anesthesia: Height & Weight Height 5 ft 2 in 12/15/23 07:43 Weight: 97.976 kg 12/15/23 07:43 Respiratory Assessment Respiratory Assessment - shoe cementer: Respiratory Tract Infection Hx - shoe cementer Hx Respiratory Tract Infection No 12/14/23 15:05 STOP Sleep Apnea STOP Sleep Apnea - shoe cementer: STOP Sleep Apnea - shoe cementer Hx Hypertension Yes: RECENT MED CHANGE 12/14/23 15:05 WITHIN LAST 6 MO, PT FEELS NOT CONTROLLED PREV. Hx Sleep Apnea Yes 12/14/23 15:05 CPAP Yes 12/14/23 15:05 BIPAP No 12/14/23 15:05 Do you snore loudly (louder than talking or can be heard Do you often feel tired/ fatigued/ sleepy during daytime? Has anyone observed you stop breathing during sleep? STOP Results Positive 12/14/23 15:05 QUESTION #5 FULL TEXT : Do you snore loudly (louder than talking or can be heard through closed doors)? 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 Specify any problems Hx of Preganancy in last 3 No 12/14/23 15:05 Months Nurse Filling Out Transfusion VCHRISTIN 12/14/23 15:05 & Questions: Date: 12/14/23 12/14/23 15:05 Time: 15:06 12/14/23 15:05 Patient unable to answer at this time (ie. confused, unrespo /Reproduction History /Reproductive History - shoe cementer: /Reproductive Hx- shoe cementer Hx Now Gestational Age (in weeks): EDC: Hx Hx Para Hx Section SAB No 12/14/23 15:05 Active Medications Active Medications: Current Medications Generic Name Dose Route Start Last Admin Trade Name Freq PRN Reason Stop Dose Admin Cefazolin Sodium 2 gm/ Sodium 110 mls @ 150 mls/hr 12/16/23 11:30 Chloride IV 12/16/23 12:13 PREOP ONE Lactated Ringer's 1,000 mls @ 15 mls/hr 12/16/23 09:45 IV .Q48H BERNY PFSH Medical History (Updated 12/14/23 @ 15:05 by Manuela Plasencia) History of IBS History of echocardiogram Soft tissue abscess of inguinal region Lactic acidosis Metabolic acidosis Hyponatremia Sepsis JOHN (acute kidney injury) Leukocytosis Cellulitis Wears hearing aid Wears glasses Post-menopausal Alcohol use Redness of skin Arthritis Bladder disease History of renal disease Easy bruising Back pain Gastric reflux Non-smoker CPAP (continuous positive airway pressure) dependence Asthma Shortness of breath on exertion Leg cramps History of pain when walking History of edema History of stress test Hypertension Hx of fracture of lower leg Home Medications ?Medication ?Instructions ?Recorded ?Last Taken ?Type ascorbic acid (vitamin C) 500 mg 500 mg PO DAILY Supplement 02/26/15 04/28/22 History tablet (Vitamin C) cetirizine 10 mg capsule (Allergy 10 mg PO DAILY Allergies 02/26/15 04/28/22 History Relief (cetirizine)) famotidine 20 mg tablet 20 mg PO DAILY acid reflux 08/12/21 04/28/22 History aspirin 81 mg tablet,delayed 81 mg PO DAILY HEART HEALTH 04/28/22 12/08/23 History release atenolol 50 mg tablet 100 mg PO QHS blood pressure 04/28/22 04/28/22 History cholecalciferol (vitamin D3) 125 125 mcg PO DAILY supplement 04/28/22 04/28/22 History mcg (5,000 unit) tablet cranberry 500 mg capsule 1,500 mg PO BID supplement 04/28/22 04/28/22 History ibuprofen 200 mg tablet 200 mg PO DAILY pain 04/28/22 04/28/22 History sjxyhmvzskry-cgailoeh-htpymz 1 tab PO DAILY supplement 04/28/22 04/28/22 History tablet (Multivitamin 50 Plus tablet) Lactobacillus acidophilus 10 100 mmu cells PO DAILY 12/14/23 Unknown History billion cell capsule (NewFlora) acetaminophen 500 mg capsule 500 mg PO Q6H PRN pain 12/14/23 Unknown History fesoterodine 4 mg tablet,extended 4 mg PO DAILY 12/14/23 Unknown History release 24 hr glucosam 500 mg-chondroit 66.7 1 tab PO BID 12/14/23 Unknown History mg-msm 500 mg-boron 2 mg-hyaluro tablet (Glucosamine-Chondr Complx (MSM-hyal)) losartan 50 mg tablet 50 mg PO DAILY 12/14/23 Unknown History melatonin 10 mg capsule 10 mg PO QHS 12/14/23 Unknown History turmeric 400 mg capsule 800 mg PO DAILY 12/14/23 Unknown History vitamin B complex (Complex B-100 1 tab PO DAILY 12/14/23 Unknown History tablet,extended release) Allergy/AdvReac Type Severity Reaction Status Date / Time Sulfa (Sulfonamide Allergy Rash Verified 12/14/23 14:52 Antibiotics) etodolac AdvReac KIDNEY Verified 12/14/23 14:52 ISSUES Family History Mother Breast cancer Sister Breast cancer Sister Breast cancer Surgical History (Updated 12/14/23 @ 15:05 by Manuela Plasencia) Hx of total hip arthroplasty Hx of colonoscopy Hx of umbilical hernia repair History of lumbar discectomy Hx of hysterectomy Hx of right knee surgery Hx of total knee arthroplasty Hx of total knee arthroplasty Hx of breast biopsy Social History (Updated 12/07/23 @ 14:16 by Stacie Valencia LPN) Smoking Status: Never smoker alcohol intake: never substance use type: does not use Review of Systems (Anesthesia) ROS Narrative System reviewed and no additional complaints, except as documented.
--- NOTE | 2023-12-16 09:52 | BI_ITS ---
SURGICAL BREAST SPECIMEN RADIOGRAPH CLINICAL: Document presence of tissue clip marker in biopsy specimen. FINDINGS: Specimen shows presence of tissue clip marker. Electronically Signed: Arron Alas MD at 8:10 EDT , BI/Breast Biopsy Specimen IMPRESSION: undefined
[2023-12-16] MEDS: Lactated Ringers 1,000 ML 15 ML IV (09:54)
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
--- NOTE | 2023-12-16 11:30 | BRBX_PTH ---
PATIENT: MU GARDNER [place] [facility] [id number] AGE/SX: 78/F ROOM: RE12/16/[address]: Dr. Luis Alberto Darling MD : 1945 BED: DIS: 12/16/2023 SPEC #: [id number] RECD: 12/16/23 13:27 STATUS: ABIMAEL AIRAM #: [id number] JULIANNE: 12/16/23 11:[address]: Luis Alberto Darling DEPT: SURGICAL PATHOLOGY RECD BY: Ladonna Aviles ENTERED: 12/16/23 13:43 SP TYPE: BREAST BX OTHR DR: Dr. Elijah Gonzalez MD Tissues: A - Right breast, NOS B - Right breast, NOS Procedures: Surgery Specimen Level V HEADER OPERATION: Right breast, lumpectomy with stereotactic wire localization PRE-OP DIAGNOSIS: Ductal carcinoma in situ (DCIS) of right breast TISSUE SUBMITTED: A- Right breast lesion * short stitch superior, long stitch lateral*, B- Right breast new superior margins *short stitch superior, long stitch lateral* MICROSCOPIC DIAGNOSIS A. Right breast lesion, lumpectomy: Focal Ductal carcinoma in situ. Changes of previous biopsy Extensive fat necrosis. Mild fibrocystic change. See synoptic report below. B. Right breast, new superior margin, biopsy: Mild fibrocystic change. Focal intraductal hyperplasia without atypia. Changes of previous biopsy. Rare banal microcalcifications. No evidence of malignancy. . 12/21/2023 COMMENT A. DUCTAL CARCINOMA IN SITU SUMMARY: Procedure - Lumpectomy Type- Partial breast Laterality- Right breast Size (extent of DCIS): 3.0 x 2.2 x 2.0mm Number of blocks - 1 of 8 Architectural pattern - Cribriform Nuclear grade - 1-2/3 Necrosis - Not identified Margin - Uninvolved by in situ carcinoma Distance from closest margin- 2.2mm from superior margin Regional lymph nodes: No lymph nodes identified Microcalcificaitons - present and associated with carcinoma Additional Pathologic Findings - Extensive fat necrosis and changes of previous biopsy, focal intraductal hyperplasia with mild atypia Ancillary Studies from previous specimen ([id number] / [id number] ): ER - positive (>95%, strong intensity) SD - positive (85%, moderate intensity) Her2 hugh (IHC) - Equivocal (1-2+) Her2 by dual serena- Not performed. Ki67 - positive (25%) Clinical history - Mass of breast PATHOLOGIC STAGING: T(DCIS) Nx Mx The above summary is in compliance with [employer] (CAP) Cancer Protocols Checklist and [place] Joint Committee on Cancer (AJCC), Staging Manual, 8th Ed. Case has been reviewed in consultation with Dr. Hernandez who concurs with the above diagnosis. IDC:SJ MICROSCOPIC DESCRIPTION Slides are reviewed. GROSS DESCRIPTION A. Received in fixative is one container labeled with the patient's name and designated Right breast lesion. The specimen consists of a piece of fibroadipose tissue with needle localization measuring 3.5 x 2.5 x 2.3cm. The specimen is oriented as follows: short superior, long lateral. The specimen is inked as follows: anterior - yellow, posterior - black, superior - blue, inferior - green, medial - red and lateral - orange. Serial sections do not reveal any obvious mass lesions. Also present in the container is a detached piece of adipose tissue measuring 2.0 x 2.0 x 0.4cm. The entire specimen is submitted in nine cassettes as follows: 1-8- oriented piece of tissue (cassette 1 contains the most superior portion, cassette 8 contains the most inferior portion), 9- detached piece of tissue. Sections are submitted after additional fixation. B .Received in fixative is one container labeled with the patient's name and designated Right breast new superior margins. The specimen consists of a piece of adipose tissue measuring 3.0 x 2.5 x 1.5cm. The specimen is inked as follows: new superior margin- black, old superior margin- blue, medial margin- red, lateral margin- orange. Sections do not reveal any mass lesions. Also present in the container are two detached pieces of adipose tissue measuring in aggregate 2.0 x 1.0 x 0.3cm. The entire specimen is submitted in four cassettes as follows: 1-3- oriented margin (cassette 1 containing more lateral and medial margin 2&3- rest of the oriented piece of tissue), 4- detached pieces of tissue. SJ.mr 12/19/2023 TC:[id number]
[2023-12-16] MEDS: Cefazolin 2 GM in 0.9% Normal Saline (100mL Bag) 100 ML IV (12:15)
--- NOTE | 2023-12-16 13:41 | OP.PCM_ITS ---
Report of Operation Date of Procedure: 12/16/23 Pre-Operative Diagnosis: Right breast ductal carcinoma in situ Post-Operative Diagnosis: Same Surgery/Procedure Performed:: 1. Stereotactic wire localization of right breast marking clip 2. Wire localization right breast lumpectomy 3. Excision of new superior margin Description of Surgical Findings:: ? Mammographic confirmation of marking clip, however, apparent close margin on superior aspect of surgical specimen Surgeon: Luis Alberto Darling hydraulic repairer: Matt Hilliard Type of Anesthesia: MAC/Supplemental/Local Anesthesiologist: Sanket Montero Specimen's removed: 1. Right breast lesion oriented short superior long lateral 2. New superior margin oriented short superior long lateral Estimated Blood Loss (mL): 5 Description of Procedure: Patient presented to the mammography suite from the preoperative holding area where she was positioned on the mammography table and placed into compression. Stereo images were taken of the right breast and the biopsy clip was targeted. A wire placement depth of 50 mm was selected to ensure that we were 1 cm beyond the clip. Then the surface of the breast was cleansed with povidone iodine and the needle was guided into position. X-ray views were obtained to confirm our depth adjacent to the clip, then the wire was deployed through the needle and the needle was removed from the breast. The wire was clipped distally to shortness of its length and the procedure was terminated. Mammographic views were obtained showing the wire position adjacent to clip. Patient was then sent to the preoperative holding area. After appropriate identification in the preoperative holding area, the patient was brought to the operating room where her preoperative antibiotics were completed. She was positioned supine on the operating room table with her arms out and underwent induction with anesthesia. An LMA airway was placed. Patient's operative site was then prepped and draped in usual sterile fashion. Formal timeout was conducted to confirm both patient and procedure. Local anesthetic was instilled in the appointed location for the incision and an approximately 4 cm medial incision to include the localization wire. This was deepened sharply through the dermis and then with the use of electrocautery through the breast tissue. Then a margin of normal breast tissue was established about the wire with electrocautery. An Allis clamp was placed around the wire to add stability for retraction of the specimen. Once we had obtained sufficient depth, the mass was extirpated free of the remaining breast tissue deeply. The specimen was removed from the surgical cavity and orientation was maintained until we were able to place orientation marking stitches designating short superior long lateral with a 2-0 silk. The surgical cavity was inspected for hemostasis and selective electrocautery was used to achieve it. The cavity was irrigated and all loose breast tissue was removed from the cavity. The specimen was sent first to mammography where they submitted several images showing our specimen had included both the localization wire as well as the marking clip. However, the x-ray image indicated that one of the margins adjacent clip appeared close and after conversing with mammography it appeared that this represented the superior margin. Thus I resolved to simply take a new superior lateral margin using electrocautery and o riented this new specimen similar first?short superior, long lateral. Once again the cavity was irrigated and inspected for hemostasis. Finding this to be intact the cavity was then closed at a deep dermal level with a running 3-0 Vicryl. Then the skin was closed in a subcuticular fashion with 4-0 Monocryl. Steri-Strips and Telfa OpSite was applied as a dressing. Patient was taken to PACU for ongoing coverage. Complications None Admit VTE Documentation VTE Mechan Device Prophylaxis: SCD's Procedures Integumentary [id number]: [id number] Partial mastectomy
[2023-12-16] MEDS: Bupiv/Epi 0.25% 30 ML Vial (13:49)
--- NOTE | 2023-12-16 13:57 | PCM.POST.ANE ---
Anesthesia: Postop Eval I Current Vital Signs Temperature: 97.4 F Pulse Rate: 69 Blood Pressure: 169/106 Respiratory Rate: 16 Pulse Ox: 95 Oxygen Delivery Method: Room Air Assessment Airway patent: Yes Spontaneous unlabored respirations: Yes Mental status: Awake and Calm nausea: No Vomiting: No Anesthesia Complication: No Fluid Hydration Crystalloid volume administer (ml): 700 Total IV fluid infused: 700 Progress Note Anesthesia document: Postop Eval 1 completed: Yes
--- NOTE | 2023-12-16 15:01 | DCINST_ITS ---
Discharge Instructions Diet Discharge Diet: No restrictions Activity Discharge Activity: May Drive (No driving while using narcotic pain medication) May shower in (days): 2 Ice area for (Minutes): 20 Lifting Restrictions: Limit lifting with left upper extremity to no more than 5 pounds Dressing / Incision Call your doctor if your incision/area has: Continuous Slow Oozing, Sudden Increased Bleeding, Increased Pain/ Swelling, Increased Redness, Foul Smelling Discharge and Swelling at the incision site Call your doctor if you observe: Fever of 101 or Higher Suture Line Care: Avoid Pulling/Pushing Remove Dressing in: 2 days Cleanse incision/area with: Soap & Water Additional Dressing/Incision Instructions:: Please leave Steri-Strips intact until they fall off spontaneously or are taken off at your follow-up visit Follow Up Care Please Follow Up With: Luis Alberto Darling MD When: 10-14 days postop Test Results: Test results from this visit will be discussed in further detail at your follow- up appointment, if applicable. Discharge Plan Admission Primary Reason for Your Visit: Right breast surgery Attending Provider: Luis Alberto Darling Primary Care Provider: Elijah Gonzalez Instructions Print Language: Romansh Discharge Orders/Prescriptions Prescriptions: Continued ascorbic acid (vitamin C) [Vitamin C] 500 MG tablet 500 mg PO DAILY Allergy Relief (cetirizine) 10 MG capsule 10 mg PO DAILY famotidine 20 mg Tablet 20 mg PO DAILY aspirin 81 mg Tablet,Delayed Release (Dr/Ec) 81 mg PO DAILY ibuprofen 200 mg Tablet 200 mg PO DAILY atenolol 50 mg Tablet 100 mg PO QHS cranberry 500 mg Capsule 1,500 mg PO BID Multivitamin 50 Plus Tablet 1 tab PO DAILY cholecalciferol (vitamin D3) 125 mcg (5,000 unit) Tablet 125 mcg PO DAILY losartan 50 mg tablet 50 mg PO DAILY fesoterodine 4 mg tablet extended release 24 hr 4 mg PO DAILY melatonin 10 mg capsule 10 mg PO QHS NewFlora 10 billion cell capsule 100 mmu cells PO DAILY Glucosamine-Chondr (MSM-hyal) 500-66.7-500-2 mg tablet 1 tab PO BID acetaminophen 500 mg capsule 500 mg PO Q6H PRN (Reason: pain) Complex B-100 Tablet Extended Release 1 tab PO DAILY turmeric 400 mg capsule 800 mg PO DAILY Referrals / Follow Up: Elijah Gonzalez MD [Primary Care Provider] - Disposition Disposition (needs filled in before D/C Order can be placed): Home, Self Care
--- NOTE | 2023-12-16 15:33 | POSTOPAN2_ITS ---
Anesthesia Postop Eval I Sum Postop Eval Completion status Anesthesia document: Postop Eval 1 completed: Yes Anesthesia Postop Eval I Summary Anesthesia Postop Eval I Summary: Anesthesia Postop Eval I: Assessment Summary Airway patent Yes 12/16/23 14:09 M1 [email or web address] Spontaneous unlabored Yes 12/16/23 14:09 M1 [email or web address] respirations Mental status Awake,Calm 12/16/23 14:09 M1 [email or web address] nausea No 12/16/23 14:09 M1 [employer] CREWMAN.SCHR Vomiting No 12/16/23 14:09 [facility] Anesthesia Postop Eval I: Fluid Summary Crystalloid volume administer 700 12/16/23 14:09 M1 ARMOR [email or web address].SCHR (ml) Colloids volume administered ( ml) Blood Product volume administered (ml) Total IV fluid infused 700 12/16/23 14:09 M[facility] Anesthesia Postop Eval I: Summary Notes Anesthesia Complication No 12/16/23 14:09 M1 [facility] Anesthesia Complication Comment: Post-operative progress note Anesthesia: Postop Eval II Evaluation Mental status: Awake Pain Level: 1 nausea: No Vomiting: No
--- NOTE | 2023-12-16 15:33 | PCM.POSTANE2 ---
Anesthesia Postop Eval I Sum Postop Eval Completion status Anesthesia document: Postop Eval 1 completed: Yes Anesthesia Postop Eval I Summary Anesthesia Postop Eval I Summary: Anesthesia Postop Eval I: Assessment Summary Airway patent Yes 12/16/23 14:09 [employer] MACHINE [email or web address] Spontaneous unlabored Yes 12/16/23 14:09 [employer] MACHINE MECHANIC.SCHR respirations Mental status Awake,Calm 12/16/23 14:09 [employer] MACHINE MECHANIC.SCHR nausea No 12/16/23 14:09 XEROX MACHINE MECHANIC.SCHR Vomiting No 12/16/23 14:09 [facility] Anesthesia Postop Eval I: Fluid Summary Crystalloid volume administer 700 12/16/23 14:09 XEROX MACHINE MECHANIC.SCHR (ml) Colloids volume administered ( ml) Blood Product volume administered (ml) Total IV fluid infused 700 12/16/23 14:09 [employer]CH[employer] Anesthesia Postop Eval I: Summary Notes Anesthesia Complication No 12/16/23 14:09 [employer]INE MECH[employer]IC[facility] Anesthesia Complication Comment: Post-operative progress note Anesthesia: Postop Eval II Evaluation Mental status: Awake Pain Level: 1 nausea: No Vomiting: No
== END 2023-12-16 15:27 | disposition home or self-care (01) ==
LOC: SDC 09:32 → AC 09:33
PROVIDERS: PCP Family Medicine; Referring Provider Surgery; Visit Provider Surgery
PROC: (CPT 19301; principal; 2023-12-16 11:15)
DX: D05.11 Intraductal carcinoma in situ of right breast (principal); N64.1 Fat necrosis of breast; N60.11 Diffuse cystic mastopathy of right breast; Z80.3 Family history of malignant neoplasm of breast; I10 Essential (primary) hypertension; K21.9 Gastro-esophageal reflux disease without esophagitis; Z79.899 Other long term (current) drug therapy; Z79.82 Long term (current) use of aspirin; J45.909 Unspecified asthma, uncomplicated; N62 Hypertrophy of breast
CPT/HCPCS: 19301; 19283; 00404; J3490; 19281; 76098; 88307; J7120; J2405

== ENCOUNTER 2024-07-10 04:03 | Emergency (ER) | payer MEDICARE, SELFPAY ==
[2024-07-10 04:04] VITALS: BP 209/99; PULSE 71; RESP 14; TEMP 36.8; O2SAT 94; BMI 21.4
[2024-07-10 04:09] VITALS: BP 247/66
--- NOTE | 2024-07-10 05:03 | EX.ED.DYSGE1 ---
HPI History of Present Illness Chief Complaint: Nosebleed Informant: patient and spouse/S.O. Narrative Narrative: Patient is a 79-year-old female with past medical history of hypertension as well as KARIN on CPAP. She states over the last 6 days she has been having intermittent bleeding out of her right nostril. She states that she has been able to get the bleeding to stop over the past 5 nights but today/night the bleeding occurred and was more intense and would not stop and secondary to this she comes in for evaluation. Patient denies any history of bleeding disorder or blood thinner use. She does admit to a baby aspirin daily. She states has been no recent trauma or sick symptoms prior to the nasal bleeding [facility] Medical History (Updated 07/10/24 @ 07:[address] Jose Alcantar, ) Encounter for education History of IBS History of echocardiogram Soft tissue abscess of inguinal region Lactic acidosis Metabolic acidosis Hyponatremia Sepsis JOHN (acute kidney injury) Leukocytosis Cellulitis Wears hearing aid Wears glasses Post-menopausal Alcohol use Redness of skin Arthritis Bladder disease History of renal disease Easy bruising Back pain Gastric reflux Non-smoker CPAP (continuous positive airway pressure) dependence Asthma Shortness of breath on exertion Leg cramps History of pain when walking History of edema History of stress test Hypertension Hx of fracture of lower leg Home Medications ?Medication ?Instructions ?Recorded ?Last Taken ?Type ascorbic acid (vitamin C) 500 mg 500 mg PO DAILY Supplement 02/26/15 04/28/22 History tablet (Vitamin C) cetirizine 10 mg capsule (Allergy 10 mg PO DAILY Allergies 02/26/15 04/28/22 History Relief (cetirizine)) famotidine 20 mg tablet 20 mg PO DAILY acid reflux 08/12/21 12/16/23 History aspirin 81 mg tablet,delayed 81 mg PO DAILY HEART HEALTH 04/28/22 12/08/23 History release atenolol 50 mg tablet 100 mg PO QHS blood pressure 04/28/22 12/16/23 History cholecalciferol (vitamin D3) 125 125 mcg PO DAILY supplement 04/28/22 04/28/22 History mcg (5,000 unit) tablet cranberry 500 mg capsule 1,500 mg PO BID supplement 04/28/22 04/28/22 History dielaiebznqr-yvtyqsdh-ivjqyz 1 tab PO DAILY supplement 04/28/22 04/28/22 History tablet (Multivitamin 50 Plus tablet) Lactobacillus acidophilus 10 100 mmu cells PO DAILY 12/14/23 Unknown History billion cell capsule (NewFlora) acetaminophen 500 mg capsule 500 mg PO Q6H PRN pain 12/14/23 Unknown History glucosam 500 mg-chondroit 66.7 1 tab PO BID 12/14/23 Unknown History mg-msm 500 mg-boron 2 mg-hyaluro tablet (Glucosamine-Chondr Complx (MSM-hyal)) losartan 50 mg tablet 50 mg PO DAILY 12/14/23 Unknown History melatonin 10 mg capsule 10 mg PO QHS 12/14/23 Unknown History vitamin B complex (Complex B-100 1 tab PO DAILY 12/14/23 Unknown History tablet,extended release) fesoterodine 4 mg tablet,extended 8 mg PO DAILY 03/19/24 Unknown History release 24 hr anastrozole 1 mg tablet 1 mg PO DAILY #90 tabs 03/20/24 Unknown Rx ibuprofen 200 mg tablet 200 mg PO DAILY PRN pain 03/20/24 Unknown History vibegron 75 mg tablet (Gemtesa) 75 mg PO DAILY 07/10/24 Unknown History Allergy/AdvReac Type Severity Reaction Status Date / Time Sulfa (Sulfonamide Allergy Rash Verified 07/10/24 04:04 Antibiotics) etodolac AdvReac KIDNEY Verified 07/10/24 04:04 ISSUES Family History Mother Breast cancer Sister Breast cancer Sister Breast cancer Father Heart disease Brother Heart disease Surgical History History of liver biopsy S/P lumpectomy of breast Hx of total hip arthroplasty Hx of colonoscopy Hx of umbilical hernia repair History of lumbar discectomy Hx of hysterectomy Hx of right knee surgery Hx of total knee arthroplasty Hx of total knee arthroplasty Hx of breast biopsy Social History Smoking Status: Never smoker alcohol intake: never substance use type: does not use ROS ROS ED Constitutional Constitutional ED: Denies chills or fever(s) Eyes Eyes: Denies blurry vision or change in vision ENT ENT ED: Reports other Details: Positive nosebleed Cardiovascular Cardiovascular: Denies chest pain Respiratory/Chest Respiratory/Chest: Denies cough or dyspnea Gastrointestinal Gastrointestinal: Denies abdominal pain, diarrhea, nausea or vomiting Genitourinary Genitourinary ED: Denies dysuria Musculoskeletal Musculoskeletal: Denies myalgias Integumentary Denies rash Neurologic Neurologic: Denies headache(s) Hematologic/Lymphatic Hematologic/Lymphatic: Denies easy bleeding or easy bruising EXAM Physical Exam Const Vital Signs: 07/10/24 04:04 07/10/24 04:09 Temperature 98.2 F Temperature Source Oral Pulse Rate 71 Respiratory Rate 14 Blood Pressure 209/99 H 247/66 H Blood Pressure Mean 135 126 Pulse Ox 94 Oxygen Delivery Method Room Air Positive well nourished, well developed and obese General Appearance ED: well developed; Negative for pallor Nutritional Appearance: obese HEENT HEENT Narrative: There is a large clot and trickle of bright red blood out of the right nostril consistent with history of nosebleed. There is mild overflow bleeding into the left nostril as well as in the posterior pharynx. There is no obvious septal injury to act as the source and no signs of septal hematoma. Eyes PERRL and EOMs intact bilaterally General Eye ED: Negative for pale conjunctiva or scleral icterus Neck supple Resp normal respiratory effort and clear to auscultation bilaterally Cardio regular rate and regular rhythm Extremity normal to inspection Neuro oriented x3, CN's II-XII intact bilaterally and no sensory deficits noted Sensorium / Orientation: alert Motor Exam: strength 5/5 throughout Psych mental status grossly normal Skin no rashes or lesions noted General Skin Exam: Negative for jaundice or pallor MDM MDM MDM Narrative Medical decision making narrative: Patient arrived to the ER hypertensive but has a past medical history of this and otherwise vitals are stable. She reports has been having intermittent bleeding for the past 6 nights. She is only on a baby aspirin and denies any recent sick symptoms or trauma. I have low concern for underlying nasal fracture or infection such as sinusitis as the cause. Her exam showed bleeding out of the right nostril but it is intermittent and only a mild ooze indicating it is an anterior nosebleed not posterior. At this time I do not feel the need for testing as her heart rate is normal she denies any dizziness or syncopal events and the bleeding has only been intermittent over the past few nights and I have low concern for acute blood loss anemia. However as the bleeding has been recurrent I do not feel the need for treatment with silver nitrate or Afrin but simply nasal packing to ensure there is no further breakthrough bleeding. Therefore the patient was instructed to blow her nose and evacuate any clots. Following this a 5.5 cm rapid Rhino was placed into the right nostril and inserted to 4 cc of air. The patient was watched in the ER for approximately 30 minutes there was no further bleeding from the right nostril or overflowing to the left or in the posterior pharynx indicating the bleeding has been controlled with the nasal packing. Therefore patient is safe for discharge and can follow-up with ENT for repeat evaluation History & Record Review Discussion w/independent historian: Patient and Significant other Discharge Plan Triage Chief Complaint: Nosebleed ED Provider: Jose Alcantar Dx/Rx/DC Orders Clinical Impression: Acute anterior epistaxis, Hypertension Instructions: ED Epistaxis (Adult) Prescriptions: No Action anastrozole 1 mg tablet 1 mg PO DAILY Qty: 90 3RF ascorbic acid (vitamin C) [Vitamin C] 500 MG tablet 500 mg PO DAILY Allergy Relief (cetirizine) 10 MG capsule 10 mg PO DAILY famotidine 20 mg Tablet 20 mg PO DAILY aspirin 81 mg Tablet,Delayed Release (Dr/Ec) 81 mg PO DAILY atenolol 50 mg Tablet 100 mg PO QHS cranberry 500 mg Capsule 1,500 mg PO BID Multivitamin 50 Plus Tablet 1 tab PO DAILY cholecalciferol (vitamin D3) 125 mcg (5,000 unit) Tablet 125 mcg PO DAILY ibuprofen 200 mg tablet 200 mg PO DAILY PRN (Reason: pain) losartan 50 mg tablet 50 mg PO DAILY melatonin 10 mg capsule 10 mg PO QHS NewFlora 10 billion cell capsule 100 mmu cells PO DAILY Glucosamine-Chondr (MSM-hyal) 500-66.7-500-2 mg tablet 1 tab PO BID acetaminophen 500 mg capsule 500 mg PO Q6H PRN (Reason: pain) Complex B-100 Tablet Extended Release 1 tab PO DAILY fesoterodine 4 mg tablet extended release 24 hr 8 mg PO DAILY Gemtesa 75 mg tablet 75 mg PO DAILY Primary Care Provider: Elijah Gonzalez Referrals: Phi Valdivia MD [Med Staff - Courtesy Staff] - Elijah Gonzalez MD [Primary Care Provider] - Activity Restrictions/Additional Instructions: Please leave the packing in until you are evaluated by ENT. If you develop a fever intractable pain or you have recurrent bleeding please return to the ER for repeat evaluation. Do not use your CPAP while the nasal packing is in place Print Language: [place] Disposition Disposition: Home, Self Care Discharge Date/Time: 07/10/24 05:13
== END 2024-07-10 05:13 | disposition home or self-care (01) ==
PROVIDERS: Emergency Provider Emergency Medicine; PCP Family Medicine; Visit Provider Emergency Medicine
DX: R04.0 Epistaxis (principal); I10 Essential (primary) hypertension; Z79.82 Long term (current) use of aspirin; J45.909 Unspecified asthma, uncomplicated
CPT/HCPCS: 30901; 99282

== ENCOUNTER → 2024-08-03 | Outpatient (CLI) | payer MEDICARE, SELFPAY ==
--- NOTE | 2024-08-03 09:11 | BI_ITS ---
EXAM: DIAG MAMM W/CAD, BILAT; BILAT BRST CONSTANCE STAND ALONE 08/03/2024 CLINICAL HISTORY: 79-year-old female with history of right breast cancer status post lumpectomy in December 2023 and radiation presents for diagnostic follow-up. Family history of breast cancer in her mother at 65, twin sister at 63 and another sister at 55. TECHNIQUE: Bilateral Diagnostic digital breast tomosynthesis with 2D and 3D images. Computer aided detection. COMPARISON: Prior exam(s) dated 12/16/2023, 11/23/2023, 11/01/2023, 10/28/2023, 10/26/2022, 10/23/2021, 08/28/2020, 08/14/2019. FINDINGS: TISSUE DENSITY: The breast tissue is composed of scattered area of fibroglandular density. Bilateral Breast Mammographic Findings: There are new postsurgical changes in the central outer right breast. Also, there is a group of calcifications in the slightly lower central right breast at posterior depth that have not significantly changed when compared to multiple priors dating back to 08/28/2020. Otherwise, there are no suspicious findings in either breast. BI/Bilat Brst Constance Stand Alone IMPRESSION: Postsurgical changes in the right breast are benign. There is no evidence of malignancy in either breast. OVERALL FINAL ASSESSMENT: BIRADS 2 BENIGN FINDING. RECOMMENDATION: Routine diagnostic bilateral mammogram follow-up in 1 Year A letter with findings and recommendations will be mailed to the patient. Reading Location: [id number]
--- NOTE | 2024-08-03 09:23 | BI_ITS ---
EXAM: DIAG MAMM W/CAD, BILAT; BILAT BRST CONSTANCE STAND ALONE 08/03/2024 CLINICAL HISTORY: 79-year-old female with history of right breast cancer status post lumpectomy in December 2023 and radiation presents for diagnostic follow-up. Family history of breast cancer in her mother at 65, twin sister at 63 and another sister at 55. TECHNIQUE: Bilateral Diagnostic digital breast tomosynthesis with 2D and 3D images. Computer aided detection. COMPARISON: Prior exam(s) dated 12/16/2023, 11/23/2023, 11/01/2023, 10/28/2023, 10/26/2022, 10/23/2021, 08/28/2020, 08/14/2019. FINDINGS: TISSUE DENSITY: The breast tissue is composed of scattered area of fibroglandular density. Bilateral Breast Mammographic Findings: There are new postsurgical changes in the central outer right breast. Also, there is a group of calcifications in the slightly lower central right breast at posterior depth that have not significantly changed when compared to multiple priors dating back to 08/28/2020. Otherwise, there are no suspicious findings in either breast. BI/DIAG MAMM W/CAD, BILAT IMPRESSION: Postsurgical changes in the right breast are benign. There is no evidence of malignancy in either breast. OVERALL FINAL ASSESSMENT: BIRADS 2 BENIGN FINDING. RECOMMENDATION: Routine diagnostic bilateral mammogram follow-up in 1 Year A letter with findings and recommendations will be mailed to the patient. Reading Location: [id number]
== END | disposition home or self-care (01) ==
LOC: OPBI 09:09
PROVIDERS: PCP Family Medicine; Referring Provider Student in an Organized Health Care Education/Training Program; Visit Provider Student in an Organized Health Care Education/Training Program
DX: R92.8 Other abnormal and inconclusive findings on diagnostic imaging of breast (principal); Z85.3 Personal history of malignant neoplasm of breast
CPT/HCPCS: 77062; 77066; G0279

== ENCOUNTER → 2024-08-29 | Outpatient (CLI) | payer MEDICARE, SELFPAY ==
[2024-08-29 13:32] LABS: ALB/GLOB Ratio 1.3 RATIO (0.9-2.4); AST(SGOT) 28 U/L (<=31); Alanine Aminotransfer ALT/SGPT 21 U/L (<=34); Albumin, Serum 4.1 g/dL (3.4-4.8); Alkaline Phosphatase 92 U/L (35-104); Anion Gap 11 (5-15); BUN 21 mg/dL (4-19); BUN/Creat Ratio 21.7 RATIO (10-20); Calcium,Total 9.9 mg/dL (7.6-11.0); Carbon Dioxide 25.3 mmol/L (21.0-32.0); Chloride 104 mmol/L (98-108); Cholesterol 187 mg/dL (<=200); Creatinine, Serum 0.96 mg/dL (0.70-1.20); EST Glomerular Filtration Rate 61 (>60); Globulin 3.1 g/dL (2.2-4.2); Glucose 120 mg/dL (70-99); High Density Lipoprotein 43 mg/dL; Low Density Lipoprotein Calc. 98 mg/dL; Potassium 4.6 mmol/L (3.3-5.1); Protein, Total 7.2 g/dL (5.9-8.4); Sodium Level 140 mmol/L (133-145); Total Bilirubin 0.45 mg/dL (0.00-1.30); Triglycerides 229 mg/dL; Very Low Density Lipoprotein 46 mg/dL (5-40); cholesterol:hdl ratio screen 4.32
== END | disposition home or self-care (01) ==
LOC: MFPLAB 10:14
PROVIDERS: PCP Family Medicine; Referring Provider Family Medicine; Visit Provider Family Medicine
DX: I10 Essential (primary) hypertension (principal)
CPT/HCPCS: 36415; 80053; 80061

== ENCOUNTER → 2024-10-30 | Outpatient (CLI) | payer MEDICARE, SELFPAY ==
--- NOTE | 2024-10-30 10:56 | BD_ITS ---
PROCEDURE: DEXA BONE DENSITY STUDY 10/30/2024 REASON FOR EXAM: F, age 79 y/o . Postmenopausal. TECHNIQUE: DEXA BONE DENSITY STUDY COMPARISON: Prior study dated August 14, 2019. FINDINGS: BMD and T-SCORES Lumbar spine: 1.291 g/cm2, T-score 2.2 Levels: L1 through L4 Change from prior: Loss of 5.6%. Right 1/3 radius: 0.487 g/cm2, T-score -1.7 Change from prior: Loss of 3.9%. The World Health Organization has defined the following categories based on bone density: Normal bone density: T-score equal to or greater than -1.0 Osteopenia: T-score between -1.0 and -2.5 Osteoporosis: T-score equal to or less than -2.5 The patient does meet the pharmacological treatment recommendations for prevention of osteoporosis. BD/Dexa Bone Density Study IMPRESSION: OSTEOPENIA. Recommend follow-up as clinically warranted. Reading Location: [id number]
== END | disposition home or self-care (01) ==
LOC: OPBD 10:51
PROVIDERS: PCP Family Medicine; Referring Provider Family Medicine; Visit Provider Family Medicine
DX: Z00.00 Encounter for general adult medical examination without abnormal findings (principal); Z78.0 Asymptomatic menopausal state; N95.9 Unspecified menopausal and perimenopausal disorder
CPT/HCPCS: 77080